=== PATIENT | female | born 1945 | race Two or more races ===

== ENCOUNTER 2021-05-01 11:09 | Emergency (ER) | payer BC ==
[~2021-05-01] VITALS: Ht 152.4 cm; Wt 78.0 kg
[~2021-05-01 11:09] MED LIST: ATOR40TA52; CLOP75TA28; FENO160T8; INSU100I4; INSUINJ37; LOSA100T30
[2021-05-01 12:29] VITALS: BP 153/63
[2021-05-01] MEDS ORDERED: ACETAMINOPHEN 325 MG TAB PO ONE ×2 (15:04→15:15)
== END 2021-05-01 15:09 | disposition home or self-care (01) ==
LOC: ER 11:09
DX: R51.9 Headache, unspecified (principal); D32.9 Benign neoplasm of meninges, unspecified; E11.9 Type 2 diabetes mellitus without complications; I10 Essential (primary) hypertension; Z86.73 Personal history of transient ischemic attack (TIA), and cerebral infarction without residual deficits
CPT/HCPCS: 70450; 81002

== ENCOUNTER 2022-10-14 23:24 | Inpatient (IN) | payer MEDICARE, BC ==
[~2022-10-14] VITALS: Ht 152.4 cm; Wt 69.8 kg
[2022-10-15] MEDS ORDERED: ONDANSETRON HCL 4 MG/2 ML VIAL IV ONE ×2 (01:45→04:45)
[2022-10-15] MEDS ORDERED: MORPHINE SULFATE 4 MG/ML SYR/VIAL IV PRN (01:45)
[2022-10-15 02:37] LABS: Hemoglobin 13.7 g/dL (12.2-16.2)
[2022-10-15 02:53] LABS: INR 1.14 (0.9-1.15); Partial Thromboplastin Time 32.1 sec (24.6-33.4)
[2022-10-15 02:54] LABS: Albumin 3.3 g/dL (3.4-5.0); Calcium 9.1 mg/dL (8.5-10.1); Potassium 4.1 mmol/L (3.5-5.1)
[2022-10-15 02:56] LABS: Acetaminophen < 2.0 ug/mL (10-30); Salicylate < 1.7 mg/dL (2.8-20.0)
[2022-10-15 02:57] LABS: BUN/Creatinine Ratio 28.9; Bilirubin, Total 0.9 mg/dL (0.2-1.0); Total Protein 7.2 g/dL (6.4-8.2)
[2022-10-15 03:10] VITALS: BP 131/64
[2022-10-15 03:13] LABS: Basophils # (auto) 0.1 10 ^3/uL (0-0.2); Basophils % (auto) 0.5 % (0.0-2.0); Eosinophils # (auto) 0.1 10 ^3/uL (0-0.8); Hematocrit 42.7 % (36.0-46.0); Lymphocytes % (auto) 23.6 % (10.0-50.0); Mean Corpuscular Hemoglobin 27.8 pg (28.0-32.0); Mean Corpuscular Hgb Conc. 32.2 g/dL (32.0-36.0); Mean Corpuscular Volume 86.3 fL (80.0-100.0); Monocytes # (auto) 1.2 10 ^3/uL (0-1.3); Monocytes % (auto) 9.2 % (0.0-12.0); Neutrophils # (auto) 8.3 10 ^3/uL (1.6-8.6); Neutrophils % (auto) 65.7 % (37.0-80.0); Nucleated Red Blood Cells % 0.3 %; Red Blood Cells 4.94 10^6/uL (4.0-5.20); Red Cell Distribution Width 13.7 % (11.8-14.3); White Blood Cell 12.6 10^3/uL (4.4-10.8)
[2022-10-15] MEDS ORDERED: MORPHINE SULFATE 4 MG/ML SYR/VIAL IV ONE (04:45)
[2022-10-15 04:57] LABS: Urine Bacteria NONE SEEN /hpf (None Seen); Urine Blood Negative /uL (Negative); Urine Hyaline Cast FEW /lpf (0 - 2); Urine Specific Gravity 1.033 (1.001-1.035); Urine WBC 2 /hpf (0 - 5)
[2022-10-15 05:03] LABS: Alcohol, Urine < 3.0 mg/dL (0-10); Amphetamine Screen, Urine NEGATIVE (NEGATIVE); Barbiturate Scree,Urine NEGATIVE (NEGATIVE); Benzodiazephine Screen, Urine NEGATIVE (NEGATIVE); Cannabinoid Screen, Urine NEGATIVE (NEGATIVE); Cocaine Screen, Urine NEGATIVE (NEGATIVE); Opiate Scree,Urine POSITIVE (NEGATIVE); Phencyclidine Screen, Urine NEGATIVE (NEGATIVE)
[2022-10-15] MEDS ORDERED: DOCUSATE SOD 100 MG CAP PO PRN (10:00)
[2022-10-15] MEDS ORDERED: DEXTROSE (50%) 50ML SYRG IV PRN (10:00)
[2022-10-15] MEDS ORDERED: ONDANSETRON HCL 4 MG/2 ML VIAL IV PRN (10:00)
[2022-10-15] MEDS: MORPHINE SULFATE 4 MG/ML SYR/VIAL IV PRN ×3 (10:50→19:07)
[2022-10-15] MEDS ORDERED: COLCHICINE 0.6 MG CAP PO ONE (12:00)
[2022-10-15] MEDS: InsuLIN REG 1unit/0.01ml Soln (100units/ml) SC SCH ×3 (12:06→23:16)
[2022-10-15] MEDS: ENOXAPARIN SOD 40 MG/0.4 ML SYRINGE SC SCH (12:07)
[2022-10-15] MEDS: ACCU-CHEK COMFORT CURVE STRIP VI SCH ×3 (12:07→23:14)
[2022-10-15 20:05] VITALS: BP 127/54
[2022-10-15 20:06] VITALS: BP 127/54
[2022-10-15] MEDS ORDERED: AMLO-489 PO (20:38)
[2022-10-15] MEDS ORDERED: FINE10TA PO (20:38)
[2022-10-15] MEDS ORDERED: CLOP75TA70 PO (20:38)
[2022-10-15] MEDS ORDERED: MONT-8 PO (20:38)
[2022-10-15] MEDS ORDERED: ASPI1TAB37 PO (20:38)
[2022-10-15] MEDS ORDERED: LEV75T PO (20:38)
[2022-10-15] MEDS ORDERED: LOSA-69 PO (20:38)
[2022-10-15] MEDS ORDERED: INSU100I4 SC (20:38)
[2022-10-15] MEDS ORDERED: PANT40T PO (20:38)
[2022-10-15] MEDS ORDERED: FENO145T27 PO (20:38)
[2022-10-15] MEDS ORDERED: INSU1INJ19 SC (20:38)
[2022-10-15] MEDS ORDERED: TRAV0.0013 EACHEYE (20:38)
[2022-10-15] MEDS ORDERED: DAPA1TAB4 PO (20:38)
[2022-10-15] MEDS ORDERED: OMEG1CAP15 PO (20:38)
[2022-10-15] MEDS ORDERED: TIMO0.5S32 EACHEYE (20:38)
[2022-10-15] MEDS ORDERED: ZINC50TA7 PO (20:40)
[2022-10-15] MEDS ORDERED: ASCO500T11 PO (20:40)
[2022-10-15] MEDS ORDERED: CHOL20007 PO (20:40)
[2022-10-15 22:00] VITALS: BP 127/54
[2022-10-15] MEDS: COLCHICINE 0.6 MG CAP PO SCH (23:12)
[2022-10-15] MEDS: ATORVASTATIN 20 MG TAB PO SCH (23:13)
[2022-10-16] MEDS: MORPHINE SULFATE 4 MG/ML SYR/VIAL IV PRN ×4 (03:04→16:29)
[2022-10-16 05:00] VITALS: BP 125/58
[2022-10-16 05:42] LABS: Basophils # (auto) 0.1 10 ^3/uL (0-0.2); Basophils % (auto) 0.8 % (0.0-2.0); Eosinophils # (auto) 0.1 10 ^3/uL (0-0.8); Eosinophils % (auto) 0.4 % (0.0-7.0); Hematocrit 38.3 % (36.0-46.0); Hemoglobin 12.5 g/dL (12.2-16.2); Lymphocytes # (auto) 2.3 10 ^3/uL (0.4-5.4); Lymphocytes % (auto) 19.7 % (10.0-50.0); Mean Corpuscular Hemoglobin 28.1 pg (28.0-32.0); Mean Corpuscular Hgb Conc. 32.6 g/dL (32.0-36.0); Mean Corpuscular Volume 86.1 fL (80.0-100.0); Monocytes # (auto) 1.8 10 ^3/uL (0-1.3); Monocytes % (auto) 15.4 % (0.0-12.0); Neutrophils # (auto) 7.4 10 ^3/uL (1.6-8.6); Neutrophils % (auto) 63.7 % (37.0-80.0); Nucleated Red Blood Cells % 0.1 %; Red Blood Cells 4.45 10^6/uL (4.0-5.20); Red Cell Distribution Width 13.3 % (11.8-14.3); White Blood Cell 11.6 10^3/uL (4.4-10.8)
[2022-10-16 05:58] LABS: Albumin 2.7 g/dL (3.4-5.0); Calcium 9.2 mg/dL (8.5-10.1); Potassium 4.2 mmol/L (3.5-5.1)
[2022-10-16 06:01] LABS: BUN/Creatinine Ratio 33.3
[2022-10-16 06:13] LABS: Bilirubin, Total 1.1 mg/dL (0.2-1.0); Total Protein 6.4 g/dL (6.4-8.2)
[2022-10-16] MEDS: ACCU-CHEK COMFORT CURVE STRIP VI SCH ×4 (06:14→21:43)
[2022-10-16] MEDS: InsuLIN REG 1unit/0.01ml Soln (100units/ml) SC SCH ×4 (06:19→21:41)
[2022-10-16 09:00] VITALS: BP 134/65
[2022-10-16] MEDS: PANTOPRAZOLE 40 MG TAB PO SCH (09:12)
[2022-10-16] MEDS: CLOPIDOGREL BISULFATE 75 MG TAB PO SCH (09:12)
[2022-10-16] MEDS: ENOXAPARIN SOD 40 MG/0.4 ML SYRINGE SC SCH (09:13)
[2022-10-16] MEDS: LOSARTAN POTASSIUM 25 MG TAB PO SCH (09:13)
[2022-10-16] MEDS: COLCHICINE 0.6 MG CAP PO SCH (09:13)
[2022-10-16 13:00] VITALS: BP 125/62
[2022-10-16] MEDS ORDERED: predniSONE 20 MG TAB PO ONE (13:00)
[2022-10-16] MEDS ORDERED: PANTOPRAZOLE 40 MG TAB PO ONE (13:00)
[2022-10-16] MEDS ORDERED: HYDROcodone-ACET 5/325MG TAB PO PRN (13:15)
[2022-10-16 17:00] VITALS: BP_SYST 131; BP_SYST 141; BP_DIAS 59; BP_DIAS 93
[2022-10-16] MEDS: ATORVASTATIN 20 MG TAB PO SCH (21:42)
[2022-10-16 22:00] VITALS: BP 117/55
[2022-10-17 05:00] VITALS: BP 113/52
[2022-10-17] MEDS: InsuLIN REG 1unit/0.01ml Soln (100units/ml) SC SCH ×4 (05:41→21:47)
[2022-10-17] MEDS: ACCU-CHEK COMFORT CURVE STRIP VI SCH ×4 (05:42→21:44)
[2022-10-17] MEDS: MORPHINE SULFATE 4 MG/ML SYR/VIAL IV PRN (08:27)
[2022-10-17 08:29] VITALS: BP 127/65
[2022-10-17] MEDS ORDERED: PANTOPRAZOLE 40 MG TAB PO SCH (10:00)
[2022-10-17] MEDS ORDERED: predniSONE 20 MG TAB PO SCH (10:00)
[2022-10-17] MEDS: PANTOPRAZOLE 40 MG TAB PO SCH (10:33)
[2022-10-17] MEDS: CLOPIDOGREL BISULFATE 75 MG TAB PO SCH (10:33)
[2022-10-17] MEDS: ENOXAPARIN SOD 40 MG/0.4 ML SYRINGE SC SCH (10:34)
[2022-10-17] MEDS: LOSARTAN POTASSIUM 25 MG TAB PO SCH (10:34)
[2022-10-17 13:00] VITALS: BP 122/52
[2022-10-17 17:00] VITALS: BP 116/56
[2022-10-17] MEDS: ATORVASTATIN 20 MG TAB PO SCH (21:47)
[2022-10-17 22:00] VITALS: BP 116/46
[2022-10-18 05:00] VITALS: BP 121/50
[2022-10-18] MEDS: ACCU-CHEK COMFORT CURVE STRIP VI SCH ×4 (06:28→22:13)
[2022-10-18] MEDS: InsuLIN REG 1unit/0.01ml Soln (100units/ml) SC SCH ×4 (06:37→22:21)
[2022-10-18 09:00] VITALS: BP 128/55
[2022-10-18] MEDS: INSULIN LANTUS (GLARGINE) 1 /0.01ml (100units/ml) SC SCH (09:24)
[2022-10-18 09:40] LABS: Basophils # (auto) 0 10 ^3/uL (0-0.2); Basophils % (auto) 0.2 % (0.0-2.0); Eosinophils # (auto) 0 10 ^3/uL (0-0.8); Hematocrit 40.3 % (36.0-46.0); Hemoglobin 13.3 g/dL (12.2-16.2); Lymphocytes # (auto) 1.9 10 ^3/uL (0.4-5.4); Lymphocytes % (auto) 19.6 % (10.0-50.0); Mean Corpuscular Hemoglobin 28.6 pg (28.0-32.0); Mean Corpuscular Volume 86.4 fL (80.0-100.0); Monocytes # (auto) 0.6 10 ^3/uL (0-1.3); Monocytes % (auto) 6.4 % (0.0-12.0); Neutrophils # (auto) 7.3 10 ^3/uL (1.6-8.6); Neutrophils % (auto) 73.8 % (37.0-80.0); Nucleated Red Blood Cells % 0.1 %; Red Blood Cells 4.66 10^6/uL (4.0-5.20); Red Cell Distribution Width 13.5 % (11.8-14.3); White Blood Cell 9.9 10^3/uL (4.4-10.8)
[2022-10-18] MEDS: predniSONE 20 MG TAB PO SCH (09:41)
[2022-10-18] MEDS: PANTOPRAZOLE 40 MG TAB PO SCH (09:42)
[2022-10-18] MEDS: CLOPIDOGREL BISULFATE 75 MG TAB PO SCH (09:42)
[2022-10-18] MEDS: LOSARTAN POTASSIUM 25 MG TAB PO SCH (09:45)
[2022-10-18] MEDS: ENOXAPARIN SOD 40 MG/0.4 ML SYRINGE SC SCH (09:46)
[2022-10-18 10:02] LABS: Albumin 2.3 g/dL (3.4-5.0); Calcium 10.1 mg/dL (8.5-10.1); Potassium 4.6 mmol/L (3.5-5.1)
[2022-10-18 10:06] LABS: BUN/Creatinine Ratio 49.1; Bilirubin, Total 0.4 mg/dL (0.2-1.0); Total Protein 7.5 g/dL (6.4-8.2)
[2022-10-18 13:00] VITALS: BP 125/54
[2022-10-18] MEDS ORDERED: HYDROcodone-ACET 5/325MG TAB PO PRN (14:30)
[2022-10-18 17:00] VITALS: BP 136/55
[2022-10-18 22:00] VITALS: BP 136/67
[2022-10-18] MEDS: ATORVASTATIN 20 MG TAB PO SCH (22:14)
[2022-10-19 05:00] VITALS: BP 149/55
[2022-10-19] MEDS: MORPHINE SULFATE 4 MG/ML SYR/VIAL IV PRN (05:24)
[2022-10-19] MEDS: ACCU-CHEK COMFORT CURVE STRIP VI SCH ×2 (05:56→11:30)
[2022-10-19] MEDS: InsuLIN REG 1unit/0.01ml Soln (100units/ml) SC SCH ×2 (06:00→12:16)
[2022-10-19 08:38] VITALS: BP 138/69
[2022-10-19] MEDS: INSULIN LANTUS (GLARGINE) 1 /0.01ml (100units/ml) SC SCH (09:08)
[2022-10-19] MEDS: ENOXAPARIN SOD 40 MG/0.4 ML SYRINGE SC SCH (10:40)
[2022-10-19] MEDS: PANTOPRAZOLE 40 MG TAB PO SCH (10:46)
[2022-10-19] MEDS: predniSONE 20 MG TAB PO SCH (10:47)
[2022-10-19] MEDS: CLOPIDOGREL BISULFATE 75 MG TAB PO SCH (10:47)
[2022-10-19] MEDS: LOSARTAN POTASSIUM 25 MG TAB PO SCH (10:50)
[2022-10-19 13:14] VITALS: BP 129/61
[2022-10-19] MEDS ORDERED: METH4PAK PO (14:01)
== END 2022-10-19 15:50 | disposition home or self-care (01) | DRG 554 ==
LOC: ER 23:24 → OVERFLOW 10-15 10:05 → EAST 10-15 19:36
PROVIDERS: ADMIT Nurse Practitioner Family; ATTEND Student in an Organized Health Care Education/Training Program
DX: M11.831 Other specified crystal arthropathies, right wrist (principal); M11.861 Other specified crystal arthropathies, right knee; M10.9 Gout, unspecified; I25.10 Atherosclerotic heart disease of native coronary artery without angina pectoris; G89.29 Other chronic pain; I10 Essential (primary) hypertension; E11.65 Type 2 diabetes mellitus with hyperglycemia; D72.829 Elevated white blood cell count, unspecified; E78.5 Hyperlipidemia, unspecified; E11.9 Type 2 diabetes mellitus without complications; M13.131 Monoarthritis, not elsewhere classified, right wrist; Z20.822 Contact with and (suspected) exposure to COVID-19; M54.9 Dorsalgia, unspecified; Z86.73 Personal history of transient ischemic attack (TIA), and cerebral infarction without residual deficits; Z79.02 Long term (current) use of antithrombotics/antiplatelets; Z95.5 Presence of coronary angioplasty implant and graft
CPT/HCPCS: 36415; 71045; 72040; 73030; 73110; 76881; 80053; 80307; 80320; 80329; 81001; 82962; 83880; 84443; 84484; 84550; 85025; 85610; 85652; 85730; 86141; 87426; 93005; 93971; 96374; 96375; 96376; G0378; J1815; J2405

== ENCOUNTER 2023-05-11 23:51 | Emergency (ER) | payer MEDICARE, BC ==
[~2023-05-11] VITALS: Ht 152.4 cm; Wt 72.8 kg
[~2023-05-11 23:51] MED LIST changes: +AMLO1TAB22 PO; +ASCO500T11 PO; +ASPI-628 PO; -ATOR40TA52; +CHOL20007 PO; -CLOP75TA28; +CLOP75TA70 PO; +DAPA1TAB4 PO; +FENO145T27 PO; -FENO160T8; +FINE10TA PO; -INSU100I4; +INSU100I4 SC; +INSU1INJ19 SC; -INSUINJ37; +LEV75T PO; -LOSA100T30; +LOSA50TA46 PO; +METH4PAK PO; +MONT-8 PO; +OMEG1CAP15 PO; +PANT40T PO; +TIMO0.5S32 EACHEYE; +TRAV0.0013 EACHEYE; +ZINC50TA7 PO
[2023-05-12] MEDS ORDERED: SODIUM CHLORIDE 0.9% 1,000 ML IV ONE (00:30)
[2023-05-12 00:55] LABS: Albumin 3.9 g/dL (3.4-5.0); BUN/Creatinine Ratio 31.6 (10.0-20.0); Calcium 9.3 mg/dL (8.5-10.1); Potassium 4.3 mmol/L (3.5-5.1)
[2023-05-12 00:58] LABS: Bilirubin, Total 0.4 mg/dL (0.2-1.0); Total Protein 8.2 g/dL (6.4-8.2)
[2023-05-12 01:03] LABS: Basophils # (auto) 0 10 ^3/uL (0-0.2); Basophils % (auto) 0.3 % (0.0-2.0); Eosinophils # (auto) 0 10 ^3/uL (0-0.8); Hematocrit 44.6 % (36.0-46.0); Hemoglobin 14.8 g/dL (12.2-16.2); Lymphocytes # (auto) 1.9 10 ^3/uL (0.4-5.4); Lymphocytes % (auto) 20.9 % (10.0-50.0); Mean Corpuscular Hemoglobin 28.3 pg (28.0-32.0); Mean Corpuscular Hgb Conc. 33.1 g/dL (32.0-36.0); Mean Corpuscular Volume 85.5 fL (80.0-100.0); Monocytes # (auto) 0.1 10 ^3/uL (0-1.3); Monocytes % (auto) 0.9 % (0.0-12.0); Neutrophils # (auto) 7.2 10 ^3/uL (1.6-8.6); Neutrophils % (auto) 77.9 % (37.0-80.0); Red Blood Cells 5.21 10^6/uL (4.0-5.20); Red Cell Distribution Width 14.5 % (11.8-14.3); White Blood Cell 9.2 10^3/uL (4.4-10.8)
[2023-05-12] MEDS ORDERED: InsuLIN REG 1unit/0.01ml Soln (100units/ml) IV ONE (01:15)
[2023-05-12 01:58] VITALS: BP 165/60; PULSE 83; RESP 16; TEMP 97.3; O2SAT 95
== END 2023-05-12 02:47 | disposition home or self-care (01) ==
LOC: ER 23:51
DX: E11.9 Type 2 diabetes mellitus without complications (principal); I10 Essential (primary) hypertension; I25.2 Old myocardial infarction; Z86.73 Personal history of transient ischemic attack (TIA), and cerebral infarction without residual deficits; Z98.890 Other specified postprocedural states; Z79.82 Long term (current) use of aspirin; Z79.4 Long term (current) use of insulin; Z79.899 Other long term (current) drug therapy
CPT/HCPCS: 36415; 71045; 80053; 82962; 84484; 85025; 96374; 99284; J1815; J7030

== ENCOUNTER 2023-06-13 15:44 | Emergency (ER) | payer BC ==
[~2023-06-13] VITALS: Ht 152.4 cm; Wt 72.6 kg
[2023-06-13 16:41] LABS: Basophils # (auto) 0.2 10 ^3/uL (0-0.2); Basophils % (auto) 2.7 % (0.0-2.0); Eosinophils # (auto) 0.2 10 ^3/uL (0-0.8); Eosinophils % (auto) 2.8 % (0.0-7.0); Hematocrit 41.5 % (36.0-46.0); Hemoglobin 13.6 g/dL (12.2-16.2); Lymphocytes # (auto) 3.4 10 ^3/uL (0.4-5.4); Lymphocytes % (auto) 40.8 % (10.0-50.0); Mean Corpuscular Hemoglobin 27.9 pg (28.0-32.0); Mean Corpuscular Hgb Conc. 32.7 g/dL (32.0-36.0); Mean Corpuscular Volume 85.2 fL (80.0-100.0); Monocytes # (auto) 0.6 10 ^3/uL (0-1.3); Monocytes % (auto) 6.9 % (0.0-12.0); Neutrophils # (auto) 3.9 10 ^3/uL (1.6-8.6); Neutrophils % (auto) 46.8 % (37.0-80.0); Nucleated Red Blood Cells % 0.1 %; Red Blood Cells 4.87 10^6/uL (4.0-5.20); White Blood Cell 8.3 10^3/uL (4.4-10.8)
[2023-06-13 16:54] LABS: INR 1.05 (0.9-1.15); Partial Thromboplastin Time 30.7 SEC (24.5-34.5)
[2023-06-13 17:04] LABS: Potassium 4.2 mmol/L (3.5-5.1)
[2023-06-13 17:09] LABS: Albumin 3.6 g/dL (3.4-5.0); Calcium 9.3 mg/dL (8.5-10.1)
[2023-06-13 17:12] LABS: Bilirubin, Total 0.2 mg/dL (0.2-1.0); Total Protein 7.3 g/dL (6.4-8.2)
[2023-06-13 18:35] VITALS: BP 140/70; PULSE 65; RESP 16; O2SAT 96
== END 2023-06-13 18:43 | disposition home or self-care (01) ==
LOC: ER 15:44
DX: M71.38 Other bursal cyst, other site (principal); I12.9 Hypertensive chronic kidney disease with stage 1 through stage 4 chronic kidney disease, or unspecified chronic kidney disease; E13.22 Other specified diabetes mellitus with diabetic chronic kidney disease; N18.30 Chronic kidney disease, stage 3 unspecified; Z98.890 Other specified postprocedural states; Z87.891 Personal history of nicotine dependence; Z79.899 Other long term (current) drug therapy; Z79.84 Long term (current) use of oral hypoglycemic drugs; Z86.73 Personal history of transient ischemic attack (TIA), and cerebral infarction without residual deficits
CPT/HCPCS: 36415; 80053; 85025; 85610; 85730; 93971

== ENCOUNTER 2024-06-20 15:53 | Inpatient (IN) | payer MEDICARE, BC ==
[~2024-06-20] VITALS: Ht 152.4 cm; Wt 72.0 kg
[~2024-06-20 15:53] MED LIST changes: +LOSA-534 PO; -LOSA50TA46 PO
[2024-06-20 17:30] LABS: Albumin 3.9 g/dL (3.2-4.8); Alkaline Phosphatase 92 U/L (46-116); Anion Gap 7 (5-15); Aspartate Aminotransferase 17 U/L (13-40); BUN/Creatinine Ratio 15.4 (10.0-20.0); Bilirubin, Total 0.3 mg/dL (0.2-1.0); Blood Urea Nitrogen 12 mg/dL (9-23); Calcium 9.3 mg/dL (8.7-10.4); Carbon Dioxide 23 mmol/L (20-30); Chloride 112 mmol/L (98-107); Glucose 80 mg/dL (74-106); Lipase 30 U/L (12-53); Potassium 4.1 mmol/L (3.5-5.1); Sodium 142 mmol/L (136-145); Total Protein 7.5 g/dL (5.7-8.2)
[2024-06-20 18:23] LABS: Alanine Aminotransferase 9 U/L (7-40)
[2024-06-20 18:37] LABS: Basophils # (auto) 0.1 10 ^3/uL (0-0.2); Basophils % (auto) 1.8 % (0.0-2.0); Eosinophils # (auto) 0.3 10 ^3/uL (0-0.8); Eosinophils % (auto) 4.6 % (0.0-7.0); Hematocrit 44.2 % (36.0-46.0); Hemoglobin 14.6 g/dL (12.2-16.2); Lymphocytes # (auto) 3.6 10 ^3/uL (0.4-5.4); Lymphocytes % (auto) 50.5 % (10.0-50.0); Mean Corpuscular Hemoglobin 29.5 pg (28.0-32.0); Mean Corpuscular Volume 89.5 fL (80.0-100.0); Monocytes # (auto) 0.6 10 ^3/uL (0-1.3); Monocytes % (auto) 8.7 % (0.0-12.0); Neutrophils # (auto) 2.5 10 ^3/uL (1.6-8.6); Neutrophils % (auto) 34.4 % (37.0-80.0); Platelet Count (auto) 325 10^3/uL (140-450); Red Blood Cells 4.94 10^6/uL (4.0-5.20); Red Cell Distribution Width 14.6 % (11.8-14.3); White Blood Cell 7.2 10^3/uL (4.4-10.8)
[2024-06-20] MEDS: PANTOPRAZOLE 40 MG/10 ML VIAL INJ IV ONE (21:10)
[2024-06-20 21:20] VITALS: PULSE 60; RESP 16; O2SAT 94
[2024-06-20] MEDS ORDERED: DOCUSATE SOD 100 MG CAP PO PRN (21:30)
[2024-06-20] MEDS ORDERED: DEXTROSE (50%) 50ML SYRG IV PRN (21:30)
[2024-06-20] MEDS ORDERED: ACETAMINOPHEN 325 MG TAB PO PRN (21:30)
[2024-06-20] MEDS: LACTATED RINGER'S 1,000 ML IV ONE (21:30)
[2024-06-20] MEDS ORDERED: ONDANSETRON HCL 4 MG/2 ML VIAL IV PRN (21:30)
[2024-06-20] MEDS: INSULIN LANTUS (GLARGINE) 1 /0.01ml (100units/ml) SC SCH (22:00)
[2024-06-20] MEDS: TRAVOPROST 0.004% EACHEYE SCH (22:00)
[2024-06-20 22:02] LABS: Urine Bacteria FEW /hpf (None Seen); Urine Blood Negative /uL (Negative); Urine Budding Yeast OCCASIONAL /hpf (None Seen); Urine Clarity Clear (Clear); Urine Color Light-Yellow (Yellow); Urine Protein, UAD TRACE (Negative); Urine Urobilinogen Normal (Negative); Urine WBC 38 /hpf (0 - 5)
[2024-06-20] MEDS: SODIUM CHLOR 0.9% PF (SALINE LOCK) 10ML VIAL/SYR IV SCH (22:04)
[2024-06-20] MEDS: TIMOLOL MAL 0.5% OPTH(EYE) SOL 5ML EACHEYE SCH (22:37)
[2024-06-20] MEDS: LOSARTAN POTASSIUM 50 MG TAB PO SCH (22:39)
[2024-06-21] MEDS: InsuLIN REG 1unit/0.01ml Soln (100units/ml) SC SCH
[2024-06-21] MEDS: ACCU-CHEK COMFORT CURVE STRIP VI SCH
[2024-06-21 01:40] VITALS: BP 145/74; PULSE 107; RESP 16; TEMP 98.4; O2SAT 97
[2024-06-21 05:00] VITALS: BP_SYST 131; BP_SYST 171; BP_DIAS 64; BP_DIAS 78; PULSE 114; PULSE 59; RESP 16; TEMP 98.5; O2SAT 94; O2SAT 97
[2024-06-21] MEDS: cloNIDine HCL 0.1 MG TAB PO ONE (06:13)
[2024-06-21] MEDS: LEVOTHYROXINE SODIUM 50 MCG TAB PO SCH (06:14)
[2024-06-21 07:12] LABS: Albumin 3.7 g/dL (3.2-4.8); Alkaline Phosphatase 87 U/L (46-116); Anion Gap 7 (5-15); Aspartate Aminotransferase 18 U/L (13-40); BUN/Creatinine Ratio 18.2 (10.0-20.0); Blood Urea Nitrogen 10 mg/dL (9-23); Calcium 9.4 mg/dL (8.7-10.4); Carbon Dioxide 25 mmol/L (20-30); Chloride 108 mmol/L (98-107); Glucose 80 mg/dL (74-106); Potassium 3.5 mmol/L (3.5-5.1); Sodium 140 mmol/L (136-145)
[2024-06-21 07:13] LABS: Bilirubin, Total 0.5 mg/dL (0.2-1.0)
[2024-06-21 07:16] LABS: Alanine Aminotransferase < 9 U/L (7-40)
[2024-06-21 07:19] LABS: Basophils # (auto) 0.1 10 ^3/uL (0-0.2); Basophils % (auto) 1.4 % (0.0-2.0); Eosinophils # (auto) 0.4 10 ^3/uL (0-0.8); Eosinophils % (auto) 4.9 % (0.0-7.0); Hematocrit 43.3 % (36.0-46.0); Hemoglobin 14.3 g/dL (12.2-16.2); Lymphocytes # (auto) 3.3 10 ^3/uL (0.4-5.4); Lymphocytes % (auto) 42.3 % (10.0-50.0); Mean Corpuscular Hemoglobin 29.6 pg (28.0-32.0); Mean Corpuscular Volume 89.8 fL (80.0-100.0); Monocytes # (auto) 0.7 10 ^3/uL (0-1.3); Monocytes % (auto) 8.5 % (0.0-12.0); Neutrophils # (auto) 3.3 10 ^3/uL (1.6-8.6); Neutrophils % (auto) 42.9 % (37.0-80.0); Nucleated Red Blood Cells % 0.2 %; Platelet Count (auto) 293 10^3/uL (140-450); Red Blood Cells 4.82 10^6/uL (4.0-5.20); Red Cell Distribution Width 14.3 % (11.8-14.3); White Blood Cell 7.7 10^3/uL (4.4-10.8)
[2024-06-21 08:54] VITALS: BP 126/63; PULSE 55; RESP 18; TEMP 97.6; O2SAT 92
[2024-06-21 09:33] LABS: INR 1.13 (0.9-1.15); Prothrombin Time 11.9 sec (9.3-11.8)
[2024-06-21 10:06] LABS: Hepatitis B Surface Antigen Negative (Negative)
[2024-06-21 10:27] LABS: Hepatitis C Antibody Negative (Negative)
[2024-06-21] MEDS ORDERED: BACL10TA PO (10:54)
[2024-06-21] MEDS ORDERED: CARV6.2551 PO (10:54)
[2024-06-21] MEDS: ASCORBIC ACID 500 MG TAB PO SCH (10:57)
[2024-06-21] MEDS: ZINC SULFATE 220mg CAP or TAB PO SCH (10:57)
[2024-06-21] MEDS: PANTOPRAZOLE 40 MG/10 ML VIAL INJ IV SCH (10:58)
[2024-06-21] MEDS: amLODIPine BESYLATE 5 MG TAB PO SCH (11:00)
[2024-06-21 11:42] VITALS: BP 105/65; PULSE 59; RESP 16; TEMP 98.2; O2SAT 92
[2024-06-21 16:39] VITALS: BP 132/72; PULSE 65; RESP 16; TEMP 98; O2SAT 90
[2024-06-21] MEDS: metroNIDAZOLE 500MG/100ML 100 ML IV SCH (16:52)
[2024-06-21] MEDS: CHOLECALCIFEROL (VITD3) 1,000UNIT=25mCg TAB PO SCH (16:56)
[2024-06-21] MEDS: OMEGA ACID ETHYL ESTERS PO SCH (16:57)
[2024-06-21] MEDS: FENOFIBRATE 145 MG PO SCH (16:58)
[2024-06-21] MEDS: MONTELUKAST SODIUM 10 MG TAB PO SCH (18:56)
[2024-06-21] MEDS: levoFLOXacin 500MG 100 ML IV ONE (18:58)
[2024-06-21 21:00] VITALS: BP 135/63; PULSE 66; RESP 20; TEMP 98; O2SAT 96
[2024-06-21] MEDS: ENOXAPARIN SOD 40 MG/0.4 ML SYRINGE SC ONE (21:29)
[2024-06-21] MEDS: ASPirin 81 mg TAB PO ONE (21:56)
[2024-06-22] VITALS (7 sets, daily range): BP systolic 131–164; BP diastolic 60–90; PULSE 57–61; RESP 16–20; TEMP 36.7; O2SAT 95–96
[2024-06-22 06:01] LABS: Basophils # (auto) 0.1 10 ^3/uL (0-0.2); Basophils % (auto) 1.2 % (0.0-2.0); Eosinophils # (auto) 0.3 10 ^3/uL (0-0.8); Eosinophils % (auto) 5.2 % (0.0-7.0); Hematocrit 40.5 % (36.0-46.0); Hemoglobin 13.9 g/dL (12.2-16.2); Lymphocytes # (auto) 2.9 10 ^3/uL (0.4-5.4); Lymphocytes % (auto) 48.4 % (10.0-50.0); Mean Corpuscular Hemoglobin 30.3 pg (28.0-32.0); Mean Corpuscular Hgb Conc. 34.3 g/dL (32.0-36.0); Mean Corpuscular Volume 88.4 fL (80.0-100.0); Monocytes # (auto) 0.6 10 ^3/uL (0-1.3); Monocytes % (auto) 9.3 % (0.0-12.0); Neutrophils # (auto) 2.2 10 ^3/uL (1.6-8.6); Neutrophils % (auto) 35.9 % (37.0-80.0); Nucleated Red Blood Cells % 0.2 %; Platelet Count (auto) 272 10^3/uL (140-450); Red Blood Cells 4.58 10^6/uL (4.0-5.20); Red Cell Distribution Width 14.2 % (11.8-14.3)
[2024-06-22 06:21] LABS: Albumin 3.4 g/dL (3.2-4.8); Alkaline Phosphatase 86 U/L (46-116); Anion Gap 6 (5-15); Aspartate Aminotransferase 16 U/L (13-40); BUN/Creatinine Ratio 18.6 (10.0-20.0); Blood Urea Nitrogen 11 mg/dL (9-23); Calcium 9.4 mg/dL (8.7-10.4); Carbon Dioxide 25 mmol/L (20-30); Chloride 108 mmol/L (98-107); Glucose 98 mg/dL (74-106); Potassium 3.6 mmol/L (3.5-5.1); Sodium 139 mmol/L (136-145)
[2024-06-22 06:22] LABS: Bilirubin, Total 0.5 mg/dL (0.2-1.0); Total Protein 6.5 g/dL (5.7-8.2)
[2024-06-22 06:24] LABS: Alanine Aminotransferase < 9 U/L (7-40)
[2024-06-22] MEDS: levoFLOXacin 250MG 50 ML IV SCH (11:25)
[2024-06-22] MEDS: ENOXAPARIN SOD 40 MG/0.4 ML SYRINGE SC SCH (11:26)
[2024-06-22] MEDS: ASPirin 81 mg TAB PO SCH (11:27)
[2024-06-22] MEDS: HYDROcodone-ACET 5/325MG TAB PO PRN (11:27)
[2024-06-22] MEDS ORDERED: ACETAMINOPHEN 325 MG TAB PO PRN (16:15)
== END 2024-06-22 17:33 | disposition home or self-care (01) | DRG 392 ==
LOC: ER 15:53 → WEST WING 21:19 → OVERFLOW 21:19 → WEST WING 06-21 01:44
PROVIDERS: ADMIT Internal Medicine Pulmonary Disease; ATTEND Internal Medicine Pulmonary Disease
DX: K52.9 Noninfective gastroenteritis and colitis, unspecified (principal); K92.2 Gastrointestinal hemorrhage, unspecified; I10 Essential (primary) hypertension; E03.9 Hypothyroidism, unspecified; H40.9 Unspecified glaucoma; E11.9 Type 2 diabetes mellitus without complications; Z86.73 Personal history of transient ischemic attack (TIA), and cerebral infarction without residual deficits; Z79.899 Other long term (current) drug therapy; Z79.4 Long term (current) use of insulin
CPT/HCPCS: 36415; 74176; 76705; 80053; 81001; 82270; 82962; 83605; 83690; 84484; 85025; 85048; 85610; 86803; 87045; 87177; 87340; 87427; 87493; 93005; 93971; 96374; G0378; J1815; J1956; J2470; J3490

== ENCOUNTER 2024-08-02 16:21 | Inpatient (IN) | payer MEDICARE, BC ==
[~2024-08-02] VITALS: Ht 149.9 cm; Wt 77.5 kg
[~2024-08-02 16:21] MED LIST changes: +BACL10TA PO; +CARV6.2551 PO; -METH4PAK PO
[2024-08-02 17:22] LABS: Basophils # (auto) 0.1 10 ^3/uL (0-0.2); Basophils % (auto) 1.1 % (0.0-2.0); Eosinophils # (auto) 0.3 10 ^3/uL (0-0.8); Eosinophils % (auto) 3.1 % (0.0-7.0); Hematocrit 40.9 % (36.0-46.0); Lymphocytes # (auto) 3.4 10 ^3/uL (0.4-5.4); Lymphocytes % (auto) 37.1 % (10.0-50.0); Mean Corpuscular Hemoglobin 30.5 pg (28.0-32.0); Mean Corpuscular Hgb Conc. 34.3 g/dL (32.0-36.0); Mean Corpuscular Volume 88.8 fL (80.0-100.0); Monocytes # (auto) 0.9 10 ^3/uL (0-1.3); Monocytes % (auto) 9.2 % (0.0-12.0); Neutrophils # (auto) 4.6 10 ^3/uL (1.6-8.6); Neutrophils % (auto) 49.5 % (37.0-80.0); Nucleated Red Blood Cells % 0.1 %; Platelet Count (auto) 247 10^3/uL (140-450); Red Cell Distribution Width 14.4 % (11.8-14.3); White Blood Cell 9.2 10^3/uL (4.4-10.8)
[2024-08-02 17:30] LABS: INR 1.12 (0.9-1.15); Prothrombin Time 11.8 sec (9.3-11.8)
[2024-08-02 17:37] LABS: Alanine Aminotransferase 10 U/L (7-40); Albumin 4.2 g/dL (3.2-4.8); Alkaline Phosphatase 97 U/L (46-116); Anion Gap 9 (5-15); Aspartate Aminotransferase 13 U/L (13-40); BUN/Creatinine Ratio 26.7 (10.0-20.0); Bilirubin, Total 0.5 mg/dL (0.2-1.0); Blood Urea Nitrogen 27 mg/dL (9-23); Calcium 10.3 mg/dL (8.7-10.4); Carbon Dioxide 25 mmol/L (20-31); Chloride 107 mmol/L (98-107); Glucose 218 mg/dL (74-106); Magnesium 1.8 mg/dL (1.6-2.6); Potassium 4.2 mmol/L (3.5-5.1); Sodium 141 mmol/L (136-145)
[2024-08-02 18:54] LABS: Erythrocyte Sedimentation Rate 54 mm/hr (0-20)
[2024-08-02 20:15] VITALS: PULSE 65; RESP 15; O2SAT 93
[2024-08-02] MEDS: HYDROcodone-ACET 5/325MG TAB PO ONE (20:23)
[2024-08-02] MEDS ORDERED: DOCUSATE SOD 100 MG CAP PO PRN (22:00)
[2024-08-02] MEDS: ACCU-CHEK COMFORT CURVE STRIP VI SCH (22:00)
[2024-08-02] MEDS: InsuLIN REG 1unit/0.01ml Soln (100units/ml) SC SCH (22:00)
[2024-08-02] MEDS ORDERED: DEXTROSE (50%) 50ML SYRG IV PRN (22:00)
[2024-08-02] MEDS: SODIUM CHLOR 0.9% PF (SALINE LOCK) 10ML VIAL/SYR IV SCH (22:13)
[2024-08-02] MEDS: CARVEDILOL 3.125 MG TAB PO SCH (22:32)
[2024-08-02] MEDS ORDERED: MORPHINE SULFATE INJ 2 MG/ml SYRG IV PRN (22:45)
[2024-08-02] MEDS ORDERED: NITROGLYCERIN 0.4 MG SL TAB SL PRN (22:45)
[2024-08-02] MEDS: MORPHINE SULFATE INJ 2 MG/ml SYRG IV PRN (23:44)
[2024-08-02] MEDS: ONDANSETRON HCL 4 MG/2 ML VIAL IV PRN (23:44)
[2024-08-03] VITALS (9 sets, daily range): BP systolic 103–156; BP diastolic 51–79; PULSE 56–66; RESP 16–19; TEMP 97.6–98.6; O2SAT 91–99
[2024-08-03 06:14] LABS: Basophils # (auto) 0.1 10 ^3/uL (0-0.2); Basophils % (auto) 1.2 % (0.0-2.0); Eosinophils # (auto) 0.2 10 ^3/uL (0-0.8); Hematocrit 38.2 % (36.0-46.0); Hemoglobin 13.2 g/dL (12.2-16.2); Mean Corpuscular Hemoglobin 30.6 pg (28.0-32.0); Mean Corpuscular Hgb Conc. 34.5 g/dL (32.0-36.0); Mean Corpuscular Volume 88.7 fL (80.0-100.0); Monocytes # (auto) 0.7 10 ^3/uL (0-1.3); Monocytes % (auto) 8.6 % (0.0-12.0); Neutrophils # (auto) 4.3 10 ^3/uL (1.6-8.6); Neutrophils % (auto) 51.2 % (37.0-80.0); Platelet Count (auto) 230 10^3/uL (140-450); Red Cell Distribution Width 14.1 % (11.8-14.3); White Blood Cell 8.3 10^3/uL (4.4-10.8)
[2024-08-03 06:23] LABS: Alkaline Phosphatase 80 U/L (46-116); Anion Gap 11 (5-15); Aspartate Aminotransferase 10 U/L (13-40); BUN/Creatinine Ratio 27.7 (10.0-20.0); Bilirubin, Total 0.7 mg/dL (0.2-1.0); Blood Urea Nitrogen 18 mg/dL (9-23); Calcium 9.7 mg/dL (8.7-10.4); Carbon Dioxide 23 mmol/L (20-31); Chloride 106 mmol/L (98-107); Glucose 143 mg/dL (74-106); Potassium 3.5 mmol/L (3.5-5.1); Sodium 140 mmol/L (136-145)
[2024-08-03 06:24] LABS: Total Protein 7.1 g/dL (5.7-8.2)
[2024-08-03 06:27] LABS: Alanine Aminotransferase < 9 U/L (7-40)
[2024-08-03] MEDS: LEVOTHYROXINE SODIUM 25 MCG TAB PO SCH (06:38)
[2024-08-03] MEDS: HYDROcodone-ACET 5/325MG TAB PO PRN ×2 (06:39→21:18)
[2024-08-03] MEDS: InsuLIN REG 1unit/0.01ml Soln (100units/ml) SC SCH (06:40)
[2024-08-03] MEDS: FAMOTIDINE (10MG/ML) 2ML VL IV SCH (09:52)
[2024-08-03] MEDS: amLODIPine BESYLATE 5 MG TAB PO SCH (09:52)
[2024-08-03] MEDS: ASPirin 81 mg TAB PO SCH (09:52)
[2024-08-03] MEDS: LOSARTAN POTASSIUM 50 MG TAB PO ONE (12:21)
[2024-08-03 16:23] LABS: T3 Total 0.95 ng/mL (0.60-1.81)
[2024-08-03 16:24] LABS: Free T4 (Free Thyroxine) 1.41 ng/dL (0.89-1.76)
[2024-08-03 23:43] LABS: Urine Bacteria FEW /hpf (None Seen); Urine Blood Negative /uL (Negative); Urine Budding Yeast OCCASIONAL /hpf (None Seen); Urine Clarity Clear (Clear); Urine Color Yellow (Yellow); Urine Mucus FEW (None Seen); Urine Protein, UAD Negative (Negative); Urine Specific Gravity 1.029 (1.001-1.035); Urine Urobilinogen 2 mg/dL (Negative); Urine WBC 120 /hpf (0 - 5); Urine pH 5.5 (5.0-9.0)
[2024-08-03 23:55] LABS: Amphetamine Screen, Urine Neg (NEGATIVE); Barbiturate Scree,Urine Neg (NEGATIVE); Benzodiazephine Screen, Urine Neg (NEGATIVE); Cannabinoid Screen, Urine Neg (NEGATIVE); Cocaine Screen, Urine Neg (NEGATIVE); Opiate Scree,Urine Pos (NEGATIVE); Phencyclidine Screen, Urine Neg (NEGATIVE)
[2024-08-04] VITALS (8 sets, daily range): BP systolic 122–139; BP diastolic 42–81; PULSE 55–65; RESP 16–18; TEMP 97.8–98.4; O2SAT 89–98
[2024-08-04] MEDS: ACETAMINOPHEN 325 MG TAB PO PRN (02:25)
[2024-08-04] MEDS: cefTRIAXone 1GM/50ML D5W 50 ML IV ONE (04:52)
[2024-08-04 06:20] LABS: Basophils # (auto) 0.1 10 ^3/uL (0-0.2); Basophils % (auto) 0.9 % (0.0-2.0); Eosinophils # (auto) 0.3 10 ^3/uL (0-0.8); Eosinophils % (auto) 4.5 % (0.0-7.0); Hematocrit 39.3 % (36.0-46.0); Hemoglobin 13.2 g/dL (12.2-16.2); Lymphocytes # (auto) 3.4 10 ^3/uL (0.4-5.4); Mean Corpuscular Hemoglobin 29.7 pg (28.0-32.0); Mean Corpuscular Hgb Conc. 33.6 g/dL (32.0-36.0); Mean Corpuscular Volume 88.5 fL (80.0-100.0); Monocytes # (auto) 0.6 10 ^3/uL (0-1.3); Monocytes % (auto) 8.9 % (0.0-12.0); Neutrophils # (auto) 2.7 10 ^3/uL (1.6-8.6); Neutrophils % (auto) 37.7 % (37.0-80.0); Nucleated Red Blood Cells % 0.2 %; Platelet Count (auto) 245 10^3/uL (140-450); Red Blood Cells 4.44 10^6/uL (4.0-5.20); Red Cell Distribution Width 13.8 % (11.8-14.3)
[2024-08-04 06:27] LABS: Anion Gap 8 (5-15); Carbon Dioxide 26 mmol/L (20-31); Chloride 105 mmol/L (98-107); Potassium 3.8 mmol/L (3.5-5.1); Sodium 139 mmol/L (136-145)
[2024-08-04 06:28] LABS: Calcium 9.9 mg/dL (8.7-10.4)
[2024-08-04 06:33] LABS: BUN/Creatinine Ratio 34.3 (10.0-20.0); Blood Urea Nitrogen 24 mg/dL (9-23); Glucose 151 mg/dL (74-106)
[2024-08-04] MEDS: LOSARTAN POTASSIUM 50 MG TAB PO SCH (09:42)
[2024-08-04] MEDS ORDERED: IOHEXOL 300 MG/ML 100ML BOTTLE IJ ONE (13:09)
[2024-08-04 15:02] LABS: Urine Bacteria FEW /hpf (None Seen); Urine Blood Negative /uL (Negative); Urine Clarity Clear (Clear); Urine Color Yellow (Yellow); Urine Protein, UAD TRACE (Negative); Urine Specific Gravity 1.036 (1.001-1.035); Urine Urobilinogen Normal (Negative); Urine WBC 54 /hpf (0 - 5); Urine pH 5.5 (5.0-9.0)
[2024-08-04] MEDS: ATORVASTATIN 20 MG TAB PO SCH (22:36)
[2024-08-05] VITALS (9 sets, daily range): BP systolic 135–165; BP diastolic 53–70; PULSE 55–66; RESP 16–20; TEMP 97.6–98.4; O2SAT 91–95
[2024-08-05] MEDS: cefTRIAXone 1GM/50ML D5W 50 ML IV SCH (05:03)
[2024-08-05 06:32] LABS: Alanine Aminotransferase < 9 U/L (7-40); Alkaline Phosphatase 93 U/L (46-116); Anion Gap 8 (5-15); BUN/Creatinine Ratio 32.4 (10.0-20.0); Blood Urea Nitrogen 24 mg/dL (9-23); Calcium 10.1 mg/dL (8.7-10.4); Carbon Dioxide 24 mmol/L (20-31); Chloride 104 mmol/L (98-107); Glucose 193 mg/dL (74-106); Magnesium 1.6 mg/dL (1.6-2.6); Potassium 4.1 mmol/L (3.5-5.1); Sodium 136 mmol/L (136-145)
[2024-08-05 06:33] LABS: Albumin 4.3 g/dL (3.2-4.8); Aspartate Aminotransferase 11 U/L (13-40)
[2024-08-05 06:34] LABS: Basophils # (auto) 0.1 10 ^3/uL (0-0.2); Basophils % (auto) 1.4 % (0.0-2.0); Bilirubin, Total 0.4 mg/dL (0.2-1.0); Eosinophils # (auto) 0.4 10 ^3/uL (0-0.8); Eosinophils % (auto) 4.8 % (0.0-7.0); Hematocrit 42.2 % (36.0-46.0); Hemoglobin 14.4 g/dL (12.2-16.2); Lymphocytes # (auto) 3.1 10 ^3/uL (0.4-5.4); Lymphocytes % (auto) 42.2 % (10.0-50.0); Mean Corpuscular Hemoglobin 30.2 pg (28.0-32.0); Mean Corpuscular Volume 88.8 fL (80.0-100.0); Monocytes # (auto) 0.6 10 ^3/uL (0-1.3); Monocytes % (auto) 7.8 % (0.0-12.0); Neutrophils # (auto) 3.2 10 ^3/uL (1.6-8.6); Neutrophils % (auto) 43.8 % (37.0-80.0); Nucleated Red Blood Cells % 0.1 %; Platelet Count (auto) 288 10^3/uL (140-450); Red Blood Cells 4.75 10^6/uL (4.0-5.20); Red Cell Distribution Width 13.9 % (11.8-14.3); Total Protein 7.6 g/dL (5.7-8.2); White Blood Cell 7.3 10^3/uL (4.4-10.8)
[2024-08-06 01:00] VITALS: BP 138/55; PULSE 56; RESP 17; TEMP 97.8; O2SAT 93
[2024-08-06 05:00] VITALS: BP 150/63; PULSE 58; RESP 19; TEMP 97.7; O2SAT 94
[2024-08-06 07:06] LABS: Basophils # (auto) 0.1 10 ^3/uL (0-0.2); Basophils % (auto) 1.2 % (0.0-2.0); Eosinophils # (auto) 0.4 10 ^3/uL (0-0.8); Hematocrit 43.2 % (36.0-46.0); Hemoglobin 14.4 g/dL (12.2-16.2); Lymphocytes # (auto) 3.7 10 ^3/uL (0.4-5.4); Lymphocytes % (auto) 53.2 % (10.0-50.0); Mean Corpuscular Hemoglobin 29.9 pg (28.0-32.0); Mean Corpuscular Hgb Conc. 33.4 g/dL (32.0-36.0); Mean Corpuscular Volume 89.6 fL (80.0-100.0); Monocytes # (auto) 0.6 10 ^3/uL (0-1.3); Monocytes % (auto) 8.1 % (0.0-12.0); Neutrophils # (auto) 2.2 10 ^3/uL (1.6-8.6); Neutrophils % (auto) 31.5 % (37.0-80.0); Nucleated Red Blood Cells % 0.1 %; Platelet Count (auto) 292 10^3/uL (140-450); Red Blood Cells 4.82 10^6/uL (4.0-5.20); White Blood Cell 6.9 10^3/uL (4.4-10.8)
[2024-08-06 07:21] LABS: Chloride 105 mmol/L (98-107); Potassium 3.9 mmol/L (3.5-5.1); Sodium 138 mmol/L (136-145)
[2024-08-06 07:22] LABS: Anion Gap 9 (5-15); Calcium 9.9 mg/dL (8.7-10.4); Carbon Dioxide 24 mmol/L (20-31)
[2024-08-06 07:27] LABS: BUN/Creatinine Ratio 32.3 (10.0-20.0); Blood Urea Nitrogen 21 mg/dL (9-23); Glucose 200 mg/dL (74-106)
[2024-08-06 08:00] VITALS: BP 162/68; PULSE 61; RESP 18; TEMP 97.4; O2SAT 92
[2024-08-06] MEDS ORDERED: CEPH250C PO (09:59)
[2024-08-06] MEDS: hydrALAZINE HCL 20 MG/ML VL IV PRN (11:11)
[2024-08-06 11:30] VITALS: BP 167/81; PULSE 70
[2024-08-06 12:00] VITALS: BP 148/59; PULSE 64; RESP 20; TEMP 97.4; O2SAT 96
[2024-08-06 12:13] VITALS: BP_SYST 146; BP_SYST 148; BP_DIAS 57; BP_DIAS 68
== END 2024-08-06 13:12 | disposition home or self-care (01) | DRG 552 ==
LOC: ER 16:21 → TELE 22:33 → TELE-WESTW 22:33 → WEST WING 08-05 19:21
PROVIDERS: ADMIT Internal Medicine; ATTEND Emergency Medicine
DX: M47.812 Spondylosis without myelopathy or radiculopathy, cervical region (principal); I50.32 Chronic diastolic (congestive) heart failure; I13.0 Hypertensive heart and chronic kidney disease with heart failure and stage 1 through stage 4 chronic kidney disease, or unspecified chronic kidney disease; J96.11 Chronic respiratory failure with hypoxia; R07.89 Other chest pain; E86.0 Dehydration; E11.22 Type 2 diabetes mellitus with diabetic chronic kidney disease; E11.65 Type 2 diabetes mellitus with hyperglycemia; E66.9 Obesity, unspecified; N18.9 Chronic kidney disease, unspecified; E11.319 Type 2 diabetes mellitus with unspecified diabetic retinopathy without macular edema; I25.10 Atherosclerotic heart disease of native coronary artery without angina pectoris; M48.02 Spinal stenosis, cervical region; Z86.73 Personal history of transient ischemic attack (TIA), and cerebral infarction without residual deficits; Z88.6 Allergy status to analgesic agent; Z79.899 Other long term (current) drug therapy; Z79.82 Long term (current) use of aspirin; Z95.5 Presence of coronary angioplasty implant and graft; Z82.49 Family history of ischemic heart disease and other diseases of the circulatory system; Z83.3 Family history of diabetes mellitus; Z99.81 Dependence on supplemental oxygen; M75.02 Adhesive capsulitis of left shoulder; Z79.4 Long term (current) use of insulin; Z68.27 Body mass index [BMI] 27.0-27.9, adult
CPT/HCPCS: 36415; 70460; 70491; 71045; 72141; 73030; 80048; 80053; 80307; 81001; 82306; 82607; 82962; 83036; 83735; 83880; 84439; 84443; 84480; 84484; 84550; 85025; 85610; 85652; 85730; 86141; 87086; 93005; 93306; 93971; G0378; J1815; J2405; J3490

== ENCOUNTER 2024-10-22 23:44 | Emergency (ER) | payer MEDICARE, BC ==
[~2024-10-22] VITALS: Ht 152.4 cm; Wt 71.9 kg
[~2024-10-22 23:44] MED LIST changes: +CEPH250C PO
--- NOTE | 2024-10-23 00:16 | ED.PDOC ---
Epistaxis- HPI HPI Comments 79-year-old female presents with a chief complaint of bloody nose. Patient reports that the blood occurred spontaneously and started in the left naris, but then started coming from the right as well. Patient is on Aspirin and Plavix. Patient is on the medication due to having an upcoming surgery for stents in her carotids. No pain at this time is reported by the patient. No other symptoms or modifying factors present at this time. Chief Complaint: Nose Bleed Time Seen by MD: 00:05 Primary Care Provider: Juan Reviewed Notes: Medications, Allergies Allergies: Coded Allergies: Ibuprofen (Verified Allergy, Unknown, 06/20/24) Home Meds Active Scripts Cephalexin (KEFLEX CAPSULE) 250 Mg Cp, 2 CAP PO BID for 5 Days, #28 CAP Prov:BOGDAN FARNSWORTH RESIDENT 08/06/24 Reported Medications Carvedilol (Carvedilol) 6.25 Mg Tab, 6.25 MG PO BID, MG 06/21/24 Baclofen (Baclofen) 10 Mg Tab, 10 MG PO BID, MG 06/21/24 Cholecalciferol (VITAMIN D3) 2,000 Unit Tab, 1 TAB PO DAILY, #30 TAB 5 Refills 10/15/22 Ascorbic Acid (VITAMIN C TABLET) 500 Mg Tb, 1000 MG PO DAILY, #30 TAB 3 Refills 10/15/22 Zinc Gluconate (Zinc) 50 Mg Tab, 50 MG PO DAILY, TAB 10/15/22 [id number] Ethyl Esters ( (VASCAZEN) 1 Gm Cap, 1 CAP PO DAILY 10/15/22 Pantoprazole Sodium Sesquihydr (Pantoprazole Sodium) 40 Mg Tab, 1 TAB PO DAILY 10/15/22 Dapagliflozin Propanediol (Farxiga) 10 Mg Tab, 1 TAB PO DAILY 10/15/22 Aspirin (Aspirin Adult Low Dose) 81 Mg Tab, 1 TAB PO DAILY 10/15/22 Clopidogrel Bisulfate (CLOPIDOGREL) 75 Mg Tab, 1 TAB PO DAILY 10/15/22 Amlodipine Besylate (Amlodipine Besylate) 5 Mg Tab, 1 TAB PO DAILY 10/15/22 Finerenone (Kerendia) 10 Mg Tab, 1 TAB PO DAILY 10/15/22 Losartan Potassium (Losartan Potassium) 50 Mg Tab, 1 TAB PO BID 10/15/22 Montelukast Sodium (MONTELUKAST SODIUM) 10 Mg Tab, 1 TAB PO DAILY 10/15/22 Fenofibrate (FENOFIBRATE) 145 Mg Tab, 1 TAB PO DAILY 10/15/22 Levothyroxine Sodium (Synthroid) 75 Mcg Tab, 1 TAB PO QAM 10/15/22 Insulin Glargine (Basaglar Kwikpen) 100 Unit/Ml Inj, 30 UNITS SC HS 10/15/22 Insulin Lispro (Humalog Kwikpen) 100 Unit/Ml Inj, 15 UNITS SC TIDWMEALS 10/15/22 Travoprost (Travoprost) 0.004 % Philip, 1 DROP EACHEYE HS 10/15/22 Timolol Maleate (Ophth) (Timolol Maleate) 0.5 % Maggie, 1 DROP EACHEYE BID 10/15/22 Information Source: Patient Mode of Arrival: Ambulatory Severity: Bleeding Uncontrolled Timing: Minutes, Came on: Suddenly Duration: Since onset Prehospital treatment: None Location: Both narises Mechanism: Spontaneous onset Use of: Aspirin History of: Nasal bleeding Last Tetanus: Unknown Nose: Normal Nose: Intranasal/Septum: Blood Bleeding Status: Active bleeding Bleeding Amount: Mild Source: Both Associated signs and symptoms: None Past Medical History PAST MEDICAL HISTORY: CKF, CVA, DM, HTN, [place], Thyroid Surgical History: PTCA HVAC SPECIALIST History: No Pertinent HVAC SPECIALIST History Family History Family History: Unknown Social History Smoker: Non-Smoker, Quit Greater Than 1 Year Alcohol: Denies ETOH Use Drugs: Denies Drug Use Lives In: Home Constitutional: denies: chills, diaphoresis, fatigue, fever, malaise, sweats, weakness, others EENTM: reports: nose bleeding; denies: blurred vision, double vision, ear bleeding, ear discharge, ear drainage, ear pain, ear ringing, eye pain, eye redness, hearing loss, mouth pain, mouth swelling, nasal discharge, nose congestion, nose pain, photophobia, tearing, throat pain, throat swelling, voice changes, others Respiratory: denies: cough, hemoptysis, orthopnea, SOB at rest, shortness of breath, SOB with excertion, stridor, wheezing, others Cardiovascular: denies: chest pain, dizzy spells, diaphoresis, Dyspnea on exertion, edema, irregular heart beat, left arm pain, lightheadedness, palpitations, PND, syncope, others Gastrointestinal: denies: abdomen distended, abdominal pain, blood streaked bowels, constipated, diarrhea, dysphagia, difficulty swallowing, hematemesis, melena, nausea, poor appetite, poor fluid intake, rectal bleeding, rectal pain, vomiting, others Genitourinary: denies: abnormal vagina bleeding, burning, dyspareunia, dysuria, flank pain, frequency, hematuria, incontinence, pain, , vagina discharge, urgency, others Neurological: denies: dizziness, fainting, headache, left sided numbness, left sided weakness, numbness, paresthesia, pre-existing deficit, right sided numbness, right sided weakness, seizure, speech problems, tingling, tremors, w eakness, others Musculoskeletal: denies: back pain, gout, joint pain, joint swelling, muscle pain, muscle stiffness, neck pain, others Integumetry: denies: bruises, change in color, change in hair/nails, dryness, laceration, lesions, lumps, rash, wounds, others Allergic/Immunocompromised: denies: Difficulty Healing, Frequent Infections, Hives, Itching, others Hematologic/Lymphatic: denies: anemia, blood clots, easy bleeding, easy bruising, swollen glands, others Endocrine: denies: excessive hunger, excessive sweating, excessive thirst, excessive urination, flushing, intolerance to cold, intolerance to heat, unexplained weight gain, unexplained weight loss, others Psychiatric: denies: anxiety, bipolar disorder, depression, hopeless, panic disorder, schizophrenia, sleepless, suicidal, others All Other Systems: Reviewed and Negative Physical Exam General Appearance: No Apparent Distress, Normal HEENT: Pharynx Normal, TMs Normal, Other (BLEEDING FROM BOTH NARES) Neck: Full Range of Motion, Non-Tender, Normal, Normal Inspection Respiratory: Chest Non-Tender, Lungs Clear, No Accessory Muscle Use, No Respiratory Distress, Normal Breath Sounds Cardiovascular: No Edema, No JVD, No Murmur, No Gallop, Normal Peripheral Pulses, Regular Rate/Rhythm Breast Exam: Deferred Gastrointestinal: No Organomegaly, Non Tender, No Pulsatile Mass, Normal Bowel Sounds, Soft Genitalia: Deferred Pelvic: Deferred Rectal: Deferred Extremities: No calf tenderness, Normal capillary refill, Normal inspection, Normal range of motion, Non-tender, No pedal edema Musculoskeletal : Apperance: Normal Neurologic: Alert, multisensor intelligence officer II-XII nml as Tested, No Motor Deficits, Normal Affect, Normal Mood, No Sensory Deficits Cerebellar Function: Normal Reflexes: Normal Skin: Dry, Normal Color, Warm Lymphatic: No Adenopathy Was a procedure done? Was a procedure done?: No Differential Diagnosis (NSB) Differential Diagnosis: Anterior Nasal Bleed X-Ray, Labs, Meds, VS Vital Signs Date Time Temp Pulse Resp B/P (MAP) Pulse Ox O2 Delivery O2 Flow Rate FiO2 10/23/24 00:01 97.3 66 22 158/78 (104) 94 Time of 1ST Reevaluation: 00:35 Reevaluation 1ST: Unchanged Patient Education/Counseling: Diagnosis, Treatment, Prognosis Family Education/Counseling: Diagnosis, Treatment, Prognosis Departure 1 Departure Time of Disposition: 01:23 (Applied compression and patient's nosebleed stopped. We will discharge patient home with outpatient follow up) Impression: Primary Impression: Epistaxis Disposition: HOME / SELF CARE / HOMELESS Condition: Stable Additional Instructions: Your nosebleed stopped. It is important not to blow your nose for 24 hours. Please follow up with the regular doctor within 1 week. Discharged With: Self Critical Care Note Critical Care Time?: No Stability Stability form required: No I personally scribed for YADIEL WALLACE MD ([email or web address]) on 10/23/24 at 00:16. Electronically submitted by Federico Wheeler ([email or web address]). YADIEL WALLACE MD Oct 23, 2024 00:16
[2024-10-23 02:40] VITALS: BP 135/50; PULSE 60; RESP 18; TEMP 97.5; O2SAT 96
== END 2024-10-23 02:49 | disposition home or self-care (01) ==
LOC: ER 23:44
DX: R04.0 Epistaxis (principal); I10 Essential (primary) hypertension; E11.9 Type 2 diabetes mellitus without complications; I21.9 Acute myocardial infarction, unspecified; Z86.73 Personal history of transient ischemic attack (TIA), and cerebral infarction without residual deficits; Z79.02 Long term (current) use of antithrombotics/antiplatelets; Z79.4 Long term (current) use of insulin; Z79.82 Long term (current) use of aspirin; Z79.84 Long term (current) use of oral hypoglycemic drugs; Z88.6 Allergy status to analgesic agent

== ENCOUNTER 2024-10-23 06:43 | Emergency (ER) | payer MEDICARE, BC ==
[~2024-10-23] VITALS: Ht 152.4 cm; Wt 71.9 kg
[2024-10-23 08:06] VITALS: BP 149/68; PULSE 61; RESP 18; TEMP 97.8; O2SAT 95
--- NOTE | 2024-10-23 08:16 | ED.PDOC ---
Epistaxis- HPI HPI Comments 79 year old presents for left epistaxis. Denies trauma or injury Onset started 6 hours ago Currently on blood thinners for upcoming coronary stent Tried no treatments at home Denies chest pain shortness of breath Chief Complaint: Nose Bleed Time Seen by MD: 07:47 Primary Care Provider: MARK Penny Notes: Nurses Notes, Medications, Allergies Allergies: Coded Allergies: Ibuprofen (Verified Allergy, Unknown, 06/20/24) Home Meds Active Scripts Cephalexin (KEFLEX CAPSULE) 250 Mg Cp, 2 CAP PO BID for 5 Days, #28 CAP Prov:BOGDAN FARNSWORTH RESIDENT 08/06/24 Reported Medications Carvedilol (Carvedilol) 6.25 Mg Tab, 6.25 MG PO BID, MG 06/21/24 Baclofen (Baclofen) 10 Mg Tab, 10 MG PO BID, MG 06/21/24 Cholecalciferol (VITAMIN D3) 2,000 Unit Tab, 1 TAB PO DAILY, #30 TAB 5 Refills 10/15/22 Ascorbic Acid (VITAMIN C TABLET) 500 Mg Tb, 1000 MG PO DAILY, #30 TAB 3 Refills 10/15/22 Zinc Gluconate (Zinc) 50 Mg Tab, 50 MG PO DAILY, TAB 10/15/22 [id number] Ethyl Esters ( (VASCAZEN) 1 Gm Cap, 1 CAP PO DAILY 10/15/22 Pantoprazole Sodium Sesquihydr (Pantoprazole Sodium) 40 Mg Tab, 1 TAB PO DAILY 10/15/22 Dapagliflozin Propanediol (Farxiga) 10 Mg Tab, 1 TAB PO DAILY 10/15/22 Aspirin (Aspirin Adult Low Dose) 81 Mg Tab, 1 TAB PO DAILY 10/15/22 Clopidogrel Bisulfate (CLOPIDOGREL) 75 Mg Tab, 1 TAB PO DAILY 10/15/22 Amlodipine Besylate (Amlodipine Besylate) 5 Mg Tab, 1 TAB PO DAILY 10/15/22 Finerenone (Kerendia) 10 Mg Tab, 1 TAB PO DAILY 10/15/22 Losartan Potassium (Losartan Potassium) 50 Mg Tab, 1 TAB PO BID 10/15/22 Montelukast Sodium (MONTELUKAST SODIUM) 10 Mg Tab, 1 TAB PO DAILY 10/15/22 Fenofibrate (FENOFIBRATE) 145 Mg Tab, 1 TAB PO DAILY 10/15/22 Levothyroxine Sodium (Synthroid) 75 Mcg Tab, 1 TAB PO QAM 10/15/22 Insulin Glargine (Basaglar Kwikpen) 100 Unit/Ml Inj, 30 UNITS SC HS 10/15/22 Insulin Lispro (Humalog Kwikpen) 100 Unit/Ml Inj, 15 UNITS SC TIDWMEALS 10/15/22 Travoprost (Travoprost) 0.004 % Philip, 1 DROP EACHEYE HS 10/15/22 Timolol Maleate (Ophth) (Timolol Maleate) 0.5 % Maggie, 1 DROP EACHEYE BID 10/15/22 Mode of Arrival: Ambulatory Past Medical History PAST MEDICAL HISTORY: CKF, CVA, DM, HTN, [place], Thyroid Surgical History: PTCA SEO TEAM LEAD History: No Pertinent SEO TEAM LEAD History Family History Family History: Unknown Social History Smoker: Non-Smoker, Quit Greater Than 1 Year Alcohol: Denies ETOH Use Drugs: Denies Drug Use Lives In: Home All Other Systems: Reviewed and Negative (Per HPI) Physical Exam General Appearance: No Apparent Distress, Normal HEENT: Normal ENT Inspection, Pharynx Normal, TMs Normal, Other (Left nostril. Unable to visualize source of bleeding. Moderate bleeding. No airway obstruction.) Neck: Full Range of Motion, Non-Tender, Normal, Normal Inspection Respiratory: Chest Non-Tender, Lungs Clear, No Accessory Muscle Use, No Respiratory Distress, Normal Breath Sounds Cardiovascular: No Edema, No JVD, No Murmur, No Gallop, Normal Peripheral Pulses, Regular Rate/Rhythm Breast Exam: Deferred Gastrointestinal: No Organomegaly, Non Tender, No Pulsatile Mass, Normal Bowel Sounds, Soft Genitalia: Deferred Pelvic: Deferred Rectal: Deferred Extremities: No calf tenderness, Normal capillary refill, Normal inspection, Normal range of motion, Non-tender, No pedal edema Musculoskeletal : Apperance: Normal Neurologic: Alert, gas meter checker II-XII nml as Tested, No Motor Deficits, Normal Affect, Normal Mood, No Sensory Deficits Cerebellar Function: Normal Reflexes: Normal Skin: Dry, Normal Color, Warm Lymphatic: No Adenopathy Was a procedure done? Was a procedure done?: Yes Sedation Sedation?: No Nasal Cautery and Pack Indicaton: Anterior epitaxis Hemostasis: Was obtained Location of packing: Left Packing: Expanding sponge Informed consent obtained: Yes Risks/benefits/alt described: Yes Differential Diagnosis (NSB) Differential Diagnosis: Anterior Nasal Bleed, Posterior Nasal Bleed X-Ray, Labs, Meds, VS Vital Signs Date Time Temp Pulse Resp B/P (MAP) Pulse Ox O2 Delivery O2 Flow Rate FiO2 10/23/24 08:06 61 18 95 Room Air 10/23/24 08:06 97.8 61 18 149/68 (95) 95 97.8 10/23/24 07:11 97.8 61 18 149/68 (95) 95 Lab Test 10/23/24 08:39 Range/Units White Blood Count 9.5 4.4-10.8 10^3/uL Red Blood Count 5.09 4.0-5.20 10^6/uL Hemoglobin 14.7 12.2-16.2 g/dL Hematocrit 44.8 36.0-46.0 % Mean Corpuscular Volume 88.0 80.0-100.0 fL Mean Corpuscular Hemoglobin 28.8 28.0-32.0 pg Mean Corpuscular Hemoglobin Concent 32.8 32.0-36.0 g/dL Red Cell Distribution Width 14.8 H 11.8-14.3 % Platelet Count 280 140-450 10^3/uL Mean Platelet Volume 8.6 6.9-10.8 fL Neutrophils (%) (Auto) 50.4 37.0-80.0 % Lymphocytes (%) (Auto) 38.1 10.0-50.0 % Monocytes (%) (Auto) 6.8 0.0-12.0 % Eosinophils (%) (Auto) 2.9 0.0-7.0 % Basophils (%) (Auto) 1.8 0.0-2.0 % Neutrophils # (Auto) 4.8 1.6-8.6 10 ^3/uL Lymphocytes # (Auto) 3.6 0.4-5.4 10 ^3/uL Monocytes # (Auto) 0.6 0-1.3 10 ^3/uL Eosinophils # (Auto) 0.3 0-0.8 10 ^3/uL Basophils # (Auto) 0.2 0-0.2 10 ^3/uL Nucleated Red Blood Cells 0.0 % Prothrombin Time 11.5 9.3-11.8 sec Prothrombin Time INR 1.09 0.9-1.15 Current Medications Medications (Trade) Dose Ordered Sig/Lance Route Start Time Stop Time Status Last Admin Tranexamic Acid 1000 mg/Sodium Chloride 110 ml @ 0 mls/hr ONCE ONCE IV 10/23/24 08:15 10/23/24 08:29 DC 10/23/24 08:35 Acetaminophen (Tylenol Tablet) 650 mg ONCE ONCE PO 10/23/24 09:30 10/23/24 09:28 DC 10/23/24 09:22 X-Ray, Labs, Meds, VS Comment History of nosebleed in the setting of picking her nose and hotter weather No signs of anterior nose bleed Hemoglobin hematocrit within normal limits. INR wnl Discussed avoiding picking nose and supportive care No other signs of bruising/bleeding and no family history of bleeding disorder Supportive care discussed Return precautions discussed Patient instructions What to do during nosebleeds Have your child sit up with his or her head tilting slightly forward. Do not have your child lean back because this can cause gagging coughing or vomiting Pinch the soft part of the nose at the bottom of the nostril for at least 10 minutes Hemostasis obtained prior to discharge. Advised to return in 48 hours sooner if symptoms worsens Time of 1ST Reevaluation: 09:00 Reevaluation 1ST: Improved Patient Education/Counseling: Diagnosis, Treatment Family Education/Counseling: Diagnosis, Treatment Departure 1 Departure Time of Disposition: 09:18 Impression: Primary Impression: Epistaxis Disposition: 01 HOME / SELF CARE / HOMELESS Condition: Stable Discharged With: Self Critical Care Note Critical Care Time?: No Stability Stability form required: No Heart Score Heart Score: Heart Score Response (Comments) Value History N/A 0 EKG N/A 0 Age N/A 0 Risk Factors N/A 0 Troponin N/A 0 Total 0 DERRICK AVITIA NP Oct 23, 2024 08:16
[2024-10-23] MEDS: TRANEXAMIC ACID 1,000 MG in SODIUM CHL 0.9% 100 ML IV ONE (08:35)
[2024-10-23 08:57] LABS: Basophils # (auto) 0.2 10 ^3/uL (0-0.2); Basophils % (auto) 1.8 % (0.0-2.0); Eosinophils # (auto) 0.3 10 ^3/uL (0-0.8); Eosinophils % (auto) 2.9 % (0.0-7.0); Hematocrit 44.8 % (36.0-46.0); Hemoglobin 14.7 g/dL (12.2-16.2); Lymphocytes # (auto) 3.6 10 ^3/uL (0.4-5.4); Lymphocytes % (auto) 38.1 % (10.0-50.0); Mean Corpuscular Hemoglobin 28.8 pg (28.0-32.0); Mean Corpuscular Hgb Conc. 32.8 g/dL (32.0-36.0); Monocytes # (auto) 0.6 10 ^3/uL (0-1.3); Monocytes % (auto) 6.8 % (0.0-12.0); Neutrophils # (auto) 4.8 10 ^3/uL (1.6-8.6); Neutrophils % (auto) 50.4 % (37.0-80.0); Platelet Count (auto) 280 10^3/uL (140-450); Red Blood Cells 5.09 10^6/uL (4.0-5.20); Red Cell Distribution Width 14.8 % (11.8-14.3); White Blood Cell 9.5 10^3/uL (4.4-10.8)
[2024-10-23 09:12] LABS: INR 1.09 (0.9-1.15); Prothrombin Time 11.5 sec (9.3-11.8)
[2024-10-23] MEDS: ACETAMINOPHEN 325 MG TAB PO ONE (09:22)
== END 2024-10-23 09:28 | disposition home or self-care (01) ==
LOC: ER 06:43
DX: R04.0 Epistaxis (principal); I21.9 Acute myocardial infarction, unspecified; I12.9 Hypertensive chronic kidney disease with stage 1 through stage 4 chronic kidney disease, or unspecified chronic kidney disease; E11.22 Type 2 diabetes mellitus with diabetic chronic kidney disease; N18.9 Chronic kidney disease, unspecified; Z86.73 Personal history of transient ischemic attack (TIA), and cerebral infarction without residual deficits; Z98.890 Other specified postprocedural states; Z79.899 Other long term (current) drug therapy; Z79.01 Long term (current) use of anticoagulants; Z88.6 Allergy status to analgesic agent
CPT/HCPCS: 30901; 36415; 85025; 85610; 96365

== ENCOUNTER 2024-10-25 09:40 | Inpatient (IN) | payer MEDICARE, BC ==
[~2024-10-25] VITALS: Ht 152.4 cm; Wt 157.1 kg
--- NOTE | 2024-10-25 11:32 | ED.PDOC ---
History of Present Illness HPI Comments 79 y/o F, Hx of CKF, CVA, DM, HLD, HTN, OH, PTCA, and thyroid disease, presents with spouse for left nare rhino rocket removal inquiry, today. Per spouse, patient was seen at [facility] ED for epistaxis in her left-nare on 10/23/24 and discharged with rhino rocket in place, with instructions to return to the ED, to day, for removal. She states on nare still bleeding amidst temporary cessation of her Plavix and 325ASA blood thinner medications since onset of bleeding. Patient also endorses on noticing "black stools" following her recent bowel movement, this morning. She denies having any additional relevant or pertinent Hx, aside from recent blood thinner medication change from 81ASA to current aforementioned medications. She denies having any weakness, dizziness, lightheadedness, or other associated symptoms or modifiers at this time. Chief Complaint: GI Bleed Time Seen by MD: 11:15 Primary Care Provider: MARK Reviewed Notes: Nurses Notes, Medications, Allergies Allergies: Coded Allergies: Ibuprofen (Verified Allergy, Unknown, 06/20/24) Home Meds Active Scripts Cephalexin (KEFLEX CAPSULE) 250 Mg Cp, 2 CAP PO BID for 5 Days, #28 CAP Prov:BOGDAN FARNSWORTH RESIDENT 08/06/24 Reported Medications Carvedilol (Carvedilol) 6.25 Mg Tab, 6.25 MG PO BID, MG 06/21/24 Baclofen (Baclofen) 10 Mg Tab, 10 MG PO BID, MG 06/21/24 Cholecalciferol (VITAMIN D3) 2,000 Unit Tab, 1 TAB PO DAILY, #30 TAB 5 Refills 10/15/22 Ascorbic Acid (VITAMIN C TABLET) 500 Mg Tb, 1000 MG PO DAILY, #30 TAB 3 Refills 10/15/22 Zinc Gluconate (Zinc) 50 Mg Tab, 50 MG PO DAILY, TAB 10/15/22 [id number] Ethyl Esters ( (VASCAZEN) 1 Gm Cap, 1 CAP PO DAILY 10/15/22 Pantoprazole Sodium Sesquihydr (Pantoprazole Sodium) 40 Mg Tab, 1 TAB PO DAILY 10/15/22 Dapagliflozin Propanediol (Farxiga) 10 Mg Tab, 1 TAB PO DAILY 10/15/22 Aspirin (Aspirin Adult Low Dose) 81 Mg Tab, 1 TAB PO DAILY 10/15/22 Clopidogrel Bisulfate (CLOPIDOGREL) 75 Mg Tab, 1 TAB PO DAILY 10/15/22 Amlodipine Besylate (Amlodipine Besylate) 5 Mg Tab, 1 TAB PO DAILY 10/15/22 Finerenone (Kerendia) 10 Mg Tab, 1 TAB PO DAILY 10/15/22 Losartan Potassium (Losartan Potassium) 50 Mg Tab, 1 TAB PO BID 10/15/22 Montelukast Sodium (MONTELUKAST SODIUM) 10 Mg Tab, 1 TAB PO DAILY 10/15/22 Fenofibrate (FENOFIBRATE) 145 Mg Tab, 1 TAB PO DAILY 10/15/22 Levothyroxine Sodium (Synthroid) 75 Mcg Tab, 1 TAB PO QAM 10/15/22 Insulin Glargine (Basaglar Kwikpen) 100 Unit/Ml Inj, 30 UNITS SC HS 10/15/22 Insulin Lispro (Humalog Kwikpen) 100 Unit/Ml Inj, 15 UNITS SC TIDWMEALS 10/15/22 Travoprost (Travoprost) 0.004 % Philip, 1 DROP EACHEYE HS 10/15/22 Timolol Maleate (Ophth) (Timolol Maleate) 0.5 % Maggie, 1 DROP EACHEYE BID 10/15/22 Information Source: Patient, Spouse Mode of Arrival: Ambulatory Severity: Moderate Timing: Days Duration: Since onset Prehospital treatment: None Past Medical History PAST MEDICAL HISTORY: CKF, CVA, DM, High Lipids, HTN, OH, Thyroid Surgical History: PTCA 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 History Family History Family History: No family hx of Cancer, No family hx of DM, No family hx of HTN, No family hx ofKidney haris, No family hx of Liver harsi, No family hx of Lung haris, No family hx of Stroke, Family hx of heart haris Social History Smoker: Non-Smoker, Quit Greater Than 1 Year Alcohol: Denies ETOH Use Drugs: Denies Drug Use Lives In: Home Constitutional: denies: chills, diaphoresis, fatigue, fever, malaise, sweats, weakness, others EENTM: reports: nose bleeding, others (rhino rocket removal inquiry); denies: blurred vision, double vision, ear bleeding, ear discharge, ear drainage, ear pain, ear ringing, eye pain, eye redness, hearing loss, mouth pain, mouth swelling, nasal discharge, nose congestion, nose pain, photophobia, tearing, throat pain, throat swelling, voice changes Respiratory: denies: cough, hemoptysis, orthopnea, SOB at rest, shortness of breath, SOB with excertion, stridor, wheezing, others Cardiovascular: denies: chest pain, dizzy spells, diaphoresis, Dyspnea on exertion, edema, irregular heart beat, left arm pain, lightheadedness, palpitations, PND, syncope, others Gastrointestinal: reports: others (melena ); denies: abdomen distended, abdominal pain, blood streaked bowels, constipated, diarrhea, dysphagia, difficulty swallowing, hematemesis, melena, nausea, poor appetite, poor fluid intake, rectal bleeding, rectal pain, vomiting Genitourinary: denies: abnormal vagina bleeding, burning, dyspareunia, dysuria, flank pain, frequency, hematuria, incontinence, pain, , vagina discharge, urgency, others Neurological: denies: dizziness, fainting, headache, left sided numbness, left sided weakness, numbness, paresthesia, pre-existing deficit, right sided numbness, right sided weakness, seizure, speech problems, tingling, tremors, weakness, others Musculoskeletal: denies: back pain, gout, joint pain, joint swelling, muscle pain, muscle stiffness, neck pain, others Integumetry: denies: bruises, change in color, change in hair/nails, dryness, laceration, lesions, lumps, rash, wounds, others Allergic/Immunocompromised: denies: Difficulty Healing, Frequent Infections, Hives, Itching, others Hematologic/Lymphatic: denies: anemia, blood clots, easy bleeding, easy bruising, swollen glands, others Endocrine: denies: excessive hunger, excessive sweating, excessive thirst, excessive urination, flushing, intolerance to cold, intolerance to heat, unexplained weight gain, unexplained weight loss, others Psychiatric: denies: anxiety, bipolar disorder, depression, hopeless, panic disorder, schizophrenia, sleepless, suicidal, others All Other Systems: Reviewed and Negative Physical Exam General Appearance: Mild Distress HEENT: Pharynx Normal, TMs Normal, Other (The patient was still having some bleeding from the left naris) Neck: Full Range of Motion, Non-Tender, Normal, Normal Inspection Respiratory: Chest Non-Tender, Lungs Clear, No Accessory Muscle Use, No Respiratory Distress, Normal Breath Sounds Cardiovascular: No Edema, No JVD, No Murmur, No Gallop, Normal Peripheral Pulses, Regular Rate/Rhythm Breast Exam: Deferred Gastrointestinal: No Organomegaly, Non Tender, No Pulsatile Mass, Normal Bowel Sounds, Soft Genitalia: Deferred Pelvic: Deferred Rectal: Deferred Extremities: No calf tenderness, Normal capillary refill, Normal inspection, Normal range of motion, Non-tender, No pedal edema Musculoskeletal : Apperance: Normal 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 Was a procedure done?: No Differential Dx Considerations may include: epistaxis, melena, upper GI bleed, rhino rocket removal, inappropriate blood thinner medication dosage X-Ray, Labs, Meds, VS Vital Signs Date Time Temp Pulse Resp B/P (MAP) Pulse Ox O2 Delivery O2 Flow Rate FiO2 10/25/24 10:02 97.4 71 20 136/40 (72) 96 Lab Test 10/25/24 11:43 Range/Units White Blood Count 9.9 4.4-10.8 10^3/uL Red Blood Count 4.44 4.0-5.20 10^6/uL Hemoglobin 13.3 12.2-16.2 g/dL Hematocrit 39.4 # 36.0-46.0 % Mean Corpuscular Volume 88.8 80.0-100.0 fL Mean Corpuscular Hemoglobin 29.9 28.0-32.0 pg Mean Corpuscular Hemoglobin Concent 33.7 32.0-36.0 g/dL Red Cell Distribution Width 14.5 H 11.8-14.3 % Platelet Count 270 140-450 10^3/uL Mean Platelet Volume 8.5 6.9-10.8 fL Neutrophils (%) (Auto) 53.1 37.0-80.0 % Lymphocytes (%) (Auto) 36.2 10.0-50.0 % Monocytes (%) (Auto) 7.2 0.0-12.0 % Eosinophils (%) (Auto) 2.2 0.0-7.0 % Basophils (%) (Auto) 1.3 0.0-2.0 % Neutrophils # (Auto) 5.2 1.6-8.6 10 ^3/uL Lymphocytes # (Auto) 3.6 0.4-5.4 10 ^3/uL Monocytes # (Auto) 0.7 0-1.3 10 ^3/uL Eosinophils # (Auto) 0.2 0-0.8 10 ^3/uL Basophils # (Auto) 0.1 0-0.2 10 ^3/uL Nucleated Red Blood Cells 0.2 % Prothrombin Time 11.2 9.3-11.8 sec Prothrombin Time INR 1.06 0.9-1.15 Activated Partial Thromboplast Time 31.3 24.5-34.5 SEC Sodium Level 139 136-145 mmol/L Potassium Level 3.8 3.5-5.1 mmol/L Chloride Level 105 98-107 mmol/L Carbon Dioxide Level 26 20-31 mmol/L Anion Gap 8 5-15 Blood Urea Nitrogen 27 H 9-23 mg/dL Creatinine 0.95 0.550-1.02 mg/dL Glomerular Filtration Rate Calc 60 >90 mL/min BUN/Creatinine Ratio 28.4 H 10.0-20.0 Serum Glucose 137 H 74-106 mg/dL Calcium Level 10.2 8.7-10.4 mg/dL Total Bilirubin 0.4 0.2-1.0 mg/dL Aspartate Amino Transferase (AST) 16 13-40 U/L Alanine Aminotransferase (ALT) 11 7-40 U/L Alkaline Phosphatase 92 46-116 U/L Total Protein 7.5 5.7-8.2 g/dL Albumin 4.3 3.2-4.8 g/dL PROCEDURE(s): ABPL - CT AB PEL WO CON-NO ORAL OR IV IMPRESSION: 1. No CT evidence for acute intra-abdominal or intrapelvic process. 2. Scattered colonic diverticula without diverticulitis. 3. Mild hepatomegaly and nodularity liver contour suggestive of cirrhosis. Correlate clinically. 4. Subcentimeter nonobstructing right renal stone. 5. Diffuse atherosclerotic calcification of the aortoiliac arteries. IV Hep-Lock was established The patient was being admitted to the hospitalist There is a concern that the patient was still having a lower GI bleed The patient has a CBC within normal limits The chemistry panel shows hyperglycemia At this time, the patient is being admitted Time of 1ST Reevaluation: 11:35 Reevaluation 1ST: Unchanged Patient Education/Counseling: Diagnosis, Treatment, Prognosis Family Education/Counseling: Diagnosis, Treatment, Prognosis Departure 1 Departure Time of Disposition: 13:08 Impression: Primary Impression: Lower GI bleed Additional Impressions: Epistaxis Acute abdominal pain Disposition: ADMITTED INPATIENT Admit to: Med Surg Condition: Fair Critical Care Note Critical Care Time?: No Stability Stability form required: Yes Unstable for transfer: ED Physician Assesment (Clinical assesment) Heart Score Heart Score: Heart Score Response (Comments) Value History N/A 0 EKG N/A 0 Age N/A 0 Risk Factors N/A 0 Troponin N/A 0 Total 0 I personally scribed for MIN JAVED MD ([email or web address]) on 10/25/24 at 11:32. Electronically submitted by Brijesh Troy ([email or web address]). I personally scribed for MIN JAVED MD ([email or web address]) on 10/25/24 at 12:08. Electronically submitted by Brijesh Troy ([email or web address]). MIN JAVED MD Oct 25, 2024 11:32
--- NOTE | 2024-10-25 11:58 | DVH ---
Procedure: CT CT AB PEL WO CON-NO ORAL OR IV 10/25/2024 11:22 AM Indication: Lower GI bleed Comparison Study: None available at time of dictation. Technique: Axial images were obtained and reformatted in coronal and sagittal planes. All CT scans at this medical facility are performed using dose modulation techniques as appropriate t o a performed exam including the following: Automated exposure control was utilized; adjustment of th e MA and/or KV according to patient size; and use of iterative reconstruction technique. CT Dose: CTDI volume is 15.54 mGy. Dose-length product is 764.56 mGy*cm FINDINGS: Lower Chest: The heart is normal in size. Coronary artery calcification noted. Hepatobiliary: Hepatomegaly. Nodularity liver contour suggestive of cirrhosis. No hepatic steatosis. No intrahepatic or extrahepatic ductal dilatation.. Spleen: Unremarkable. Pancreas: Unremarkable. Adrenal Glands: Unremarkable. tract: The kidneys are normal in size bilaterally without hydronephrosis . A 5 mm nonobstructing stone is seen in the upper pole of the right kidney. The urinary bladder is unremarkable. GI tract: The stomach is grossly normal in appearance. No evidence of small bowel obstruction. Scatte red colonic diverticula are noted without evidence of diverticulitis. Lymphatics: No mesenteric, retroperitoneal or periportal lymphadenopathy. Vasculature: The abdominal aorta is normal in in caliber with diffuse atherosclerotic calcifications noted. Pelvic Organs: Anteverted uterus. A small amount of air is seen in the vaginal cuff. No adnexal les ion is identified. Bones/soft tissues: No acute abnormality. Multilevel degenerative changes of the lumbar spine noted. Other: None. IMPRESSION: 1. No CT evidence for acute intra-abdominal or intrapelvic process. 2. Scattered colonic diverticula without diverticulitis. 3. Mild hepatomegaly and nodularity liver contour suggestive of cirrhosis. Correlate clinically. 4. Subcentimeter nonobstructing right renal stone. 5. Diffuse atherosclerotic calcification of the aortoiliac arteries.
[2024-10-25 12:17] LABS: Basophils # (auto) 0.1 10 ^3/uL (0-0.2); Basophils % (auto) 1.3 % (0.0-2.0); Eosinophils # (auto) 0.2 10 ^3/uL (0-0.8); Eosinophils % (auto) 2.2 % (0.0-7.0); Hematocrit 39.4 % (36.0-46.0); Hemoglobin 13.3 g/dL (12.2-16.2); Lymphocytes # (auto) 3.6 10 ^3/uL (0.4-5.4); Lymphocytes % (auto) 36.2 % (10.0-50.0); Mean Corpuscular Hemoglobin 29.9 pg (28.0-32.0); Mean Corpuscular Hgb Conc. 33.7 g/dL (32.0-36.0); Mean Corpuscular Volume 88.8 fL (80.0-100.0); Monocytes # (auto) 0.7 10 ^3/uL (0-1.3); Monocytes % (auto) 7.2 % (0.0-12.0); Neutrophils # (auto) 5.2 10 ^3/uL (1.6-8.6); Neutrophils % (auto) 53.1 % (37.0-80.0); Nucleated Red Blood Cells % 0.2 %; Platelet Count (auto) 270 10^3/uL (140-450); Red Blood Cells 4.44 10^6/uL (4.0-5.20); Red Cell Distribution Width 14.5 % (11.8-14.3); White Blood Cell 9.9 10^3/uL (4.4-10.8)
[2024-10-25 12:35] LABS: Alanine Aminotransferase 11 U/L (7-40); Albumin 4.3 g/dL (3.2-4.8); Alkaline Phosphatase 92 U/L (46-116); Anion Gap 8 (5-15); BUN/Creatinine Ratio 28.4 (10.0-20.0); Bilirubin, Total 0.4 mg/dL (0.2-1.0); Calcium 10.2 mg/dL (8.7-10.4); Carbon Dioxide 26 mmol/L (20-31); Chloride 105 mmol/L (98-107); Potassium 3.8 mmol/L (3.5-5.1); Sodium 139 mmol/L (136-145); Total Protein 7.5 g/dL (5.7-8.2)
[2024-10-25 12:38] LABS: INR 1.06 (0.9-1.15); Partial Thromboplastin Time 31.3 SEC (24.5-34.5); Prothrombin Time 11.2 sec (9.3-11.8)
[2024-10-25 12:42] LABS: Blood Urea Nitrogen 27 mg/dL (9-23); Glucose 137 mg/dL (74-106)
[2024-10-25 12:44] LABS: Aspartate Aminotransferase 16 U/L (13-40)
[2024-10-25] MEDS ORDERED: ONDANSETRON HCL 4 MG/2 ML VIAL IV PRN (17:00)
[2024-10-25] MEDS ORDERED: DOCUSATE SOD 100 MG CAP PO PRN (17:00)
[2024-10-25] MEDS ORDERED: NITROGLYCERIN 0.4 MG SL TAB SL PRN (17:00)
[2024-10-25] MEDS ORDERED: MORPHINE SULFATE INJ 2 MG/ml SYRG IV PRN (17:00)
--- NOTE | 2024-10-25 17:14 | DVHHP2 ---
History of Present Illness Reason for Visit: gi bleed left nose bleeding History of Present Illness 79 yr old male pmh DM, RI, HTN, CVA, CKD, thyroid cc initially came in for having her nasal trumpet removed from her left nares. Patient was here on October 23, 2024 in [place] with a nasal trumpet and instructed come back but she still has a small amount of bleeding in her there they currently held her Plavix on last admission. But she states she noticed some black stools or blood in his stools so she was told by her family to come in for evaluation. Patient denies any dizziness no chest pain no shortness with the breath. denies any history of cirrhosis, denies any liver issues , She denies any abdominal pain no nausea or vomiting. Patient states she has a colonoscopy two months ago when she do not know the results. When evaluating patient's labs and imaging from the ED CBC was unremarkable glucose was 137 CT scan abdomen pelvis shows diverticulitis cirrhosis which patient denies any history in his right kidney stone nonobstructive. With these findings we will admit and ask for GI evaluate Past Medical History DM, RI, HTN, CVA, CKD, thyroid Past Surgical History Denies surgical history Family History Reviewed, non-contributory to the management of this case. Past Social History The patient lives at home, denies smoking, alcohol or illicit drugs abuse. Review of Systems Constitutional: No: Fever, Chills, Sweats, Weakness, Malaise, Other Eyes: No: Pain, Vision change, Conjunctivae inflammation, Eyelid inflammation, Other, Redness ENT: No: Ear pain, Ear discharge, Nose pain, Nose discharge, Nose congestion, Mouth pain, Mouth swelling, Throat pain, Throat swelling, Other Respiratory: No: Cough, Dry, Shortness of breath, SOB with excertion, Wheezing, Hemoptysis, Pleuritic Pain, Sputum, Wheezing, Other Cardiovascular: No: Chest Pain, Palpitations, Orthopnea, Paroxysmal Noc. Dyspnea, Edema, Lt Headedness, Other Gastrointestinal: Nausea, Vomiting, Melena; No: Abdominal Pain, Diarrhea, Constipation, Hematochezia, Other Genitourinary: No Dysuria, No Frequency, No Incontinence, No Hematuria, No Retention, No Other Musculoskeletal: No: other, neck pain, shoulder pain, arm pain, back pain, hand pain, leg pain, foot pain Skin: No: Rash, Lesions, Jaundice, Bruising, Other Neurological: No: Weakness, Numbness, Incoordination, Change in speech, Confusion, Seizures, Other Allergies: Coded Allergies: Ibuprofen (Verified Allergy, Unknown, 06/20/24) Exam Vital Signs Vital Signs Date Time Temp Pulse Resp B/P (MAP) Pulse Ox O2 Delivery O2 Flow Rate FiO2 10/25/24 10:02 97.4 71 20 136/40 (72) 96 General Appearance: Alert, Oriented X3, Cooperative, No acute distress HEENT: Atraumatic, PERRLA, EOMI, Mucous membr. moist/pink, Other (Left nares with nasal trumpet in place) Respiratory: Clear to auscultation, Normal air movement Cardiovascular: Regular rate, Normal S1, Normal S2, No murmurs Abdominal: Normal bowel sounds, Soft, No tenderness, No hepatospenomegaly, No masses, Other (Rectal exam deferred) Extremities: No clubbing, No cyanosis, No edema, Normal pulses, No tenderness/swelling Skin: No rashes, No breakdown, No significant lesion Neuro: Normal gait, Normal speech, Strength at 5/5 X4 ext, Normal tone, Sensation intact, Cranial nerves 3-12 NL Psych/Mental Status: Mental status NL, Mood NL Labs/Xrays CT scan abdomen pelvis shows diverticulitis cirrhosis and right kidney stone nonobstructing I reviewed labs, imaging CT scan abdomen pelvis, EKG and all diagnostic studies on this patient from ED records and the medical chart Labs Test 10/25/24 11:43 Range/Units White Blood Count 9.9 4.4-10.8 10^3/uL Red Blood Count 4.44 4.0-5.20 10^6/uL Hemoglobin 13.3 12.2-16.2 g/dL Hematocrit 39.4 # 36.0-46.0 % Mean Corpuscular Volume 88.8 80.0-100.0 fL Mean Corpuscular Hemoglobin 29.9 28.0-32.0 pg Mean Corpuscular Hemoglobin Concent 33.7 32.0-36.0 g/dL Red Cell Distribution Width 14.5 H 11.8-14.3 % Platelet Count 270 140-450 10^3/uL Mean Platelet Volume 8.5 6.9-10.8 fL Neutrophils (%) (Auto) 53.1 37.0-80.0 % Lymphocytes (%) (Auto) 36.2 10.0-50.0 % Monocytes (%) (Auto) 7.2 0.0-12.0 % Eosinophils (%) (Auto) 2.2 0.0-7.0 % Basophils (%) (Auto) 1.3 0.0-2.0 % Neutrophils # (Auto) 5.2 1.6-8.6 10 ^3/uL Lymphocytes # (Auto) 3.6 0.4-5.4 10 ^3/uL Monocytes # (Auto) 0.7 0-1.3 10 ^3/uL Eosinophils # (Auto) 0.2 0-0.8 10 ^3/uL Basophils # (Auto) 0.1 0-0.2 10 ^3/uL Nucleated Red Blood Cells 0.2 % Prothrombin Time 11.2 9.3-11.8 sec Prothrombin Time INR 1.06 0.9-1.15 Activated Partial Thromboplast Time 31.3 24.5-34.5 SEC Sodium Level 139 136-145 mmol/L Potassium Level 3.8 3.5-5.1 mmol/L Chloride Level 105 98-107 mmol/L Carbon Dioxide Level 26 20-31 mmol/L Anion Gap 8 5-15 Blood Urea Nitrogen 27 H 9-23 mg/dL Creatinine 0.95 0.550-1.02 mg/dL Glomerular Filtration Rate Calc 60 >90 mL/min BUN/Creatinine Ratio 28.4 H 10.0-20.0 Serum Glucose 137 H 74-106 mg/dL Calcium Level 10.2 8.7-10.4 mg/dL Total Bilirubin 0.4 0.2-1.0 mg/dL Aspartate Amino Transferase (AST) 16 13-40 U/L Alanine Aminotransferase (ALT) 11 7-40 U/L Alkaline Phosphatase 92 46-116 U/L Total Protein 7.5 5.7-8.2 g/dL Albumin 4.3 3.2-4.8 g/dL Assessment/Plan Assessment/Plan acute upper gi bleed with hx of ulcer with stable hemoglobin ct scan found diverticular vs ? cirrhosis ordered abd us fu results ordered hepatitis panel ordered gi consult fu recs hold asa and plavix for now ordered inr no dvt ppx in setting of bleeding ordered protonix bid acute left epistaxis cont nasal trumpet for now with bleeding ordered inr fu results acute cirrhosis of liver found on ct scan pt denies any hx ordered hepatitis panel ordered us fu results ordered gi consult fu recs chronic problems with continuation of medication dm ISS with sliding scale hld htn thyroid disease ordered TSH fen/ppx clr liquid ivf for now protonix scd plan admit to medicine GI consult fu results Plan discussed with: Patient My Orders Orders - KARINA SKY DNP Procedure Category Date Status Time Amlodipine Tablet PHA 10/26/24 Logged (Norvasc Tablet) 10:00 Ascorbic Acid Tablet PHA 10/26/24 Logged (Vitamin C Tablet) 10:00 Baclofen Tablet PHA 10/25/24 Logged (Liorisal Tablet) 22:00 Losartan Tablet PHA 10/25/24 Logged (Cozaar Tablet) 22:00 Montelukast Tablet PHA 10/26/24 Logged (Singulair Tablet) 10:00 Timolol 0.5% Opth PHA 10/25/24 Logged Soln (Timoptic 0.5%) 22:00 (Nf) Carvedilol PHA 10/25/24 Logged 22:00 (Nf) Cholecalciferol PHA 10/26/24 Logged (Vitamin D3) 10:00 (Nf) Dapagliflozin PHA 10/26/24 Logged Propanediol (Farxiga) 10:00 (Nf) Fenofibrate PHA 10/26/24 Logged 10:00 (Nf) Finerenone PHA 10/26/24 Logged (Kerendia) 10:00 (Nf) Levothyroxine PHA 10/26/24 Logged Sodium (Synthroid) 07:00 (Nf) Letpo-4-Ytfv PHA 10/26/24 Logged Ethyl Esters ( (Vas 10:00 (Nf) Travoprost PHA 10/25/24 Logged 22:00 (Nf) Zinc Gluconate PHA 10/26/24 Logged (Zinc) 10:00 Pantoprazole PHA 10/25/24 Logged (Protonix) 17:00 Pantoprazole PHA 10/25/24 Logged (Protonix) 22:00 * Gi [facility] Product Manager [employer] CONS 10/25/24 Transmitted 16:51 Admit ADMIT 10/25/24 Transmitted 16:51 Allergies PONCE 10/25/24 In Process 16:51 Code Status CODE 10/25/24 Transmitted 16:51 Sodium Chloride 0.9% PHA 10/25/24 Logged 17:00 Ondansetron Hcl [facility] 10/25/24 Logged (Zofran) 17:00 Docusate Sodium [facility] 10/25/24 Logged Capsule (Colace 17:00 Fall Risk Precautions [facility] 10/25/[address] 16:51 Complete Blood Count LAB 10/26/24 Verified 04:00 Comprehensive LAB 10/26/24 Verified Metabolic Panel 04:00 Condition: Stable [facility] 10/25/24 In Process 16:51 Clear Liq Diet DIET 10/25/24 Transmitted Dinner BRP [facility] 10/25/24 In Process 16:51 Morphine Sulfate [facility] 10/25/24 Logged Injection 17:00 Sequential [facility] 10/25/24 In Process Compression Device Nitroglycerin [facility] 10/25/24 Logged Sublingual (Ntrostat 17:00 Stat Ekg For Chest [facility] 10/25/24 In Process Pain 16:51 Notify Md Of Changes [facility] 10/25/24 In Process From Base 16:51 Director Center For [facility] 10/25/24 In Process 24 Hours 16:51 Emergency Dysrhythmia [facility] 10/25/24 In Process Protocol 16:51 Rhythm Strips Once [facility] 10/25/24 In Process Every Shift 16:51 Oxygen By Nasal RT 10/25/24 Transmitted Cannula 16:51 Date of Service: Oct 25, 2024 Billing Provider: KARINA SKY DNP Common Visit Codes: 74703-[id number] INP/OBS CARE (HIGH) KARINA SKY DNP Oct 25, 2024 17:14
--- NOTE | 2024-10-25 18:05 | DVH ---
Procedure: US ABDOMEN LIMITED Study Date and Requested Time: 10/25/2024 05:19 PM History: eval cirrhosis of liver found on ct scan Comparison: US LIVER on DOS: 06/21/24 Technique: Multiple high resolution rivera-scale images obtained of the right upper quadrant of the abd omen with color Doppler for evaluation of blood flow and vascularity as indicated. Findings: Liver normal in size, measuring 17 cm in length, with increased echogenicity and coarse echotexture. No evidence of focal hepatic lesions, intrahepatic or extrahepatic ductal dilatation. Common bile william t measures 0.3 cm in diameter. Gallbladder unremarkable with no evidence of abnormal wall thickening, gallstones, biliary sludge, or pericholecystic fluid. Negative sonographic Spear's sign. Pancreatic tail is obscured by bowel gas with the visualized pancreas unremarkable. Right kidney measures 9.6 cm in length, with normal contours, echotexture, and cortical thickness. No evidence of hydronephrosis, calculi, cystic or solid renal lesions. Partially visualized inferior vena cava unremarkable. Impression: Mild hepatomegaly with increased hepatic echogenicity which may be from hepatic disease/ hepatic stea tosis. Pancreatic tail is obscured by bowel gas with the visualized pancreas unremarkable.
[2024-10-25] MEDS: PANTOPRAZOLE 40 MG/10 ML VIAL INJ IV ONE (18:30)
[2024-10-25] MEDS: SODIUM CHLORIDE 0.9% 1,000 ML IV SCH (18:35)
[2024-10-25] MEDS: BACLOFEN 10 MG TAB PO SCH (21:59)
[2024-10-25] MEDS: TRAVOPROST EACHEYE SCH (22:00)
[2024-10-25] MEDS: CARVEDILOL 3.125 MG TAB PO SCH (22:00)
[2024-10-25] MEDS: TIMOLOL MAL 0.5% OPTH(EYE) SOL 5ML EACHEYE SCH (22:00)
[2024-10-25] MEDS: LOSARTAN POTASSIUM 50 MG TAB PO SCH (22:02)
[2024-10-25 22:15] VITALS: BP 141/51; PULSE 66; RESP 18; TEMP 98.2; O2SAT 93
[2024-10-26] VITALS (8 sets, daily range): BP systolic 105–152; BP diastolic 44–75; PULSE 58–68; RESP 17–19; TEMP 97.6–98.3; O2SAT 92–100
[2024-10-26] MEDS: HYDROcodone-ACET 5/325MG TAB PO PRN (02:26)
[2024-10-26] MEDS: LEVOTHYROXINE SODIUM 50 MCG TAB PO SCH (06:21)
[2024-10-26 07:44] LABS: Basophils # (auto) 0.1 10 ^3/uL (0-0.2); Basophils % (auto) 1.9 % (0.0-2.0); Eosinophils # (auto) 0.3 10 ^3/uL (0-0.8); Eosinophils % (auto) 3.3 % (0.0-7.0); Hematocrit 35.8 % (36.0-46.0); Lymphocytes # (auto) 3.3 10 ^3/uL (0.4-5.4); Lymphocytes % (auto) 42.5 % (10.0-50.0); Mean Corpuscular Hemoglobin 29.5 pg (28.0-32.0); Mean Corpuscular Hgb Conc. 33.5 g/dL (32.0-36.0); Mean Corpuscular Volume 88.1 fL (80.0-100.0); Monocytes # (auto) 0.6 10 ^3/uL (0-1.3); Neutrophils # (auto) 3.5 10 ^3/uL (1.6-8.6); Neutrophils % (auto) 44.3 % (37.0-80.0); Platelet Count (auto) 241 10^3/uL (140-450); Red Blood Cells 4.06 10^6/uL (4.0-5.20); White Blood Cell 7.9 10^3/uL (4.4-10.8)
[2024-10-26 08:18] LABS: Albumin 3.9 g/dL (3.2-4.8); Alkaline Phosphatase 82 U/L (46-116); Anion Gap 7 (5-15); BUN/Creatinine Ratio 26.9 (10.0-20.0); Bilirubin, Total 0.6 mg/dL (0.2-1.0); Calcium 9.8 mg/dL (8.7-10.4); Carbon Dioxide 24 mmol/L (20-31); Chloride 108 mmol/L (98-107); Potassium 3.9 mmol/L (3.5-5.1); Sodium 139 mmol/L (136-145); Total Protein 6.7 g/dL (5.7-8.2)
[2024-10-26 08:19] LABS: Alanine Aminotransferase 9 U/L (7-40); Aspartate Aminotransferase 13 U/L (13-40); Blood Urea Nitrogen 25 mg/dL (9-23); Glucose 145 mg/dL (74-106)
[2024-10-26] MEDS: PANTOPRAZOLE 40 MG/10 ML VIAL INJ IV SCH (09:13)
[2024-10-26] MEDS: CHOLECALCIFEROL (VITD3) 1,000UNIT=25mCg TAB PO SCH (09:14)
[2024-10-26] MEDS: ZINC SULFATE 220mg CAP or TAB PO SCH (09:15)
[2024-10-26] MEDS: MONTELUKAST SODIUM 10 MG TAB PO SCH (09:15)
[2024-10-26] MEDS: ASCORBIC ACID 500 MG TAB PO SCH (09:16)
[2024-10-26] MEDS: amLODIPine BESYLATE 5 MG TAB PO SCH (09:18)
[2024-10-26 09:29] LABS: Bilirubin,Neonatal Direct 0.2 mg/dL (0.0-0.3)
[2024-10-26] MEDS: OMEGA ACID ETHYL ESTERS PO SCH (10:00)
[2024-10-26] MEDS: KERENDIA 10 MG PO SCH (10:00)
[2024-10-26] MEDS: Fenofibrate 145MG PO SCH (10:00)
[2024-10-26 10:11] LABS: Opiate Scree,Urine Neg (NEGATIVE)
[2024-10-26 10:20] LABS: Amphetamine Screen, Urine Neg (NEGATIVE); Barbiturate Scree,Urine Neg (NEGATIVE); Benzodiazephine Screen, Urine Neg (NEGATIVE); Cannabinoid Screen, Urine Neg (NEGATIVE); Cocaine Screen, Urine Neg (NEGATIVE); Phencyclidine Screen, Urine Neg (NEGATIVE)
--- NOTE | 2024-10-26 12:12 | DVHINCON2 ---
GI Consult Consult Note GI consult note Date of Consultation:10/26/2024 Chief Complaint:GIB Referring Physician:Rojelio ALVARADO H&P: 79yo female Hx of CKF, CVA, DM, HLD, HTN, AL, PTCA, and thyroid disease, presented to ER for epistaxis, sp L nare rhino rocket Pt has N/V, no hematemesis. Pt has melena. No red bld in stool. pt stopped plavix and asa 10/23/2024. Pt started on these meds by film spooler 2 mos, due to 80%blockage in carotids SP EGd 2 yrs ago SP colonoscopy 6mos agp, 1 polyp removed Pt denies etoh use. No hx hepatitis Past Medical History: CKF, CVA, DM, High Lipids, HTN, AL, Thyroid Past Surgical History: PTCA Social History: Smoker: Non-Smoker, Quit Greater Than 1 Year Alcohol: Denies ETOH Use Drugs: Denies Drug Use Lives In: Home Family History: noncontributory Review of Systems: Constitutional: no fever, chill, weight loss HEENT: L nostril mild red bld Heart: no chest pain, no chest pressure Lung: no cough, no dyspnea with exertion Abdomen: see HPI Physical exam: General: NAD, AAOX3 Chest: lung arenas clear to auscultation Heart: RRR, no murmur Abdomen: non-distended, no tenderness to palpation, +BS, no hepatosplenomegaly Labs: Labs Test 10/26/24 09:30 10/26/24 07:12 10/25/24 11:43 Range/Units Urine Opiates Screen Neg NEGATIVE Urine Fentanyl Screen Neg NEGATIVE Urine Barbiturates Screen Neg NEGATIVE Urine Phencyclidine Screen Neg NEGATIVE Urine Amphetamines Screen Neg NEGATIVE Urine Benzodiazepines Screen Neg NEGATIVE Urine Cocaine Screen Neg NEGATIVE Urine Cannabinoids Screen Neg NEGATIVE White Blood Count 7.9 4.4-10.8 10^3/uL Red Blood Count 4.06 4.0-5.20 10^6/uL Hemoglobin 12.0 L 12.2-16.2 g/dL Hematocrit 35.8 L 36.0-46.0 % Mean Corpuscular Volume 88.1 80.0-100.0 fL Mean Corpuscular Hemoglobin 29.5 28.0-32.0 pg Mean Corpuscular Hemoglobin Concent 33.5 32.0-36.0 g/dL Red Cell Distribution Width 14.0 11.8-14.3 % Platelet Count 241 140-450 10^3/uL Mean Platelet Volume 8.4 6.9-10.8 fL Neutrophils (%) (Auto) 44.3 37.0-80.0 % Lymphocytes (%) (Auto) 42.5 10.0-50.0 % Monocytes (%) (Auto) 8.0 0.0-12.0 % Eosinophils (%) (Auto) 3.3 0.0-7.0 % Basophils (%) (Auto) 1.9 0.0-2.0 % Neutrophils # (Auto) 3.5 1.6-8.6 10 ^3/uL Lymphocytes # (Auto) 3.3 0.4-5.4 10 ^3/uL Monocytes # (Auto) 0.6 0-1.3 10 ^3/uL Eosinophils # (Auto) 0.3 0-0.8 10 ^3/uL Basophils # (Auto) 0.1 0-0.2 10 ^3/uL Nucleated Red Blood Cells 0.0 % Sodium Level 139 136-145 mmol/L Potassium Level 3.9 3.5-5.1 mmol/L Chloride Level 108 H 98-107 mmol/L Carbon Dioxide Level 24 20-31 mmol/L Anion Gap 7 5-15 Blood Urea Nitrogen 25 H 9-23 mg/dL Creatinine 0.93 0.550-1.02 mg/dL Glomerular Filtration Rate Calc 62 >90 mL/min BUN/Creatinine Ratio 26.9 H 10.0-20.0 Serum Glucose 145 H 74-106 mg/dL Hemoglobin A1c 7.1 H <5.7 % A1C Calcium Level 9.8 8.7-10.4 mg/dL Magnesium Level 2.0 1.6-2.6 mg/dL Total Bilirubin 0.6 0.2-1.0 mg/dL Direct Bilirubin 0.2 0.0-0.3 mg/dL Aspartate Amino Transferase (AST) 13 13-40 U/L Alanine Aminotransferase (ALT) 9 7-40 U/L Alkaline Phosphatase 82 46-116 U/L Total Protein 6.7 5.7-8.2 g/dL Albumin 3.9 3.2-4.8 g/dL Vitamin B12 Level 496 211-911 pg/mL Vitamin D 25-Hydroxy 32.2 30.0-100 ng/mL Thyroid Stimulating Hormone (TSH) 6.14 H 0.55-4.78 uIU/mL Prothrombin Time 11.2 9.3-11.8 sec Prothrombin Time INR 1.06 0.9-1.15 Activated Partial Thromboplast Time 31.3 24.5-34.5 SEC Imaging: CT abd pelvis IMPRESSION: 1. No CT evidence for acute intra-abdominal or intrapelvic process. 2. Scattered colonic diverticula without diverticulitis. 3. Mild hepatomegaly and nodularity liver contour suggestive of cirrhosis. Correlate clinically. 4. Subcentimeter nonobstructing right renal stone. 5. Diffuse atherosclerotic calcification of the aortoiliac arteries. ABD US Impression: Mild hepatomegaly with increased hepatic echogenicity which may be from hepatic disease/ hepatic steatosis. Pancreatic tail is obscured by bowel gas with the visualized pancreas unremarkable. Assessment: GIB acute epistaxis possible liver cirrhosis anemia Plan: discussed c Dr Maira Ramirez - Pt will be scheduled for an EGD today 10/26/2024. Pt was informed of the risks (bleeding, infection, perforation, reaction to sedation medications and cardiopulmonary arrest) and benefit and is agreeable to undergo the procedures. hep panel pending Discussed plan c pt, at bedside and RN Date of Service: Oct 26, 2024 Billing Provider: AMADEO BELLAMY Common Visit Codes: CONSULT ONLY Consultation Codes: [id number] CONSULT <60MIN AMADEO BELLAMY Oct 26, 2024 12:12
[2024-10-26] MEDS ORDERED: MIDAZOLAM HCL 2MG/2ML 2ml VIAL (1mg/ml) ONE (13:03)
[2024-10-26] MEDS ORDERED: PROPOFOL 10 MG/ML 20 ML IV ONE (13:22)
[2024-10-26] MEDS ORDERED: ONDANSETRON HCL 4 MG/2 ML VIAL ONE (13:22)
--- NOTE | 2024-10-26 13:25 | DVHOP2 ---
Operative Report DATE OF OPERATION: 10/26/24 PROCEDURE: Upper Endoscopy with biopsy. PREOPERATIVE INDICATION: The patient is a 79 -year-old female undergoing endoscopy for history of anemia and GI bleed POSTOPERATIVE DIAGNOSES: 1. Small 1-2 cm sliding-type hiatal hernia with slightly irregular squamocolumnar junction 2. Mild gastritis otherwise normal examination up to the 2nd and 3rd part of the duodenum with no fresh or old blood in the upper GI tract 3. No active bleeding was seen in the posterior pharynx from the nosebleed PROCEDURE PERFORMED BY: Moreno Ramirez GI NURSE: Nichol SCOPE: Olympus videoendoscope. ASA CLASS: 3. PREOPERATIVE MEDICATIONS: Mac Dr. Neva bonner PROCEDURE IN DETAIL: After obtaining an informed consent, the patient was placed on left lateral decubitus position. The patient was then sedated with the above medications. A bite block was placed between her teeth. The endoscope was then passed through the oropharynx, into the esophagus, and through the stomach and pylorus up to the second and third part of the duodenum. The endoscope was then withdrawn. The 2nd and 3rd part of the duodenum and the duodenal bulb were normal. There was good bile drainage. Duodenal biopsies were obtained. The pre-pyloric area antrum and body showed minimal gastritis. On retroflexion the fundus cardia and angularis were normal. Gastric biopsies were obtained. There was no fresh or old blood in the upper GI tract or in the posterior pharynx. Patient had a 1-2 cm sliding-type hiatal hernia with slightly irregular squamocolumnar junction. The remaining distal and proximal esophagus and oropharynx were unremarkable The patient tolerated the procedure well without difficulty. COMPLICATIONS : None SPECIMENS: Duodenal biopsies Gastric biopsies DISPOSITION: Transfer back to the floor Stable PLAN: 1. Await for biopsy result 2. Will place pt on Protonix 40 mg p.o. daily 3. Resume clear liquid diet advance as tolerated 4. Continue supportive care for her nosebleed 5. DC aspirin NSAIDs and hold blood thinners at this time 6. If she continues to have a low-speed the can try to give her a unit of FFP 7. Patient needs to follow up with ENT specialist as an outpatient MORENO RAMIREZ MD Oct 26, 2024 13:25
[2024-10-26] MEDS: ONDANSETRON HCL 4 MG/2 ML VIAL IV ONE (13:45)
[2024-10-26 16:36] LABS: Hematocrit 37.1 % (36.0-46.0); Hemoglobin 12.3 g/dL (12.2-16.2)
--- NOTE | 2024-10-26 20:29 | DVHPNRES ---
Progress Note Date Seen: Oct 26, 2024 Resident Creating Document: PRIMO SPRAGUE RESIDENT Medical Necessity Reason Pt with a Central, PICC or Fol: No Subjective Review of Systems 79-year-old male with past medical history of type 2 diabetes, myocardial infarction, hypertension, cerebrovascular accident, chronic kidney disease, thyroid disease who came to the emergency department with a chief complaint of nasal bleeding that happened on October 23. The patient was evaluated in the emergency department and discharged after control dizziness or bleeding with a nasal trumpet. The patient came back 2 days after on October 25 for the same reason. After nasal tremor removal the bleeding continue for which the patient was admitted. Per , he reports the patient was on aspirin 325 mg and Plavix 75 mg that was recommended by her online retailer started on these meds by online retailer 2 months due to 80%blockage in carotids. That was stopped recently after the 1st event. Patient was examined at bedside, she reports no acute symptoms but some nausea. During today's hospitalization the patient starts bleeding from the right naris after which she had an vomiting episode. Gastroenterology performed an endoscopy today, that showed small 1-2 cm sliding- type hiatal hernia with slightly irregular squamocolumnar junction , mild gastritis otherwise normal examination up to the 2nd and 3rd part of the duodenum with no fresh or old blood in the upper GI tract ,no active bleeding was seen in the posterior pharynx from the nosebleed, After the consultation they recommend await for biopsy results, continue on Protonix 40 mg p.o. daily and resume clear liquid diet and advanced as tolerated, if bleeding continue then we can try to give her a unit of FFP. Patient will need to follow-up with the ENT specialist as an outpatient Mild hepatomegaly with increased hepatic echogenicity which may be from hepatic disease/ hepatic steatosis was noted on liver ultrasound, per patient she was told by family member that she had hepatitis-C in the past. Constitutional: No: Fever, Chills, Sweats, Weakness, Malaise, Other Eyes: No: Pain, Vision change, Conjunctivae inflammation, Eyelid inflammation, Other, Redness ENT: Yes: Left nose bleeding,currently resolved No: Ear pain, Ear discharge, Nose pain, Nose discharge, Nose congestion, Mouth pain, Mouth swelling, Throat pain, Throat swelling, Other Respiratory: No Wheezing, Hemoptysis, Pleuritic Pain, Sputum, Wheezing, Other Cardiovascular: No: Chest Pain, Palpitations, Orthopnea, Paroxysmal Noc. Dyspnea, Edema, Lt Headedness, Other Gastrointestinal: No: Nausea, Vomiting, Abdominal Pain, Diarrhea, Constipation, Melena, Hematochezia, Other Musculoskeletal: No: other, neck pain, shoulder pain, arm pain, back pain, hand pain, leg pain, foot pain Neurological:; No: Weakness, Numbness, Incoordination, Change in speech, Confusion, Seizures Patient reports: Feels better Changes from previous H/P or p: Changes Objective vital signs Vital Sign Date Time Temp Pulse Resp B/P (MAP) Pulse Ox O2 Delivery O2 Flow Rate FiO2 10/26/24 16:49 98.3 62 17 120/75 (90) 93 98.3 10/26/24 13:24 Mask 6.0 10/26/24 13:24 100 Total Intake and Output 10/25/24 10/25/24 10/26/24 14:59 22:59 06:59 Intake Total 300 ml Balance 300 ml medications Current Medications Medications Dose Ordered Sig/Lance Route Start Time Stop Time Status Last Admin Dose Admin Amlodipine Besylate 5 mg DAILY PO 10/26/24 10:00 10/26/24 09:18 5 MG Ascorbic Acid 1,000 mg DAILY PO 10/26/24 10:00 10/26/24 09:16 1,000 MG Baclofen 10 mg BID PO 10/25/24 22:00 10/26/24 09:15 10 MG Losartan Potassium 50 mg BID PO 10/25/24 22:00 10/26/24 09:18 50 MG Montelukast Sodium 10 mg DAILY PO 10/26/24 10:00 10/26/24 09:15 10 MG Timolol Maleate 1 drop BID EACHEYE 10/25/24 22:00 Carvedilol 6.25 mg BID PO 10/25/24 22:00 10/26/24 09:19 6.25 MG Cholecalciferol 2,000 unit DAILY PO 10/26/24 10:00 10/26/24 09:14 2,000 UNIT Patient Own Medication 1 tab DAILY PO 10/26/24 10:00 Patient Own Medication 1 tab DAILY PO 10/26/24 10:00 Patient Own Medication 1 tab DAILY PO 10/26/24 10:00 Levothyroxine Sodium 75 mcg QAM PO 10/26/24 07:00 10/26/24 06:21 75 MCG Patient Own Medication 1 cap DAILY PO 10/26/24 10:00 Patient Own Medication 1 drop HS EACHEYE 10/25/24 22:00 Zinc Sulfate 220 mg DAILY PO 10/26/24 10:00 10/26/24 09:15 220 MG Pantoprazole Sodium 40 mg BID IV 10/26/24 10:00 10/26/24 09:13 40 MG Sodium Chloride 1,000 ml @ 100 mls/hr Q10H IV 10/25/24 17:00 10/25/24 18:35 100 MLS/HR Ondansetron HCl 4 mg Q4HP PRN IV 10/25/24 17:00 Docusate Sodium 100 mg BIDPRN PRN PO 10/25/24 17:00 Morphine Sulfate 2 mg Q4HPRN PRN IV 10/25/24 17:00 Nitroglycerin 0.4 mg Q5MINP PRN SL 10/25/24 17:00 Acetaminophen/ Hydrocodone Bitart 1 tab Q6HPRN PRN PO 10/26/24 02:15 10/26/24 02:26 1 TAB Examination Examination General Appearance: Alert, Oriented X3, Cooperative, No acute distress Respiratory: Clear to auscultation, Normal air movement Cardiovascular: Regular rate, Normal S1, Normal S2 Abdominal: Normal bowel sounds Extremities: No cyanosis, No edema, Normal pulses, No tenderness/swelling Skin: No rashes, No breakdown Neuro: Normal gait, Normal speech, Strength at 5/5 X4 ext, Normal tone, Sensation intact Psych/Mental Status: Mental status NL, Mood NL laboratory and microbiology Laboratory Tests 10/26/24 16:19 10/26/24 07:12 Test 10/26/24 07:12 Range/Units Serum Glucose 145 H 74-106 mg/dL Problem List/Assessment/Plan Problem List/Assessment/Plan #Acute upper GI bleeding likely due to gastropathy #Acute epistaxis likely due to medication induced -Await for biopsy result - Protonix 40 mg p.o. daily - advance diet as tolerated - follow up with ENT specialist as an outpatient #History of liver cirrhosis secondary to previous hepatitis C infection #Hepatic steatosis -hepatitis-C antibody -hepatitis-B antigen #Normocytic normochromic anemia, hemoglobin 12.3 -monitor #Possible primary hypothyroidism -TSH levels elevated -free T3-T4 , pending #Type 2 diabetes, hemoglobin A1c 7.1 -lifestyle modification and dietary habits counseling #Type 1 obesity -lifestyle modification and dietary habits counseling Case discussed with Dr. Sullivan Code status: Full code Goals of care discussed with the patient for 38 minutes. Plan discussed with: Patient, Spouse My Orders My Orders Orders - PRIMO SPRAGUE RESIDENT Procedure Category Date Status Time Covid19 Antigen Yue LAB 10/26/24 Logged Urinalysis LAB 10/26/24 Logged 14:18 Rapid Influenza A&B LAB 10/26/24 Logged 08:17 Date of Service: Oct 26, 2024 Billing Provider: SEBASTIEN SULLIVAN MD Common Visit Codes: [id number] INP/OBS CARE(MOD) PRIMO SPRAGUE RESIDENT Oct 26, 2024 20:29 SEBASTIEN SULLIVAN MD Oct 27, 2024 10:39
[2024-10-26 22:15] LABS: Free T3 2.73 pg/mL (2.3-4.2); Free T4 (Free Thyroxine) 1.33 ng/dL (0.89-1.76)
[2024-10-27 01:00] VITALS: BP_SYST 119; BP_SYST 135; BP_DIAS 50; BP_DIAS 70; PULSE 77; PULSE 88; RESP 18; TEMP 97.8; O2SAT 93
[2024-10-27 03:02] LABS: Rapid Influenza A Negative (Negative); Rapid Influenza B Negative (Negative)
[2024-10-27 03:03] LABS: COVID19 ANTIGEN SOFIA FIA NEGATIVE (NEGATIVE)
[2024-10-27 05:00] VITALS: BP 133/87; PULSE 68; RESP 18; TEMP 98; O2SAT 92
[2024-10-27 06:38] LABS: Anion Gap 7 (5-15); Calcium 9.2 mg/dL (8.7-10.4); Carbon Dioxide 25 mmol/L (20-31); Sodium 140 mmol/L (136-145)
[2024-10-27] MEDS: ACCU-CHEK COMFORT CURVE STRIP VI SCH (06:38)
[2024-10-27 06:40] LABS: Basophils # (auto) 0.1 10 ^3/uL (0-0.2); Basophils % (auto) 1.4 % (0.0-2.0); Eosinophils # (auto) 0.3 10 ^3/uL (0-0.8); Hematocrit 35.8 % (36.0-46.0); Mean Corpuscular Hgb Conc. 33.7 g/dL (32.0-36.0); Mean Corpuscular Volume 89.1 fL (80.0-100.0); Monocytes # (auto) 0.6 10 ^3/uL (0-1.3); Monocytes % (auto) 8.5 % (0.0-12.0); Neutrophils # (auto) 3.1 10 ^3/uL (1.6-8.6); Neutrophils % (auto) 44.1 % (37.0-80.0); Nucleated Red Blood Cells % 0.1 %; Platelet Count (auto) 244 10^3/uL (140-450); Red Blood Cells 4.01 10^6/uL (4.0-5.20); Red Cell Distribution Width 14.2 % (11.8-14.3)
[2024-10-27 06:44] LABS: BUN/Creatinine Ratio 16.7 (10.0-20.0); Blood Urea Nitrogen 16 mg/dL (9-23)
[2024-10-27 07:30] LABS: Urine Bacteria None Seen /hpf (None Seen)
[2024-10-27 08:14] LABS: Urine Blood Negative /uL (Negative); Urine Clarity Clear (Clear); Urine Color Yellow (Yellow); Urine Hyaline Cast MOD /lpf (0 - 2); Urine Mucus FEW (None Seen); Urine Protein, UAD TRACE (Negative); Urine Specific Gravity 1.028 (1.001-1.035); Urine Urobilinogen 3 mg/dL (Negative); Urine WBC 22 /hpf (0 - 5); Urine pH 5.5 (5.0-9.0)
[2024-10-27 08:22] LABS: Chloride 108 mmol/L (98-107); Glucose 192 mg/dL (74-106)
[2024-10-27 09:00] VITALS: BP 133/51; PULSE 61; RESP 17; TEMP 98.3; O2SAT 100
[2024-10-27 10:29] VITALS: BP 133/51; PULSE 61; TEMP 36.8
--- NOTE | 2024-10-27 17:55 | DVHDSRES ---
Discharge Summary Date of Admission Resident Creating Document: PRIMO SPRAGUE RESIDENT Oct 25, 2024 at 16:51 Date of Discharge: Oct 27, 2024 Admitting Diagnosis Upper GI bleed Labs/Diagnostic Data: Laboratory Results Test 10/27/24 06:45 10/27/24 06:27 10/27/24 05:38 10/27/24 01:15 Urine Color Yellow (Yellow) Urine Clarity Clear (Clear) Urine pH 5.5 (5.0-9.0) Urine Specific Scheller 1.028 (1.001-1.035) Urine Protein Trace (Negative) Urine Ketones Negative (Negative) Urine Blood Negative /uL (Negative) Urine Nitrite Negative (Negative) Urine Bilirubin Negative (Negative) Urine Urobilinogen 3 mg/dL (Negative) Urine Leukocyte Esterase 1+ /uL (Negative) Urine RBC 4 /hpf (0 - 4) Urine WBC 22 /hpf (0 - 5) Urine Squamous Epithelial Cells Few /hpf (<5) Urine Bacteria None seen /hpf (None Seen) Urine Hyaline Casts Mod /lpf (0 - 2) Urine Mucus Few (None Seen) Urine Glucose 4+ mg/dL (Normal) POC Glucose 159 mg/dl (70-106) White Blood Count 7.0 10^3/uL (4.4-10.8) Red Blood Count 4.01 10^6/uL (4.0-5.20) Hemoglobin 12.0 g/dL (12.2-16.2) Hematocrit 35.8 % (36.0-46.0) Mean Corpuscular Volume 89.1 fL (80.0-100.0) Mean Corpuscular Hemoglobin 30.0 pg (28.0-32.0) Mean Corpuscular Hemoglobin Concent 33.7 g/dL (32.0-36.0) Red Cell Distribution Width 14.2 % (11.8-14.3) Platelet Count 244 10^3/uL (140-450) Mean Platelet Volume 8.6 fL (6.9-10.8) Neutrophils (%) (Auto) 44.1 % (37.0-80.0) Lymphocytes (%) (Auto) 42.0 % (10.0-50.0) Monocytes (%) (Auto) 8.5 % (0.0-12.0) Eosinophils (%) (Auto) 4.0 % (0.0-7.0) Basophils (%) (Auto) 1.4 % (0.0-2.0) Neutrophils # (Auto) 3.1 10 ^3/uL (1.6-8.6) Lymphocytes # (Auto) 3.0 10 ^3/uL (0.4-5.4) Monocytes # (Auto) 0.6 10 ^3/uL (0-1.3) Eosinophils # (Auto) 0.3 10 ^3/uL (0-0.8) Basophils # (Auto) 0.1 10 ^3/uL (0-0.2) Nucleated Red Blood Cells 0.1 % Sodium Level 140 mmol/L (136-145) Potassium Level 4.0 mmol/L (3.5-5.1) Chloride Level 108 mmol/L (98-107) Carbon Dioxide Level 25 mmol/L (20-31) Anion Gap 7 (5-15) Blood Urea Nitrogen 16 mg/dL (9-23) Creatinine 0.96 mg/dL (0.550-1.02) Glomerular Filtration Rate Calc 59 mL/min (>90) BUN/Creatinine Ratio 16.7 (10.0-20.0) Serum Glucose 192 mg/dL (74-106) Calcium Level 9.2 mg/dL (8.7-10.4) Influenza Type A Antigen Negative (Negative) Influenza Type B Antigen Negative (Negative) SARS-CoV-2 Antigen (Rapid) Negative (NEGATIVE) Test 10/26/24 21:19 10/26/24 09:30 10/26/24 07:12 10/25/24 11:43 Urine Opiates Screen Neg (NEGATIVE) Urine Fentanyl Screen Neg (NEGATIVE) Urine Barbiturates Screen Neg (NEGATIVE) Urine Phencyclidine Screen Neg (NEGATIVE) Urine Amphetamines Screen Neg (NEGATIVE) Urine Benzodiazepines Screen Neg (NEGATIVE) Urine Cocaine Screen Neg (NEGATIVE) Urine Cannabinoids Screen Neg (NEGATIVE) Hemoglobin A1c 7.1 % A1C (<5.7) Magnesium Level 2.0 mg/dL (1.6-2.6) Total Bilirubin 0.6 mg/dL (0.2-1.0) Direct Bilirubin 0.2 mg/dL (0.0-0.3) Aspartate Amino Transferase (AST) 13 U/L (13-40) Alanine Aminotransferase (ALT) 9 U/L (7-40) Alkaline Phosphatase 82 U/L (46-116) Total Protein 6.7 g/dL (5.7-8.2) Albumin 3.9 g/dL (3.2-4.8) Vitamin B12 Level 496 pg/mL (211-911) Vitamin D 25-Hydroxy 32.2 ng/mL (30.0-100) Thyroid Stimulating Hormone (TSH) 6.14 uIU/mL (0.55-4.78) Free Thyroxine (T4) Calculated 1.33 ng/dL (0.89-1.76) Free Triiodothyronine (T3) pg/mL 2.73 pg/mL (2.3-4.2) Prothrombin Time 11.2 sec (9.3-11.8) Prothrombin Time INR 1.06 (0.9-1.15) Activated Partial Thromboplast Time 31.3 SEC (24.5-34.5) Other Laboratory Tests 10/27/24 05:38 Brief Hx & Hospital Course: This is an 78-year-old female with significant past medical history of type 2 diabetes, myocardial infarction, hypertension, chronic kidney disease, cerebrovascular accident and hepatic steatosis who presented to the emergency department with the chief complaint of nasal bleeding and dizziness starting on October 23. She was initially evaluated and discharged after stabilization but returned 2 days later with recurrent nasal bleeding and similar episodes of dizziness. The patient was taking aspirin 325 mg and Plavix 75 mg for cardiovascular disease which has been stopped after the 1st episode of bleeding. Hospital course: On admission physical examination revealed no active bleeding but med nausea. Endoscopy confirmed a 1-2 cm sliding hiatal hernia with slight irregularities in the squamocolumnar junction but no active bleeding in the 2nd or 3rd part of the duodenum. Imaging and further investigation rule out acute gastrointestinal hemorrhage or hemodynamic instability. The patient was managed conservatively and a posterior pack was placed in the nose to control any residual bleeding from the nasal side. N no transfusion of fresh frozen plasma was required during hospitalization. The hepatic function test showed no significant liver disease etc. for hepatic steatosis, the patient was noted to have history of hepatitis-C that was confirmed by her daughter for which we ordered a hepatitis panel. During hospitalization the patient remained hemodynamically stable, tolerated clear liquids well and showed gradual resolution of symptoms. There was no further recurrence of nasal bleeding or GI bleeding. On discharge we will continue with Protonix 40 mg daily to manage gastritis and prevent further irritation of the upper GI tract and resume diet transitioning to a full diet as tolerated. Patient was advised to follow-up with ENT to reassess nasal packing and ensure no recurrence of nasal bleeding. Disposition: The patient was discharged in stable condition with no active nasal or GI bleeding and improved symptoms she remained asymptomatic at the time of discharge with no significant complaints. Case discussed with Dr. Nichols Goals of care discussed with the patient for 38 minutes. Operations or Procedures [place] [address] Ph: [phone] DIAGNOSTIC IMAGING Diagnostic Imaging Report : [id number] Signed PATIENT: ORLANDO ESCOBAR ACCT: [id number] UNIT: [id number] : 1945 LOC: ER ROOM / BED: / AGE / SEX: 79 / F ADM STATUS: REG ER SERVICE 1116 ORDERING PHYSICIAN: MIN JAVED MD PROCEDURE(s): ABPL - CT AB PEL WO CON-NO ORAL OR IV REASON: Lower GI bleed ORDER NUMBER(s): [id number], ACCESSION NUMBER(s): [id number] Procedure: CT CT AB PEL WO CON-NO ORAL OR IV 10/25/2024 11:22 AM Indication: Lower GI bleed Comparison Study: None available at time of dictation. Technique: Axial images were obtained and reformatted in coronal and sagittal planes. All CT scans at this medical facility are performed using dose modulation techniques as appropriate to a performed exam including the following: Automated exposure control was utilized; adjustment of the MA and/or KV according to patient size; and use of iterative reconstruction technique. CT Dose: CTDI volume is 15.54 mGy. Dose-length product is 764.56 mGy*cm FINDINGS: Lower Chest: The heart is normal in size. Coronary artery calcification noted. Hepatobiliary: Hepatomegaly. Nodularity liver contour suggestive of cirrhosis. No hepatic steatosis. No intrahepatic or extrahepatic ductal dilatation.. Spleen: Unremarkable. Pancreas: Unremarkable. Adrenal Glands: Unremarkable. tract: The kidneys are normal in size bilaterally without hydronephrosis . A 5 mm nonobstructing stone is seen in the upper pole of the right kidney. The urinary bladder is unremarkable. GI tract: The stomach is grossly normal in appearance. No evidence of small bowel obstruction. Scattered colonic diverticula are noted without evidence of diverticulitis. Lymphatics: No mesenteric, retroperitoneal or periportal lymphadenopathy. Vasculature: The abdominal aorta is normal in in caliber with diffuse atherosclerotic calcifications noted. Pelvic Organs: Anteverted uterus. A small amount of air is seen in the vaginal cuff. No adnexal lesion is identified. Bones/soft tissues: No acute abnormality. Multilevel degenerative changes of the lumbar spine noted. Other: None. IMPRESSION: 1. No CT evidence for acute intra-abdominal or intrapelvic process. 2. Scattered colonic diverticula without diverticulitis. 3. Mild hepatomegaly and nodularity liver contour suggestive of cirrhosis. Correlate clinically. 4. Subcentimeter nonobstructing right renal stone. 5. Diffuse atherosclerotic calcification of the aortoiliac arteries. ATED BY: KEIRY MORENO MD DICTATED DATE/TIME: 10/25/24 115 SIGNED BY: KEIRY MORENO MD SIGNED DATE/TIME: 10/25/24 115 CC: [place] [address] Ph: [phone] DIAGNOSTIC IMAGING Diagnostic Imaging Report : [id number] Signed PATIENT: ORLANDO ESCOBAR ACCT: [id number] UNIT: [id number] : 1945 LOC: OVERFLOW ROOM / BED: [address] [place] [address] AGE / SEX: 79 / F ADM STATUS: ADM IN SERVICE 1710 ORDERING PHYSICIAN: KARINA SKY DNP PROCEDURE(s): ABDL - ABDOMEN LIMITED REASON: eval cirrhosis of liver found on ct scan ORDER NUMBER(s): [id number], ACCESSION NUMBER(s): [id number] Procedure: US ABDOMEN LIMITED Study Date and Requested Time: 10/25/2024 05:19 PM History: eval cirrhosis of liver found on ct scan Comparison: US LIVER on DOS: 06/21/24 Technique: Multiple high resolution rivera-scale images obtained of the right upper quadrant of the abdomen with color Doppler for evaluation of blood flow and vascularity as indicated. Findings: Liver normal in size, measuring 17 cm in length, with increased echogenicity and coarse echotexture. No evidence of focal hepatic lesions, intrahepatic or extrahepatic ductal dilatation. Common bile duct measures 0.3 cm in diameter. Gallbladder unremarkable with no evidence of abnormal wall thickening, gallstones, biliary sludge, or pericholecystic fluid. Negative sonographic Spear's sign. Pancreatic tail is obscured by bowel gas with the visualized pancreas unremarkable. Right kidney measures 9.6 cm in length, with normal contours, echotexture, and cortical thickness. No evidence of hydronephrosis, calculi, cystic or solid renal lesions. Partially visualized inferior vena cava unremarkable. Impression: Mild hepatomegaly with increased hepatic echogenicity which may be from hepatic disease/ hepatic steatosis. Pancreatic tail is obscured by bowel gas with the visualized pancreas unremarkable. 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 hepatitis C infection #Hepatic steatosis #Normocytic normochromic anemia, hemoglobin 12.3 #Possible primary hypothyroidism #Type 2 diabetes, hemoglobin A1c 7.1 #Type 1 obesity Discharge Disposition: Home SNF Discharge Will this Physician continue t: No Discharge Instruct/Medications Diet: Cardiac 2g Na,low cholest Activity: No Restrictions, As Tolerated Follow Up/Referral: follow up with pcp in 2 weeks follow up with ENT Medications: Script to pharmacy Discharge Statement: "Patient was advised to return to the ER or call 911 if any headaches, dizziness, shortness of breath, chest pain, abdominal pain, bleeding, fevers, or worsening of medical condition. Patient was counseled about treatment plan, medications, possible side effects, patientverbalized understanding. All questions were answered to the best of my ability. This discharge took greater then 30 minutes in planning, reviewing documentation, counseling the patient, and discussing with other team members." ASSESSMENT ASSESSMENT Assessment acute apper GI bleedin epistaxis Date of Service: Oct 27, 2024 Billing Provider: SEBASTIEN NICHOLS MD Common Visit Codes: 47938-JLE/OBS DISCH DAY >30min PRIMO SPRAGUE RESIDENT Oct 27, 2024 17:55 SEBASTIEN NICHOLS MD Oct 28, 2024 10:41
--- NOTE | 2024-10-27 20:11 | DVHPN2 ---
Progress Note - Dictate Date Seen: Oct 27, 2024 (Late entryPatient seen at 8:00 a.m.) Medical Necessity Reason Pt with a Central, PICC or Fol: No Subjective Patient seen at bedside She has no further episodes of bleeding Hemoglobin stable at 12.0 Her left Rhinocort also appears to be dry with no further oozing Her left Rhinocort was removed via the charge nurse as per my request vital signs Vital Sign Date Time Temp Pulse Resp B/P (MAP) Pulse Ox O2 Delivery O2 Flow Rate FiO2 10/27/24 10:29 36.8 61 10/27/24 09:10 133/51 10/27/24 09:00 17 100 10/27/24 08:00 Room Air* 0 21 Total Intake and Output 10/26/24 10/26/24 10/27/24 15:00 23:00 07:00 Intake Total 20 ml 1716 ml 1225 ml Balance 20 ml 1716 ml 1225 ml objective General: NAD, AAOX3 Chest: lung arenas clear to auscultation Heart: RRR, no murmur Abdomen: non-distended, no tenderness to palpation, +BS, no hepatosplenomegaly laboratory and microbiology Laboratory Tests 10/27/24 05:38 Test 10/27/24 05:38 Range/Units Serum Glucose 192 H 74-106 mg/dL Problems(with codes): (1) Epistaxis (2) Generalized weakness (3) Melena (4) Gastritis (5) Hiatal hernia Prognosis Plan No active bleeding at this time and patient is tolerating a diet Discharge planning is in place Patient was advised to follow up with her ENT specialist in 1-2 weeks She will discontinue aspirin or Plavix 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 daily Outpatient follow up with me next available appointment for management of hep C and to discuss elective colonoscopy. I believe the patient had had a recent colonoscopy which she reports negative Plan discussed with: Patient, Other (Dr Diaz) MORENO MENDEZ MD Oct 27, 2024 20:11
[2024-10-29 12:05] LABS: Hepatitis B Surface Antigen Negative (Negative)
[2024-10-29 13:17] LABS: Hepatitis C Antibody Negative (Negative)
== END 2024-10-27 11:29 | disposition home or self-care (01) | DRG 392 ==
LOC: ER 09:40 → OVERFLOW 16:51 → WEST WING 22:15
PROVIDERS: ADMIT Internal Medicine; ATTEND Internal Medicine
PROC: 0DB68ZX Excision of Stomach, Via Natural or Artificial Opening Endoscopic, Diagnostic (ICD-10-PCS; 2024-10-26)
PROC: 0DB98ZX Excision of Duodenum, Via Natural or Artificial Opening Endoscopic, Diagnostic (ICD-10-PCS; principal; 2024-10-26 13:06)
DX: K31.9 Disease of stomach and duodenum, unspecified (principal); Z68.44 Body mass index [BMI] 60.0-69.9, adult; K44.9 Diaphragmatic hernia without obstruction or gangrene; K29.70 Gastritis, unspecified, without bleeding; D64.9 Anemia, unspecified; E11.22 Type 2 diabetes mellitus with diabetic chronic kidney disease; E11.65 Type 2 diabetes mellitus with hyperglycemia; E78.5 Hyperlipidemia, unspecified; N20.0 Calculus of kidney; N18.9 Chronic kidney disease, unspecified; I12.9 Hypertensive chronic kidney disease with stage 1 through stage 4 chronic kidney disease, or unspecified chronic kidney disease; R04.0 Epistaxis; K74.69 Other cirrhosis of liver; K76.0 Fatty (change of) liver, not elsewhere classified; B19.20 Unspecified viral hepatitis C without hepatic coma; B18.2 Chronic viral hepatitis C; E03.9 Hypothyroidism, unspecified; E66.9 Obesity, unspecified; T50.995A Adverse effect of other drugs, medicaments and biological substances, initial encounter; Z86.73 Personal history of transient ischemic attack (TIA), and cerebral infarction without residual deficits; Z88.6 Allergy status to analgesic agent; Y92.89 Other specified places as the place of occurrence of the external cause
CPT/HCPCS: 36415; 74176; 76705; 80048; 80053; 80307; 81001; 82248; 82306; 82607; 82962; 83036; 83735; 84439; 84443; 84481; 85014; 85018; 85025; 85610; 85730; 86803; 87340; 87426; 87804; 96374; G0378; J2250; J2405; J2470; J2704

== ENCOUNTER 2024-10-28 21:18 | Emergency (ER) | payer MEDICARE, BC ==
[~2024-10-28] VITALS: Ht 152.4 cm; Wt 72.5 kg
[~2024-10-28 21:18] MED LIST changes: -CEPH250C PO
--- NOTE | 2024-10-28 22:25 | ED.PDOC ---
Musculoskeletal HPI Comments 79Y F with PMHx DM, HTN, HLD, CKD, thyroid, WI, and CVA presents to ED for chief complaint RLE pain x1day. Pt states she is having a hard time walking. Pt was discharged from [facility] yesterday, 10/27/2024, with dx acute upper GI bleed after having upper endoscopy performed. Pt was also seen at [facility] ER on 10/22/2024 and 10/23/2024 for dx epistaxis. Pt spoke with specialist today who recommended her to go to ER to r/o DVT as pt has been laying down flat for long periods of time. Chief Complaint: Lower Extremity Time Seen by MD: 22:05 Primary Care Provider: MARK Reviewed Notes: Nurses Notes, Medications, Allergies Allergies: Coded Allergies: Ibuprofen (Verified Allergy, Unknown, 06/20/24) Home Meds Reported Medications Carvedilol (Carvedilol) 6.25 Mg Tab, 6.25 MG PO BID, MG 06/21/24 Baclofen (Baclofen) 10 Mg Tab, 10 MG PO BID, MG 06/21/24 Cholecalciferol (VITAMIN D3) 2,000 Unit Tab, 1 TAB PO DAILY, #30 TAB 5 Refills 10/15/22 Ascorbic Acid (VITAMIN C TABLET) 500 Mg Tb, 1000 MG PO DAILY, #30 TAB 3 Refills 10/15/22 Zinc Gluconate (Zinc) 50 Mg Tab, 50 MG PO DAILY, TAB 10/15/22 Uurtq-1-Tefu Ethyl Esters ( (VASCAZEN) 1 Gm Cap, 1 CAP PO DAILY 10/15/22 Pantoprazole Sodium Sesquihydr (Pantoprazole Sodium) 40 Mg Tab, 1 TAB PO DAILY 10/15/22 Dapagliflozin Propanediol (Farxiga) 10 Mg Tab, 1 TAB PO DAILY 10/15/22 Aspirin (Aspirin Adult Low Dose) 81 Mg Tab, 1 TAB PO DAILY 10/15/22 Clopidogrel Bisulfate (CLOPIDOGREL) 75 Mg Tab, 1 TAB PO DAILY 10/15/22 Amlodipine Besylate (Amlodipine Besylate) 5 Mg Tab, 1 TAB PO DAILY 10/15/22 Finerenone (Kerendia) 10 Mg Tab, 1 TAB PO DAILY 10/15/22 Losartan Potassium (Losartan Potassium) 50 Mg Tab, 1 TAB PO BID 10/15/22 Montelukast Sodium (MONTELUKAST SODIUM) 10 Mg Tab, 1 TAB PO DAILY 10/15/22 Fenofibrate (FENOFIBRATE) 145 Mg Tab, 1 TAB PO DAILY 10/15/22 Levothyroxine Sodium (Synthroid) 75 Mcg Tab, 1 TAB PO QAM 10/15/22 Insulin Glargine (Basaglar Kwikpen) 100 Unit/Ml Inj, 30 UNITS SC HS 10/15/22 Insulin Lispro (Humalog Kwikpen) 100 Unit/Ml Inj, 15 UNITS SC TIDWMEALS 10/15/22 Travoprost (Travoprost) 0.004 % Philip, 1 DROP EACHEYE HS 10/15/22 Timolol Maleate (Ophth) (Timolol Maleate) 0.5 % Maggie, 1 DROP EACHEYE BID 10/15/22 Information Source: Patient Mode of Arrival: Wheelchair Location: Right Extremity Location: Leg Timing: Days Severity: Mild Able to Move Extremity: Yes Bear Weight: Fully Pain: Mild Onset of Symptoms: Spontaneous Symptoms: Swelling, Pain DVT Risk Factors: Recent surgery Associated signs and symptoms: Leg pain (right) Past Medical History PAST MEDICAL HISTORY: CKF, CVA, DM, High Lipids, HTN, WI, Thyroid Surgical History: [employer] 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: No 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 Family History Family History: No family hx of Cancer, No family hx of DM, No family hx of HTN, No family hx ofKidney haris, No family hx of Liver haris, No family hx of Lung haris, No family hx of Stroke, Family hx of heart haris Social History Smoker: Non-Smoker, Quit Greater Than 1 Year Alcohol: Denies ETOH Use Drugs: Denies Drug Use Lives In: Home Constitutional: denies: chills, diaphoresis, fatigue, fever, malaise, sweats, weakness, others EENTM: denies: blurred vision, double vision, ear bleeding, ear discharge, ear drainage, ear pain, ear ringing, eye pain, eye redness, hearing loss, mouth pain, mouth swelling, nasal discharge, nose bleeding, nose congestion, nose pain, photophobia, tearing, throat pain, throat swelling, voice changes, others Respiratory: denies: cough, hemoptysis, orthopnea, SOB at rest, shortness of breath, SOB with excertion, stridor, wheezing, others Cardiovascular: denies: chest pain, dizzy spells, diaphoresis, Dyspnea on exertion, edema, irregular heart beat, left arm pain, lightheadedness, palpitations, PND, syncope, others Gastrointestinal: denies: abdomen distended, abdominal pain, blood streaked bowels, constipated, diarrhea, dysphagia, difficulty swallowing, hematemesis, melena, nausea, poor appetite, poor fluid intake, rectal bleeding, rectal pain, vomiting, others Genitourinary: denies: abnormal vagina bleeding, burning, dyspareunia, dysuria, flank pain, frequency, hematuria, incontinence, pain, , vagina discharge, urgency, others Neurological: denies: dizziness, fainting, headache, left sided numbness, left sided weakness, numbness, paresthesia, pre-existing deficit, right sided numbness, right sided weakness, seizure, speech problems, tingling, tremors, weakness, others Musculoskeletal: denies: back pain, gout, joint pain, joint swelling, muscle pain, muscle stiffness, neck pain, others Integumetry: denies: bruises, change in color, change in hair/nails, dryness, laceration, lesions, lumps, rash, wounds, others Allergic/Immunocompromised: denies: Difficulty Healing, Frequent Infections, Hives, Itching, others Hematologic/Lymphatic: denies: anemia, blood clots, easy bleeding, easy bruising, swollen glands, others Endocrine: denies: excessive hunger, excessive sweating, excessive thirst, excessive urination, flushing, intolerance to cold, intolerance to heat, unexplained weight gain, unexplained weight loss, others Psychiatric: denies: anxiety, bipolar disorder, depression, hopeless, panic disorder, schizophrenia, sleepless, suicidal, others All Other Systems: Reviewed and Negative Physical Exam General Appearance: No Apparent Distress, Normal HEENT: Normal ENT Inspection, Pharynx Normal, TMs Normal Neck: Full Range of Motion, Non-Tender, Normal, Normal Inspection Respiratory: Chest Non-Tender, Lungs Clear, No Accessory Muscle Use, No Respiratory Distress, Normal Breath Sounds Cardiovascular: No Edema, No JVD, No Murmur, No Gallop, Normal Peripheral Pulses, Regular Rate/Rhythm Breast Exam: Deferred Gastrointestinal: No Organomegaly, Non Tender, No Pulsatile Mass, Normal Bowel Sounds, Soft Genitalia: Deferred Pelvic: Deferred Rectal: Deferred Extremities: No calf tenderness, Normal capillary refill, Normal inspection, Normal range of motion, Non-tender, No pedal edema Musculoskeletal : Location: Right Extremity Location: Leg Apperance: Swelling (mild, no redness) Neurologic: Alert, 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 Was a procedure done?: No Differential Diagnosis EXT Differential Diagnosis: Deep Vein Thrombosis X-Ray, Labs, Meds, VS Vital Signs Date Time Temp Pulse Resp B/P (MAP) Pulse Ox O2 Delivery O2 Flow Rate FiO2 10/28/24 21:47 98.3 78 16 162/61 (94) 95 X-Ray, Labs, Meds, VS Comment Imaging: X-rays and CT scans were reviewed and interpreted by this provider, imaging shows no fractures and no pathological disease. Pending radiology review. Laboratory: Labs reviewed and interpreted by this provider. No significant abnormalities noted. Patient has prior medical visits reviewed. Med reconciliation performed Vital signs reviewed Time of 1ST Reevaluation: 22:35 Reevaluation 1ST: Unchanged Patient Education/Counseling: Diagnosis, Treatment, Need For Follow Up (Follow up with PCP next available appointment) Family Education/Counseling: No Family Present Departure 1 Departure Time of Disposition: 23:10 Impression: Primary Impression: Dehydration Additional Impression: Synovial cyst of popliteal space [Cole], right knee Disposition: 01 HOME / SELF CARE / HOMELESS Condition: Fair Discharged With: Self Critical Care Note Critical Care Time?: No Stability Stability form required: No Heart Score Heart Score: Heart Score Response (Comments) Value History N/A 0 EKG N/A 0 Age N/A 0 Risk Factors N/A 0 Troponin N/A 0 Total 0 I personally scribed for YADIEL WALLACE MD ([email or web address]) on 10/28/24 at 22:25. Electronically submitted by Sherry Rome ([facility]). YADIEL WALLACE MD Oct 28, 2024 22:25 GLENNA MAJOR Oct 28, 2024 23:11
--- NOTE | 2024-10-28 22:41 | DVH ---
CLINICAL HISTORY: Rt leg pain TECHNIQUE: Color and duplex doppler imaging of the right lower extremity veins was performed. Vessel compression if possible was also performed. WID: COMPARISON: US RT LOWER DVT on DOS: 06/13/23 FINDINGS: Right common femoral vein: Normal compressibility and flow. Right femoral vein: Normal compressibility and flow. Right popliteal vein: Normal compressibility and flow. Proximal calf veins are normally compressible. Cole's cyst in the popliteal fossa measures 4.5 x 2.2 x 3.6 cm. IMPRESSION: 1. NO SONOGRAPHIC EVIDENCE FOR DEEP VENOUS THROMBOSIS IN THE RIGHT LOWER EXTREMITY VEINS. 2. Cole's cyst in the right popliteal fossa .
[2024-10-29] MEDS: HYDROcodone-ACET 5/325MG TAB PO ONE (00:20)
[2024-10-29 00:23] VITALS: BP 153/52; PULSE 73; RESP 19; TEMP 98.5; O2SAT 94
== END 2024-10-29 00:26 | disposition home or self-care (01) ==
LOC: ER 21:18
DX: M71.21 Synovial cyst of popliteal space [Baker], right knee (principal); E86.0 Dehydration; I12.9 Hypertensive chronic kidney disease with stage 1 through stage 4 chronic kidney disease, or unspecified chronic kidney disease; N18.9 Chronic kidney disease, unspecified; E78.5 Hyperlipidemia, unspecified; E11.22 Type 2 diabetes mellitus with diabetic chronic kidney disease; Z86.73 Personal history of transient ischemic attack (TIA), and cerebral infarction without residual deficits; Z79.84 Long term (current) use of oral hypoglycemic drugs; Z79.4 Long term (current) use of insulin; Z79.02 Long term (current) use of antithrombotics/antiplatelets; Z79.899 Other long term (current) drug therapy; Z88.6 Allergy status to analgesic agent
CPT/HCPCS: 93971

== ENCOUNTER 2025-03-05 12:41 | Inpatient (IN) | payer MEDICARE, BC ==
[~2025-03-05] VITALS: Ht 152.4 cm; Wt 67.6 kg
--- NOTE | 2025-03-05 15:03 | DVH ---
CHEST RADIOGRAPH Indication: r/o pna Technique: Single frontal view of the chest was obtained Comparison: XY CHEST PORTABLE on DOS: 08/02/24, XY CHEST PORTABLE on DOS: 05/12/23, CXR1 on DOS: , CHEST XRAY 1 VIEW on DOS: 10/15/22 FINDINGS: Lines and Tubes: None Lungs: No focal consolidation. Pleura: No effusion. No pneumothorax. Cardiomediastinal contours: Unremarkable Bones: No acute osseous abnormality. IMPRESSION: No acute cardiopulmonary disease.
[2025-03-05 15:08] LABS: Basophils # (auto) 0.1 10 ^3/uL (0-0.2); Basophils % (auto) 1.4 % (0.0-2.0); Eosinophils # (auto) 0.1 10 ^3/uL (0-0.8); Eosinophils % (auto) 0.8 % (0.0-7.0); Hematocrit 40.2 % (36.0-46.0); Hemoglobin 13.4 g/dL (12.2-16.2); Lymphocytes # (auto) 3.1 10 ^3/uL (0.4-5.4); Lymphocytes % (auto) 27.9 % (10.0-50.0); Mean Corpuscular Hemoglobin 27.1 pg (28.0-32.0); Mean Corpuscular Hgb Conc. 33.3 g/dL (32.0-36.0); Mean Corpuscular Volume 81.2 fL (80.0-100.0); Monocytes # (auto) 0.9 10 ^3/uL (0-1.3); Neutrophils # (auto) 6.8 10 ^3/uL (1.6-8.6); Neutrophils % (auto) 61.9 % (37.0-80.0); Nucleated Red Blood Cells % 0.1 %; Platelet Count (auto) 333 10^3/uL (140-450); Red Blood Cells 4.95 10^6/uL (4.0-5.20); Red Cell Distribution Width 14.3 % (11.8-14.3)
[2025-03-05 15:22] LABS: COVID19 ANTIGEN SOFIA FIA NEGATIVE (NEGATIVE)
[2025-03-05 15:23] LABS: Rapid Influenza A Negative (Negative); Rapid Influenza B Negative (Negative)
[2025-03-05 15:26] LABS: Albumin 4.5 g/dL (3.2-4.8); Alkaline Phosphatase 76 U/L (46-116); Anion Gap 9 (5-15); Aspartate Aminotransferase 14 U/L (13-40); BUN/Creatinine Ratio 23.8 (10.0-20.0); Blood Urea Nitrogen 19 mg/dL (9-23); Calcium 9.6 mg/dL (8.7-10.4); Carbon Dioxide 25 mmol/L (20-31); Chloride 104 mmol/L (98-107); Glucose 89 mg/dL (74-106); Potassium 3.8 mmol/L (3.5-5.1); Sodium 138 mmol/L (136-145)
[2025-03-05 15:27] LABS: Bilirubin, Total 0.7 mg/dL (0.2-1.0)
[2025-03-05 15:28] LABS: Alanine Aminotransferase < 9 U/L (7-40)
[2025-03-05 15:50] LABS: Erythrocyte Sedimentation Rate 81 mm/hr (0-20)
[2025-03-05 15:56] LABS: CRP High Sensitivity 15.38 mg/dL (<1.0)
--- NOTE | 2025-03-05 16:06 | ED.PDOC ---
Musculoskeletal HPI Comments This is a pleasant 79-year-old female who presents with a with a chief complaint of generalized weakness, unable to ambulate, and generalized myalgia predominantly located to the upper and lower back, bilateral shoulders, bilateral thighs, bilateral thighs and bilateral lower extremities. Symptoms occurred three days ago. Possible sick contact Was seen at Dr. Garrido's office today and was advised she needed and goes the ER Denies persistent chest pain, shortness of breath, leg swelling Denies history of asthma nor any breathing conditions Denies history of pneumonia Denies recent international travel Chief Complaint: Lower Extremity Time Seen by MD: 14:11 Primary Care Provider: MARK Reviewed Notes: Nurses Notes, Medications, Allergies Allergies: Coded Allergies: Ibuprofen (Verified Allergy, Unknown, 06/20/24) Home Meds Active Scripts Naproxen (NAPROSYN TABLET) 500 Mg Tb, 250 MG PO BID for 10 Days, #10 TAB Prov:KINDRA LAWRENCE RESIDENT 03/08/25 Reported Medications Mesalamine (Canasa) 1,000 Mg Sup, 800 MG RE BIDBRS, SUPP 03/06/25 Carvedilol (Carvedilol) 6.25 Mg Tab, 6.25 MG PO BID, MG 06/21/24 Cholecalciferol (VITAMIN D3) 2,000 Unit Tab, 1 TAB PO DAILY, #30 TAB 5 Refills 10/15/22 Ascorbic Acid (VITAMIN C TABLET) 500 Mg Tb, 1000 MG PO DAILY, #30 TAB 3 Refills 10/15/22 [id number] Ethyl Esters ( (VASCAZEN) 1 Gm Cap, 1 CAP PO DAILY 10/15/22 Pantoprazole Sodium Sesquihydr (Pantoprazole Sodium) 40 Mg Tab, 1 TAB PO DAILY 10/15/22 Dapagliflozin Propanediol (Farxiga) 10 Mg Tab, 1 TAB PO DAILY 10/15/22 Aspirin (Aspirin Adult Low Dose) 81 Mg Tab, 1 TAB PO DAILY 10/15/22 Clopidogrel Bisulfate (CLOPIDOGREL) 75 Mg Tab, 1 TAB PO DAILY 10/15/22 Amlodipine Besylate (Amlodipine Besylate) 5 Mg Tab, 1 TAB PO DAILY 10/15/22 Finerenone (Kerendia) 10 Mg Tab, 1 TAB PO DAILY 10/15/22 Losartan Potassium (Losartan Potassium) 50 Mg Tab, 1 TAB PO BID 10/15/22 Fenofibrate (FENOFIBRATE) 145 Mg Tab, 1 TAB PO DAILY 10/15/22 Levothyroxine Sodium (Synthroid) 75 Mcg Tab, 1 TAB PO QAM 10/15/22 Insulin Glargine (Basaglar Kwikpen) 100 Unit/Ml Inj, 30 UNITS SC HS 10/15/22 Insulin Lispro (Humalog Kwikpen) 100 Unit/Ml Inj, 15 UNITS SC TIDWMEALS 10/15/22 Travoprost (Travoprost) 0.004 % Philip, 1 DROP EACHEYE HS 10/15/22 Timolol Maleate (Ophth) (Timolol Maleate) 0.5 % Maggie, 1 DROP EACHEYE BID 10/15/22 Discontinued Reported Medications Levothyroxine Sodium (Synthroid) 75 Mcg Tab, 1 TAB PO DAILY, #30 TAB 5 Refills 03/06/25 Zinc Gluconate (Zinc) 50 Mg Tab, 50 MG PO DAILY, TAB 10/15/22 Montelukast Sodium (MONTELUKAST SODIUM) 10 Mg Tab, 1 TAB PO DAILY 10/15/22 Baclofen (Baclofen) 10 Mg Tab, 10 MG PO BID, MG 06/21/24 Information Source: Patient Mode of Arrival: Wheelchair Past Medical History PAST MEDICAL HISTORY: CKF, CVA, DM, High Lipids, HTN, MS, Thyroid Surgical History: PTCA FIRE WATCHER History: No Pertinent FIRE WATCHER History Family History Family History: No family hx of Cancer, No family hx of DM, No family hx of HTN, No family hx ofKidney haris, No family hx of Liver haris, No family hx of Lung haris, No family hx of Stroke, Family hx of heart haris Social History Smoker: Non-Smoker, Quit Greater Than 1 Year Alcohol: Denies ETOH Use Drugs: Denies Drug Use Lives In: Home All Other Systems: Reviewed and Negative (PER HPI) Physical Exam General Appearance: No Apparent Distress, Normal HEENT: Normal ENT Inspection, Pharynx Normal, TMs Normal Neck: Full Range of Motion, Non-Tender, Normal, Normal Inspection Respiratory: Chest Non-Tender, Lungs Clear, No Accessory Muscle Use, No Respiratory Distress, Normal Breath Sounds Cardiovascular: No Edema, No JVD, No Murmur, No Gallop, Normal Peripheral Pulses, Regular Rate/Rhythm Breast Exam: Deferred Gastrointestinal: No Organomegaly, Non Tender, No Pulsatile Mass, Normal Bowel Sounds, Soft Genitalia: Deferred Pelvic: Deferred Rectal: Deferred Extremities: No calf tenderness, Normal capillary refill, Normal inspection, Normal range of motion, Non-tender, No pedal edema Musculoskeletal : Apperance: Normal Neurologic: Alert, No Motor Deficits, Normal Affect, Normal Mood, No Sensory Deficits Cerebellar Function: Normal Reflexes: Normal Skin: Dry, Normal Color, Warm Lymphatic: No Adenopathy Was a procedure done? Was a procedure done?: No Differential Diagnosis EXT Differential Diagnosis: Septic, Other (Pneumonia, influenza, electrolyte imbalance) X-Ray, Labs, Meds, VS Vital Signs Date Time Temp Pulse Resp B/P (MAP) Pulse Ox O2 Delivery O2 Flow Rate FiO2 03/05/25 14:52 74 18 97 Room Air 03/05/25 14:52 98.7 77 17 157/66 (96) 97 98.7 03/05/25 13:26 98.6 73 18 164/63 (96) 92 98.6 Lab Test 03/05/25 14:45 03/05/25 14:37 03/05/25 14:32 Range/Units White Blood Count 11.0 H 4.4-10.8 10^3/uL Red Blood Count 4.95 4.0-5.20 10^6/uL Hemoglobin 13.4 12.2-16.2 g/dL Hematocrit 40.2 36.0-46.0 % Mean Corpuscular Volume 81.2 80.0-100.0 fL Mean Corpuscular Hemoglobin 27.1 L 28.0-32.0 pg Mean Corpuscular Hemoglobin Concent 33.3 32.0-36.0 g/dL Red Cell Distribution Width 14.3 11.8-14.3 % Platelet Count 333 140-450 10^3/uL Mean Platelet Volume 8.7 6.9-10.8 fL Neutrophils (%) (Auto) 61.9 37.0-80.0 % Lymphocytes (%) (Auto) 27.9 10.0-50.0 % Monocytes (%) (Auto) 8.0 0.0-12.0 % Eosinophils (%) (Auto) 0.8 0.0-7.0 % Basophils (%) (Auto) 1.4 0.0-2.0 % Neutrophils # (Auto) 6.8 1.6-8.6 10 ^3/uL Lymphocytes # (Auto) 3.1 0.4-5.4 10 ^3/uL Monocytes # (Auto) 0.9 0-1.3 10 ^3/uL Eosinophils # (Auto) 0.1 0-0.8 10 ^3/uL Basophils # (Auto) 0.1 0-0.2 10 ^3/uL Nucleated Red Blood Cells 0.1 % Erythrocyte Sedimentation Rate 81 H 0-20 mm/hr Sodium Level 138 136-145 mmol/L Potassium Level 3.8 3.5-5.1 mmol/L Chloride Level 104 98-107 mmol/L Carbon Dioxide Level 25 20-31 mmol/L Anion Gap 9 5-15 Blood Urea Nitrogen 19 9-23 mg/dL Creatinine 0.80 0.550-1.02 mg/dL Glomerular Filtration Rate Calc 74 >90 mL/min BUN/Creatinine Ratio 23.8 H 10.0-20.0 Serum Glucose 89 74-106 mg/dL Lactic Acid Level 1.1 0.4-2.0 mmol/L Calcium Level 9.6 8.7-10.4 mg/dL Total Bilirubin 0.7 0.2-1.0 mg/dL Aspartate Amino Transferase (AST) 14 13-40 U/L Alanine Aminotransferase (ALT) < 9 7-40 U/L Alkaline Phosphatase 76 46-116 U/L Creatine Kinase 25 L 34-145 U/L C-Reactive Protein High Sensitivity 15.38 H <1.0 mg/dL Total Protein 8.0 5.7-8.2 g/dL Albumin 4.5 3.2-4.8 g/dL Thyroid Stimulating Hormone (TSH) 1.24 0.55-4.78 uIU/mL Rheumatoid Factor 13.3 <14.0 IU/mL Influenza Type A Antigen Negative Negative Influenza Type B Antigen Negative Negative SARS-CoV-2 Antigen (Rapid) Negative NEGATIVE Urine Color Yellow Yellow Urine Clarity Turbid H Clear Urine pH 5.5 5.0-9.0 Urine Specific [place] 1.027 1.001-1.035 Urine Protein 1+ H Negative Urine Ketones Trace Negative Urine Blood 1+ H Negative /uL Urine Nitrite Negative Negative Urine Bilirubin Negative Negative Urine Urobilinogen 4 H Negative mg/dL Urine Leukocyte Esterase 2+ Negative /uL Urine RBC 12 0 - 4 /hpf Urine Microscopic WBC 14 H 0-5 /HPF Urine Squamous Epithelial Cells Mod <5 /hpf Urine Bacteria None seen None Seen /hpf Urine Mucus Few None Seen Urine Yeast (Budding) Occasional None Seen /hpf Urine Glucose 4+ H Normal mg/dL X-Ray, Labs, Meds, VS Comment This patient presents with vague weakness. Differential considered but not limited to infectious etiology, metabolic abnormality, endocrinopathy, anemia, medication-related. The patient had NO fever, NO chest pain, NO shortness of breath, NO abdominal pain. An IV was established and laboratory studies obtained. The cause of this patient's generalized weakness is unknown at this time. The patient's symptoms did not improve, Amitting team consulted. Time of 1ST Reevaluation: 16:03 Reevaluation 1ST: Improved Patient Education/Counseling: Diagnosis, Treatment Family Education/Counseling: Diagnosis, Treatment Departure 1 Departure Time of Disposition: 16:05 Impression: Primary Impression: Generalized weakness Disposition: ADMITTED INPATIENT Condition: Serious e-Prescriptions Naproxen (NAPROSYN TABLET) 500 Mg Tb 250 MG PO BID for 10 Days, #10 TAB Prov: KINDRA LAWRENCE RESIDENT 03/08/25 Critical Care Note Critical Care Time?: No Stability Stability form required: No Heart Score Heart Score: Heart Score Response (Comments) Value History N/A 0 EKG N/A 0 Age N/A 0 Risk Factors N/A 0 Troponin N/A 0 Total 0 DERRICK AVITIA NP March 05, 2025 16:06
[2025-03-05 16:39] LABS: Urine Bacteria None Seen /hpf (None Seen)
--- NOTE | 2025-03-05 16:39 | DVHHP2 ---
History of Present Illness Reason for Visit: generalized weakness History of Present Illness 79-year-old female with a complex medical history including chronic kidney disease (CKD), cerebrovascular accident (CVA), type 2 diabetes mellitus, hypertension, hyperlipidemia, hypothyroidism, glaucoma, and coronary artery disease with prior PTCA and stent placement, presenting with inability to ambulate due to worsening right leg pain over the past 4�5 days. The pain is localized to the right knee, calf, and the bottom of the foot, and described as severe and limiting weight-bearing. She denies recent trauma or falls, no chest pain, shortness of breath, or urinary complaints. She does report generalized weakness and some lower back pain. Her , present at bedside, reports significant functional decline, prompting a referral to the ED by her primary care physician. The patient denies known history of rheumatoid arthritis. In the ED, CBC was notable for a WBC of 11.0. Inflammatory markers were elevated with ESR 81 and CRP 15.38. Lactate was 1.1, and chest X-ray was unremarkable. COVID and influenza screens were negative. will admit to medical unit Past Medical History see hpi above Past Surgical History see hpi above Family History Reviewed, non-contributory to the management of this case. Past Social History The patient lives at home, denies smoking, alcohol or illicit drugs abuse. Review of Systems Constitutional: No: Fever, Chills, Sweats, Weakness, Malaise, Other Eyes: No: Pain, Vision change, Conjunctivae inflammation, Eyelid inflammation, Other, Redness ENT: No: Ear pain, Ear discharge, Nose pain, Nose discharge, Nose congestion, Mouth pain, Mouth swelling, Throat pain, Throat swelling, Other Respiratory: No: Cough, Dry, Shortness of breath, SOB with excertion, Wheezing, Hemoptysis, Pleuritic Pain, Sputum, Wheezing, Other Cardiovascular: No: Chest Pain, Palpitations, Orthopnea, Paroxysmal Noc. Dyspnea, Edema, Lt Headedness, Other Gastrointestinal: No: Nausea, Vomiting, Abdominal Pain, Diarrhea, Constipation, Melena, Hematochezia, Other Genitourinary: No Dysuria, No Frequency, No Incontinence, No Hematuria, No Retention, No Other Musculoskeletal: other (right ext with mild swelling and right knee swelling no heat compartment full rom to leg); No: neck pain, shoulder pain, arm pain, back pain, hand pain, leg pain, foot pain Skin: No: Rash, Lesions, Jaundice, Bruising, Other Neurological: No: Weakness, Numbness, Incoordination, Change in speech, Confusion, Seizures, Other Allergies: Coded Allergies: Ibuprofen (Verified Allergy, Unknown, 06/20/24) Exam Vital Signs Vital Signs Date Time Temp Pulse Resp B/P (MAP) Pulse Ox O2 Delivery O2 Flow Rate FiO2 03/05/25 14:52 74 18 97 Room Air 03/05/25 14:52 98.7 157/66 (96) 98.7 General Appearance: Alert, Oriented X3, Cooperative, No acute distress HEENT: Atraumatic, PERRLA, EOMI, Mucous membr. moist/pink Respiratory: Clear to auscultation, Normal air movement Cardiovascular: Regular rate, Normal S1, Normal S2, No murmurs Abdominal: Normal bowel sounds, Soft, No tenderness, No hepatospenomegaly, No masses Extremities: No clubbing, No cyanosis, Normal pulses, Other (right knee compartment no effusion no erythema, decrease rom, some calf pain ) Skin: No rashes, No breakdown, No significant lesion Psych/Mental Status: Mental status NL, Mood NL Labs/Xrays Chest x-ray unremarkable I reviewed labs, imaging CT scan abdomen pelvis, EKG and all diagnostic studies on this patient from ED records and the medical chart Labs Test 03/05/25 14:45 03/05/25 14:37 Range/Units White Blood Count 11.0 H 4.4-10.8 10^3/uL Red Blood Count 4.95 4.0-5.20 10^6/uL Hemoglobin 13.4 12.2-16.2 g/dL Hematocrit 40.2 36.0-46.0 % Mean Corpuscular Volume 81.2 80.0-100.0 fL Mean Corpuscular Hemoglobin 27.1 L 28.0-32.0 pg Mean Corpuscular Hemoglobin Concent 33.3 32.0-36.0 g/dL Red Cell Distribution Width 14.3 11.8-14.3 % Platelet Count 333 140-450 10^3/uL Mean Platelet Volume 8.7 6.9-10.8 fL Neutrophils (%) (Auto) 61.9 37.0-80.0 % Lymphocytes (%) (Auto) 27.9 10.0-50.0 % Monocytes (%) (Auto) 8.0 0.0-12.0 % Eosinophils (%) (Auto) 0.8 0.0-7.0 % Basophils (%) (Auto) 1.4 0.0-2.0 % Neutrophils # (Auto) 6.8 1.6-8.6 10 ^3/uL Lymphocytes # (Auto) 3.1 0.4-5.4 10 ^3/uL Monocytes # (Auto) 0.9 0-1.3 10 ^3/uL Eosinophils # (Auto) 0.1 0-0.8 10 ^3/uL Basophils # (Auto) 0.1 0-0.2 10 ^3/uL Nucleated Red Blood Cells 0.1 % Erythrocyte Sedimentation Rate 81 H 0-20 mm/hr Sodium Level 138 136-145 mmol/L Potassium Level 3.8 3.5-5.1 mmol/L Chloride Level 104 98-107 mmol/L Carbon Dioxide Level 25 20-31 mmol/L Anion Gap 9 5-15 Blood Urea Nitrogen 19 9-23 mg/dL Creatinine 0.80 0.550-1.02 mg/dL Glomerular Filtration Rate Calc 74 >90 mL/min BUN/Creatinine Ratio 23.8 H 10.0-20.0 Serum Glucose 89 74-106 mg/dL Lactic Acid Level 1.1 0.4-2.0 mmol/L Calcium Level 9.6 8.7-10.4 mg/dL Total Bilirubin 0.7 0.2-1.0 mg/dL Aspartate Amino Transferase (AST) 14 13-40 U/L Alanine Aminotransferase (ALT) < 9 7-40 U/L Alkaline Phosphatase 76 46-116 U/L C-Reactive Protein High Sensitivity 15.38 H <1.0 mg/dL Total Protein 8.0 5.7-8.2 g/dL Albumin 4.5 3.2-4.8 g/dL Influenza Type A Antigen Negative Negative Influenza Type B Antigen Negative Negative SARS-CoV-2 Antigen (Rapid) Negative NEGATIVE Assessment/Plan Assessment/Plan acute generalized weakness cxr normal ordered ck and ua fu results ordered PT consult fu results ordered ivf hydration for now ordered ua ordered us fu results ordered RA factor fu results acute lower back pain ordered ct l spine ordered morphine prn pain ordered PT consult fu results acute right knee pain xry knee fu results ordered morphine as needed pain acute leukocytosis unknown etiology cxr normal ordered ua fu results monitor for fever no antibiotics for now chronic problems ckf cva dm ISS hld htn AR hypothyroidism ordered TSH fen/ppx diet ivf no gi ppx since no hx of gerds or gi bleed scd plan admit to medicine Plan discussed with: Patient Date of Service: March 05, 2025 Billing Provider: KARINA SKY DNP Common Visit Codes: 53775-UASZOYI INP/OBS CARE (HIGH) KARINA SKY DNP March 05, 2025 16:39
[2025-03-05 17:01] LABS: Urine Blood 1+ /uL (Negative); Urine Budding Yeast OCCASIONAL /hpf (None Seen); Urine Clarity Turbid (Clear); Urine Color Yellow (Yellow); Urine Mucus FEW (None Seen); Urine Protein, UAD 1+ (Negative); Urine Specific Gravity 1.027 (1.001-1.035); Urine Squamous Epithelial Cell MOD /hpf (<5); Urine Urobilinogen 4 mg/dL (Negative); Urine WBC 14 /HPF (0-5); Urine pH 5.5 (5.0-9.0)
[2025-03-05] MEDS ORDERED: ONDANSETRON HCL 4 MG/2 ML VIAL IV PRN (17:15)
[2025-03-05] MEDS ORDERED: NITROGLYCERIN 0.4 MG SL TAB SL PRN (17:15)
[2025-03-05] MEDS ORDERED: DOCUSATE SOD 100 MG CAP PO PRN (17:15)
--- NOTE | 2025-03-05 17:46 | DVH ---
EXAM: XY R KNEE 3V XRAY CLINICAL HISTORY: eval for fx COMPARISON: None TECHNIQUE: XY R KNEE 3V XRAY Findings/Impression: 3 views of the right knee. There is no evidence of an acute fracture, dislocation, blastic, or lytic lesions. No radiopaque foreign bodies. Chondrocalcinosis of bilateral menisci. Small joint effusion. [id number] soft tissue edema.
--- NOTE | 2025-03-05 18:03 | DVH ---
Bilateral lower extremity venous duplex Clinical History: eval for dvt Comparison: US RT LOWER DVT on DOS: 10/28/24, US RT LOWER DVT on DOS: 06/13/23 Technique: Duplex Doppler evaluation of the deep venous systems of both lower extremities from the common femora l veins to the popliteal veins including color Doppler and spectral/pulsed waveform analysis was perf ormed. Findings: RIGHT SIDE: The common femoral vein demonstrates appropriate compressibility and waveform variability. There is compressibility/patency of the great saphenous vein at the proximal thigh. The femoral vein demonstrates appropriate compressibility and waveform variability. The deep femoral vein demonstrates appropriate compressibility and waveform variability. The popliteal vein demonstrates appropriate compressibility and waveform variability. There is normal compressibility at the tibioperoneal trunk. LEFT SIDE: The common femoral vein demonstrates appropriate compressibility and waveform variability. There is compressibility/patency of the great saphenous vein at the proximal thigh. The femoral vein demonstrates appropriate compressibility and waveform variability. The deep femoral vein demonstrates appropriate compressibility and waveform variability. The popliteal vein demonstrates appropriate compressibility and waveform variability. There is normal compressibility at the tibioperoneal trunk. Impression: In the right lower extremity there is a complex structure in the posterior fossa measuring 6.2 cm. Po ssibly kraus's cyst. Clinical correlation is recommended. 1. No right or left femoropopliteal venous thrombosis.
--- NOTE | 2025-03-05 18:13 | DVH ---
EXAM: CT LS SPINE WO CONTRAST INDICATION: eval for lower back pain EXAM DATE: 03/05/2025 05:21 PM COMPARISON: None TECHNIQUE: Multiple axial CT images of the lumbar spine were obtained using bone algorithm. Axial and coronal reformatting was done. Bone and soft tissue windows were reviewed. Radiation Dose Information: CT Dose: CTDI volume is 29.51 mGy. Dose-length product is 1064.42 mGy*cm Findings: There are 5 nonrib-bearing lumbar vertebrae. There is no evidence of an acute fracture. Mild spondylosis. The vertebral body heights are well-main tained. Grade 1 retrolisthesis of L2 on L3. Multilevel moderate to severe degenerative disc disease. No spinal canal stenosis. The alignment is within normal limits. The paraspinal soft tissues appear within normal limits. The v isualized portions of the abdomen are unremarkable. Impression: 1. No evidence of an acute fracture. 2. Mild degenerative changes of the lumbar spine with multilevel moderate to severe degenerative disc disease. 3. Grade 1 retrolisthesis of L2 on L3.
[2025-03-05] MEDS: MORPHINE SULFATE INJ 2 MG/ml SYRG IV ONE (18:50)
[2025-03-05] MEDS: ENOXAPARIN SOD 40 MG/0.4 ML SYRINGE SC SCH (18:50)
[2025-03-05 21:11] VITALS: RESP 19; O2SAT 98
[2025-03-05 22:11] VITALS: PULSE 67; RESP 18
[2025-03-06] VITALS (8 sets, daily range): BP systolic 114–152; BP diastolic 45–63; PULSE 64–69; RESP 15–18; TEMP 97.8–99.1; O2SAT 91–98
[2025-03-06] MEDS: MORPHINE SULFATE INJ 2 MG/ml SYRG IV PRN (01:19)
[2025-03-06 07:40] LABS: Basophils # (auto) 0.1 10 ^3/uL (0-0.2); Basophils % (auto) 0.9 % (0.0-2.0); Eosinophils # (auto) 0.2 10 ^3/uL (0-0.8); Eosinophils % (auto) 1.8 % (0.0-7.0); Hematocrit 35.5 % (36.0-46.0); Hemoglobin 11.7 g/dL (12.2-16.2); Lymphocytes # (auto) 2.8 10 ^3/uL (0.4-5.4); Mean Corpuscular Hemoglobin 26.7 pg (28.0-32.0); Mean Corpuscular Hgb Conc. 32.9 g/dL (32.0-36.0); Mean Corpuscular Volume 81.1 fL (80.0-100.0); Monocytes # (auto) 0.9 10 ^3/uL (0-1.3); Monocytes % (auto) 9.6 % (0.0-12.0); Neutrophils # (auto) 5.3 10 ^3/uL (1.6-8.6); Neutrophils % (auto) 57.7 % (37.0-80.0); Platelet Count (auto) 304 10^3/uL (140-450); Red Blood Cells 4.38 10^6/uL (4.0-5.20); White Blood Cell 9.2 10^3/uL (4.4-10.8)
[2025-03-06 08:57] LABS: Albumin 3.8 g/dL (3.2-4.8); Alkaline Phosphatase 69 U/L (46-116); Anion Gap 11 (5-15); BUN/Creatinine Ratio 31.4 (10.0-20.0); Blood Urea Nitrogen 22 mg/dL (9-23); Calcium 9.6 mg/dL (8.7-10.4); Carbon Dioxide 22 mmol/L (20-31); Chloride 104 mmol/L (98-107); Sodium 137 mmol/L (136-145); Total Protein 6.8 g/dL (5.7-8.2)
[2025-03-06 08:59] LABS: Alanine Aminotransferase < 9 U/L (7-40); Aspartate Aminotransferase 11 U/L (13-40); Glucose 180 mg/dL (74-106); Potassium 3.4 mmol/L (3.5-5.1)
[2025-03-06 09:19] LABS: Folate (Folic Acid) 15.95 ng/mL (>5.38)
[2025-03-06 09:25] LABS: LDL Cholesterol 54 mg/dL (< 100)
[2025-03-06 09:26] LABS: Cholesterol 99 mg/dL (< 200)
[2025-03-06 09:28] LABS: HDL Cholesterol 17 mg/dL (40-59); Triglycerides 188 mg/dL (< 150)
[2025-03-06] MEDS ORDERED: MESA10003 RE (10:19)
[2025-03-06] MEDS ORDERED: LEV75T PO (10:20)
[2025-03-06] MEDS: FAMOTIDINE 20 MG TAB PO ONE (10:45)
--- NOTE | 2025-03-06 12:23 | DVH ---
Indication: hip joint disease bilateral hip x-ray to look for sacroilia Technique: 5 views pelvis Comparison: None FINDINGS/IMPRESSION: No radiographic evidence for acute fracture or dislocation. No significant soft tissue edema. No radi opaque foreign body. There are mild degenerative changes of the bilateral sacroiliac joints, [id number]. Mild degenerate changes bilateral hips.
[2025-03-06] MEDS: KETOROLAC TROMETH 30 MG/ML 1ML VIAL IV ONE (14:00)
[2025-03-06] MEDS ORDERED: IBUPROFEN 600 MG TAB PO SCH ×2 (14:00→22:00)
[2025-03-06] MEDS: POTASSIUM EFFERVESENT TAB 25 MEQ PO ONE (14:00)
[2025-03-06] MEDS: LOSARTAN POTASSIUM 50 MG TAB PO ONE (15:37)
[2025-03-06] MEDS ORDERED: DEXTROSE (50%) 50ML SYRG IV PRN (17:45)
--- NOTE | 2025-03-06 17:46 | DVHPNRES ---
Progress Note Date Seen: March 06, 2025 Resident Creating Document: KINDRA LAWRENCE RESIDENT Medical Necessity Reason Pt with a Central, PICC or Fol: No Subjective Review of Systems Patient was a 79-year-old female with a past medical history are described below presented to the ER with a chief complaint of pain in multiple joints since the last 1 week. Patient reported that she was apparently well until the last week when on Tuesday she started to have pain in the right knee and the right ankle and then she started to have back in her back extending from her neck to her sacrum. On talking with the patient's and reviewing the records patient has had similar episodes but not this severe where she had joint pains and was treated with pain medication and sent home but patient never got a workup done. Patient reports that she has arthritis but does not know what kind. Patient has a history of lower GI bleed following which colonoscopy was done and patient was diagnosed with a tubular adenoma in February 2024 and apparently patient has been taking mesalamine she does not know for what but ulcerative colitis is suspected. Patient denies any recent history of fever, chills, travel. Past medical history: Coronary artery disease status post PCI with a 1 EDWIN, i nsulin dependent type 2 diabetes mellitus, hypertension, CKD, glaucoma, COPD on oxygen at night 2 L/min Past surgical history: PCI Social history: Patient is an ex-smoker with 40-45 pack year smoking history, denies any alcohol or other drug use, lives with family Medications: Carvedilol 6.25 mg, clopidogrel, Farxiga, Kerendia, mesalamine 800 mg b.i.d., Protonix, timolol and travoprost for glaucoma, losartan Review of systems Patient seen and examined at bedside Currently is in extreme pain in multiple joints including right knee, right ankle, back and shoulders Denies abdominal pain, chest pain, nausea or vomiting, chills Objective vital signs Vital Sign Date Time Temp Pulse Resp B/P (MAP) Pulse Ox O2 Delivery O2 Flow Rate FiO2 03/06/25 15:37 148/78 03/06/25 10:41 65 18 03/06/25 08:00 98 Nasal Cannula* 2 28 03/06/25 05:00 98.7 98.7 Total Intake and Output 03/05/25 03/05/25 03/06/25 15:00 23:00 07:00 Intake Total 250 ml Balance 250 ml medications Current Medications Medications Dose Ordered Sig/Lance Route Start Time Stop Time Status Last Admin Dose Admin Ondansetron HCl 4 mg Q4HP PRN IV 03/05/25 17:15 Morphine Sulfate 2 mg Q4HPRN PRN IV 03/05/25 17:15 03/06/25 10:11 2 MG Enoxaparin Sodium 40 mg DAILY SC 03/05/25 17:15 03/06/25 10:11 40 MG Ibuprofen 600 mg TID PO 03/06/25 14:00 UNV Pantoprazole Sodium 40 mg DAILY@0600 PO 03/07/25 06:00 Carvedilol 6.25 mg Q12HR PO 03/06/25 22:00 Losartan Potassium 50 mg DAILY PO 03/07/25 10:00 Clopidogrel Bisulfate 75 mg DAILY PO 03/07/25 10:00 Empaglifozin 10 mg DAILY PO 03/07/25 10:00 Insulin Glargine 15 units HS SC 03/06/25 22:00 Levothyroxine Sodium 75 mcg QAM@0600 PO 03/07/25 06:00 Mesalamine 800 mg BID PO 03/06/25 22:00 Timolol Maleate 1 drop BID EACHEYE 03/06/25 22:00 Patient Own Medication 1 HS OP 03/06/25 22:00 Patient Own Medication 1 DAILY OP 03/07/25 10:00 Examination Constitutional: Patient was alert and oriented x4 and appears to be in moderate distress because of the pain Gen - no pallor, no icterus, no cyanosis, no clubbing, no LAD, no edema . Skin - Patients skin is warm and dry. HEENT - normocephalic, atraumatic, moist mucous membranes. Neck - full ROM, no LAD, no JVD Pulmonary - B/L vesicular breath sounds. no crackles , no wheezing, no stridor. cardiovascular - normal S1,S2 heard. no murmurs heard. GI - soft, nontender abdomen. no hepatospleenomegaly. Bowel sounds normoactive Musculoskeletal: Right knee swollen with a palpable tenderness and bogginess, mild swelling in the right ankle Neurological - Bilateral upper extremity strength 4/5, bilateral lower extremity strength 3/5, no facial droop, normal speech, no tremor, no sensory deficiets. laboratory and microbiology Laboratory Tests 03/06/25 06:27 Test 03/06/25 06:27 Range/Units Serum Glucose 180 H 74-106 mg/dL Problem List/Assessment/Plan Problem List/Assessment/Plan Acute intractable joint pain in multiple joints ? Seronegative spondyloarthropathy ? Ankylosing spondylitis ? Rheumatoid arthritis - elevated CRP and ESR - H/O ? Ulcerative Colitis positive stool calprotectin - pain control with the NSAIDs - morphine for breakthrough pain - rheumatoid factor negative but NELLY panel and anti-CCP antibodies pending -lumbar CT shows grade 1 retrolisthesis of L2 and L3, mild spondylosis, multilevel [id number] degenerative disc disease - pelvic x-ray shows degenerative changes of the bilateral sacroiliac joints, degenerative changes in bilateral hips Acute on chronic hypoxic respiratory failure COPD, no Exacerbation - on oxygen via nasal cannula, maintain SpO2 > 90% Hypertensive heart disease with ?diastolic heart failure, no exacerbation Coronary artery disease s/p PCI with 1 EDWIN - continued on carvedilol and losartan and Jardiance - on clopidogrel ? Ulcerative colitis - patient was been taking mesalamine as prescribed by her GI physician, continued Uncontrolled insulin-dependent type 2 diabetes mellitus - HbA1c 7.1% - insulin Lantus 15 units SC - mild insulin sliding scale DVT prophylaxis: Enoxaparin PUD prophylaxis: Protonix Goals of care discussed with the patient and her Nilay for over 27 minutes. Full code Plan discussed with Dr. Avila Plan discussed with: Patient, Spouse, Other (Nurse (Marley)) My Orders My Orders Orders - KINDRA LAWRENCE RESIDENT Procedure Category Date Status Time Ccp Igg/Iga Antibody LAB 03/06/25 In Process 10:38 Pelvis Ap XY 03/06/25 Resulted 10:38 Urine Bacterial FLAIKTA 03/06/25 In Process Culture 14:24 Pantoprazole Tablet PHA 03/07/25 In Process (Protonix Tablet) 06:00 Carvedilol Tablet PHA 03/06/25 In Process (Coreg Tablet) 22:00 Losartan Tablet PHA 03/07/25 In Process (Cozaar Tablet) 10:00 Clopidogrel Bisulfate PHA 03/07/25 In Process (Plavix) 10:00 Empagliflozin PHA 03/07/25 In Process (Jardiance) 10:00 Insulin Lantus PHA 03/06/25 In Process (Glargine) (Lantus) 22:00 Levothyroxine Tablet PHA 03/07/25 In Process (Synthroid Tablet) 06:[address] Capsule PHA 03/06/25 In Process (Delzicol Delayed 22:00 Timolol 0.5% Opth PHA 03/06/25 In Process Soln (Timoptic 0.5%) 22:00 Patients Own PHA 03/06/25 In Process Medication 22:00 Patients Own PHA 03/07/25 In Process Medication 10:00 Date of Service: March 06, 2025 Billing Provider: ZACH AVILA MD Common Visit Codes: [id number] INP/OBS CARE(HIGH) KINDRA LAWRENCE RESIDENT March 06, 2025 17:46 ZACH AVILA MD March 09, 2025 15:28
[2025-03-06] MEDS: TIMOLOL MAL 0.5% OPTH(EYE) SOL 5ML EACHEYE SCH (20:48)
[2025-03-06] MEDS: MESALAMINE 400mg Delayed Release Cap PO SCH (21:29)
[2025-03-06] MEDS: ACCU-CHEK COMFORT CURVE STRIP VI SCH (21:30)
[2025-03-06] MEDS: NAPROXEN 500 MG TAB PO SCH (21:30)
[2025-03-06] MEDS: INSULIN LANTUS (GLARGINE) 1 /0.01ml (100units/ml) SC SCH (21:34)
[2025-03-06] MEDS: InsuLIN REG 1unit/0.01ml Soln (100units/ml) SC SCH (21:34)
[2025-03-06] MEDS: CARVEDILOL 3.125 MG TAB PO SCH (21:35)
[2025-03-06] MEDS ORDERED: FAMOTIDINE 20 MG TAB PO SCH (22:00)
[2025-03-07] VITALS (8 sets, daily range): BP systolic 106–137; BP diastolic 48–87; PULSE 50–61; RESP 16–18; TEMP 97.2–98; O2SAT 95–99
[2025-03-07] MEDS: LEVOTHYROXINE SODIUM 25 MCG TAB PO SCH (06:19)
[2025-03-07] MEDS: PANTOPRAZOLE 40 MG TAB PO SCH (06:19)
[2025-03-07 06:45] LABS: Chloride 102 mmol/L (98-107); Potassium 4.3 mmol/L (3.5-5.1); Sodium 137 mmol/L (136-145)
[2025-03-07 06:46] LABS: Anion Gap 8 (5-15); Calcium 9.4 mg/dL (8.7-10.4); Carbon Dioxide 27 mmol/L (20-31)
[2025-03-07 06:47] LABS: Basophils # (auto) 0.1 10 ^3/uL (0-0.2); Basophils % (auto) 0.8 % (0.0-2.0); Eosinophils # (auto) 0.2 10 ^3/uL (0-0.8); Eosinophils % (auto) 2.1 % (0.0-7.0); Hematocrit 35.6 % (36.0-46.0); Hemoglobin 11.6 g/dL (12.2-16.2); Lymphocytes # (auto) 2.7 10 ^3/uL (0.4-5.4); Lymphocytes % (auto) 28.5 % (10.0-50.0); Mean Corpuscular Hemoglobin 26.3 pg (28.0-32.0); Mean Corpuscular Hgb Conc. 32.7 g/dL (32.0-36.0); Mean Corpuscular Volume 80.4 fL (80.0-100.0); Monocytes # (auto) 0.8 10 ^3/uL (0-1.3); Monocytes % (auto) 8.4 % (0.0-12.0); Neutrophils # (auto) 5.6 10 ^3/uL (1.6-8.6); Neutrophils % (auto) 60.2 % (37.0-80.0); Platelet Count (auto) 324 10^3/uL (140-450); Red Blood Cells 4.43 10^6/uL (4.0-5.20); Red Cell Distribution Width 13.8 % (11.8-14.3); White Blood Cell 9.3 10^3/uL (4.4-10.8)
[2025-03-07 06:51] LABS: BUN/Creatinine Ratio 34.5 (10.0-20.0)
[2025-03-07 07:00] LABS: Blood Urea Nitrogen 30 mg/dL (9-23); Glucose 188 mg/dL (74-106)
[2025-03-07] MEDS: LOSARTAN POTASSIUM 50 MG TAB PO SCH (10:00)
[2025-03-07] MEDS: EMPAGLIFLOZIN 10 MG TAB PO SCH (10:03)
[2025-03-07] MEDS: CLOPIDOGREL BISULFATE 75 MG TAB PO SCH (10:03)
[2025-03-07] MEDS: [UNRECOGNIZED DRUG - OTHER] OP SCH (10:12)
--- NOTE | 2025-03-07 17:58 | DVHPNRES ---
Progress Note Date Seen: March 07, 2025 Resident Creating Document: JHDanaJKINDRA Calle RESIDENT Medical Necessity Reason Pt with a Central, PICC or Fol: No Subjective Review of Systems Patient seen and examined at bedside Pain improved Denies abdominal pain, chest pain, nausea or vomiting, chills Objective vital signs Vital Sign Date Time Temp Pulse Resp B/P (MAP) Pulse Ox O2 Delivery O2 Flow Rate FiO2 03/07/25 16:46 97.5 50 16 106/50 (68) 99 97.5 03/07/25 08:00 Nasal Cannula* 2 28 Total Intake and Output 03/06/25 03/06/25 03/07/25 15:00 23:00 07:00 Intake Total 500 ml 600 ml Balance 500 ml 600 ml medications Current Medications Medications Dose Ordered Sig/Lance Route Start Time Stop Time Status Last Admin Dose Admin Ondansetron HCl 4 mg Q4HP PRN IV 03/05/25 17:15 Morphine Sulfate 2 mg Q4HPRN PRN IV 03/05/25 17:15 03/06/25 10:11 2 MG Enoxaparin Sodium 40 mg DAILY SC 03/05/25 17:15 03/07/25 10:04 40 MG Ibuprofen 600 mg TID PO 03/06/25 14:00 UNV Pantoprazole Sodium 40 mg DAILY@0600 PO 03/07/25 06:00 03/07/25 06:19 40 MG Carvedilol 6.25 mg Q12HR PO 03/06/25 22:00 Losartan Potassium 50 mg DAILY PO 03/07/25 10:00 Clopidogrel Bisulfate 75 mg DAILY PO 03/07/25 10:00 03/07/25 10:03 75 MG Empaglifozin 10 mg DAILY PO 03/07/25 10:00 03/07/25 10:03 10 MG Insulin Glargine 15 units HS SC 03/06/25 22:00 03/06/25 21:34 15 UNITS Levothyroxine Sodium 75 mcg QAM@0600 PO 03/07/25 06:00 03/07/25 06:19 75 MCG Mesalamine 800 mg BID PO 03/06/25 22:00 03/07/25 10:06 800 MG Timolol Maleate 1 drop BID EACHEYE 03/06/25 22:00 03/07/25 10:02 1 DROP Patient Own Medication 1 HS OP 5/7/25 22:00 Patient Own Medication 1 DAILY OP 03/07/25 10:00 03/07/25 10:12 1 Naproxen 250 mg BID PO 03/06/25 22:00 03/07/25 10:04 250 MG Diagnostic Test (Pha) 1 strip ACHS 03/06/25 22:00 03/07/25 16:38 1 STRIP Insulin Human Regular ACHS SC 03/06/25 22:00 03/07/25 16:38 3 UNITS Dextrose 50 ml UD PRN IV 03/06/25 17:45 Examination Constitutional: Patient was alert and oriented x4 and appears to be in moderate distress because of the pain Gen - no pallor, no icterus, no cyanosis, no clubbing, no LAD, no edema . Skin - Patients skin is warm and dry. HEENT - normocephalic, atraumatic, moist mucous membranes. Neck - full ROM, no LAD, no JVD Pulmonary - B/L vesicular breath sounds. no crackles , no wheezing, no stridor. cardiovascular - normal S1,S2 heard. no murmurs heard. GI - soft, nontender abdomen. no hepatospleenomegaly. Bowel sounds normoactive Musculoskeletal: Right knee swollen with a palpable tenderness and bogginess, mild swelling in the right ankle Neurological - Bilateral upper extremity strength 4/5, bilateral lower extremity strength 3/5, no facial droop, normal speech, no tremor, no sensory deficiets. laboratory and microbiology Laboratory Tests 03/07/25 05:57 Test 03/07/25 05:57 Range/Units Serum Glucose 188 H 74-106 mg/dL Microbiology Date/Time Source Procedure Growth Status 03/06/25 15:00 Voided Urine Urine Culture - Preliminary Resulted Problem List/Assessment/Plan Problem List/Assessment/Plan Acute intractable joint pain in multiple joints ? Seronegative spondyloarthropathy ? Ankylosing spondylitis ? Rheumatoid arthritis - elevated CRP and ESR - H/O ? Ulcerative Colitis positive stool calprotectin - pain control with the NSAIDs - morphine for breakthrough pain - rheumatoid factor negative but NELLY panel and anti-CCP antibodies pending -lumbar CT shows grade 1 retrolisthesis of L2 and L3, mild spondylosis, multilevel [id number] degenerative disc disease - pelvic x-ray shows degenerative changes of the bilateral sacroiliac joints, degenerative changes in bilateral hips Acute on chronic hypoxic respiratory failure COPD, no Exacerbation - on oxygen via nasal cannula, maintain SpO2 > 90% Hypertensive heart disease with ?diastolic heart failure, no exacerbation Coronary artery disease s/p PCI with 1 EDWIN - continued on carvedilol and losartan and Jardiance - on clopidogrel ? Ulcerative colitis - patient was been taking mesalamine as prescribed by her GI physician, continued Uncontrolled insulin-dependent type 2 diabetes mellitus - HbA1c 7.1% - insulin Lantus 15 units SC - mild insulin sliding scale DVT prophylaxis: Enoxaparin PUD prophylaxis: Protonix Goals of care discussed with the patient and her Nilay for over 23 minutes. Full code Plan discussed with Dr. Avila Plan discussed with: Patient, Spouse Date of Service: March 07, 2025 Billing Provider: ZACH AVILA MD Common Visit Codes: [id number] INP/OBS CARE(HIGH) KINDRA LAWRENCE RESIDENT March 07, 2025 17:58 ZACH AVILA MD March 09, 2025 15:40
[2025-03-08 01:00] VITALS: BP 108/53; PULSE 57; RESP 16; TEMP 98.2; O2SAT 98
[2025-03-08 05:00] VITALS: BP 149/60; PULSE 55; RESP 18; TEMP 97.5; O2SAT 96
[2025-03-08 06:12] LABS: Basophils # (auto) 0.1 10 ^3/uL (0-0.2); Eosinophils # (auto) 0.2 10 ^3/uL (0-0.8); Hemoglobin 11.8 g/dL (12.2-16.2); Nucleated Red Blood Cells % 0.1 %
[2025-03-08 06:14] LABS: Anion Gap 12 (5-15); Carbon Dioxide 24 mmol/L (20-31); Chloride 104 mmol/L (98-107); Potassium 4.3 mmol/L (3.5-5.1); Sodium 140 mmol/L (136-145)
[2025-03-08 06:15] LABS: Basophils % (auto) 1.5 % (0.0-2.0); Calcium 9.9 mg/dL (8.7-10.4); Eosinophils % (auto) 2.7 % (0.0-7.0); Hematocrit 36.1 % (36.0-46.0); Lymphocytes # (auto) 2.1 10 ^3/uL (0.4-5.4); Lymphocytes % (auto) 30.9 % (10.0-50.0); Mean Corpuscular Hemoglobin 26.6 pg (28.0-32.0); Mean Corpuscular Hgb Conc. 32.7 g/dL (32.0-36.0); Mean Corpuscular Volume 81.2 fL (80.0-100.0); Monocytes # (auto) 0.5 10 ^3/uL (0-1.3); Monocytes % (auto) 7.2 % (0.0-12.0); Neutrophils % (auto) 57.7 % (37.0-80.0); Platelet Count (auto) 331 10^3/uL (140-450); Red Blood Cells 4.45 10^6/uL (4.0-5.20); Red Cell Distribution Width 13.7 % (11.8-14.3); White Blood Cell 6.9 10^3/uL (4.4-10.8)
[2025-03-08 06:20] LABS: BUN/Creatinine Ratio 47.1 (10.0-20.0)
[2025-03-08 06:40] LABS: Blood Urea Nitrogen 33 mg/dL (9-23); Glucose 154 mg/dL (74-106)
[2025-03-08 09:24] VITALS: BP 142/76; PULSE 58; RESP 18; TEMP 97.9; O2SAT 98
[2025-03-08] MEDS: SODIUM CHLORIDE 0.9% 500 ML IV ONE (09:46)
[2025-03-08] MEDS ORDERED: NAP500T PO (12:36)
[2025-03-08 13:16] VITALS: BP 123/40; PULSE 66; RESP 16; TEMP 97.2; O2SAT 93
[2025-03-08 14:03] VITALS: BP 142/76; PULSE 58; TEMP 36.2
--- NOTE | 2025-03-08 19:11 | DVHDSRES ---
Discharge Summary Date of Admission Resident Creating Document: KINDRA LAWRENCE RESIDENT March 05, 2025 at 17:06 Date of Discharge: March 08, 2025 Admitting Diagnosis acute generalized weakness acute lower back pain acute right knee pain acute leukocytosis unknown etiology chronic problems Wounds: none Labs/Diagnostic Data: Laboratory Results Test 03/08/25 11:24 03/08/25 05:31 03/07/25 05:57 03/06/25 11:52 POC Glucose 204 mg/dl (70-106) White Blood Count 6.9 10^3/uL (4.4-10.8) Red Blood Count 4.45 10^6/uL (4.0-5.20) Hemoglobin 11.8 g/dL (12.2-16.2) Hematocrit 36.1 % (36.0-46.0) Mean Corpuscular Volume 81.2 fL (80.0-100.0) Mean Corpuscular Hemoglobin 26.6 pg (28.0-32.0) Mean Corpuscular Hemoglobin Concent 32.7 g/dL (32.0-36.0) Red Cell Distribution Width 13.7 % (11.8-14.3) Platelet Count 331 10^3/uL (140-450) Mean Platelet Volume 8.6 fL (6.9-10.8) Neutrophils (%) (Auto) 57.7 % (37.0-80.0) Lymphocytes (%) (Auto) 30.9 % (10.0-50.0) Monocytes (%) (Auto) 7.2 % (0.0-12.0) Eosinophils (%) (Auto) 2.7 % (0.0-7.0) Basophils (%) (Auto) 1.5 % (0.0-2.0) Neutrophils # (Auto) 4.0 10 ^3/uL (1.6-8.6) Lymphocytes # (Auto) 2.1 10 ^3/uL (0.4-5.4) Monocytes # (Auto) 0.5 10 ^3/uL (0-1.3) Eosinophils # (Auto) 0.2 10 ^3/uL (0-0.8) Basophils # (Auto) 0.1 10 ^3/uL (0-0.2) Nucleated Red Blood Cells 0.1 % Sodium Level 140 mmol/L (136-145) Potassium Level 4.3 mmol/L (3.5-5.1) Chloride Level 104 mmol/L (98-107) Carbon Dioxide Level 24 mmol/L (20-31) Anion Gap 12 (5-15) Blood Urea Nitrogen 33 mg/dL (9-23) Creatinine 0.70 mg/dL (0.550-1.02) Glomerular Filtration Rate Calc 87 mL/min (>90) BUN/Creatinine Ratio 47.1 (10.0-20.0) Serum Glucose 154 mg/dL (74-106) Calcium Level 9.9 mg/dL (8.7-10.4) Anti-Nuclear Antibody Screen Negative (Negative) Anti-Cyclic Citrullinated Peptide 7 units (0-19) Test 03/06/25 06:27 03/05/25 14:45 03/05/25 14:37 03/05/25 14:32 Hemoglobin A1c 7.1 % A1C (<5.7) Total Bilirubin 1.0 mg/dL (0.2-1.0) Aspartate Amino Transferase (AST) 11 U/L (13-40) Alanine Aminotransferase (ALT) < 9 U/L (7-40) Alkaline Phosphatase 69 U/L (46-116) Total Protein 6.8 g/dL (5.7-8.2) Albumin 3.8 g/dL (3.2-4.8) Triglycerides Level 188 mg/dL (< 150) Cholesterol Level 99 mg/dL (< 200) LDL Cholesterol 54 mg/dL (< 100) HDL Cholesterol 17 mg/dL (40-59) Vitamin B12 Level 376 pg/mL (211-911) Vitamin D 25-Hydroxy 36.8 ng/mL (30.0-100) Folic Acid 15.95 ng/mL (>5.38) Erythrocyte Sedimentation Rate 81 mm/hr (0-20) Lactic Acid Level 1.1 mmol/L (0.4-2.0) Creatine Kinase 25 U/L (34-145) C-Reactive Protein High Sensitivity 15.38 mg/dL (<1.0) Thyroid Stimulating Hormone (TSH) 1.24 uIU/mL (0.55-4.78) Rheumatoid Factor 13.3 IU/mL (<14.0) Influenza Type A Antigen Negative (Negative) Influenza Type B Antigen Negative (Negative) SARS-CoV-2 Antigen (Rapid) Negative (NEGATIVE) Urine Color Yellow (Yellow) Urine Clarity Turbid (Clear) Urine pH 5.5 (5.0-9.0) Urine Specific [place] 1.027 (1.001-1.035) Urine Protein 1+ (Negative) Urine Ketones Trace (Negative) Urine Blood 1+ /uL (Negative) Urine Nitrite Negative (Negative) Urine Bilirubin Negative (Negative) Urine Urobilinogen 4 mg/dL (Negative) Urine Leukocyte Esterase 2+ /uL (Negative) Urine RBC 12 /hpf (0 - 4) Urine Microscopic WBC 14 /HPF (0-5) Urine Squamous Epithelial Cells Mod /hpf (<5) Urine Bacteria None seen /hpf (None Seen) Urine Mucus Few (None Seen) Urine Yeast (Budding) Occasional /hpf (None Urine Glucose 4+ mg/dL (Normal) Other Laboratory Tests 03/08/25 05:31 Brief Hx & Hospital Course: HPI Patient was a 79-year-old female with a past medical history are described below presented to the ER with a chief complaint of pain in multiple joints since the last 1 week. Patient reported that she was apparently well until the last week when on Tuesday she started to have pain in the right knee and the right ankle and then she started to have back in her back extending from her neck to her sacrum. On talking with the patient's and reviewing the records patient has had similar episodes but not this severe where she had joint pains and was treated with pain medication and sent home but patient never got a workup done. Patient reports that she has arthritis but does not know what kind. Patient has a history of lower GI bleed following which colonoscopy was done and patient was diagnosed with a tubular adenoma in February 2024 and apparently patient has been taking mesalamine she does not know for what but ulcerative colitis is suspected. Patient denies any recent history of fever, chills, travel. Past medical history: Coronary artery disease status post PCI with a 1 EDWIN, i nsulin dependent type 2 diabetes mellitus, hypertension, CKD, glaucoma, COPD on oxygen at night 2 L/min Past surgical history: PCI Social history: Patient is an ex-smoker with 40-45 pack year smoking history, denies any alcohol or other drug use, lives with family Medications: Carvedilol 6.25 mg, clopidogrel, Farxiga, Kerendia, mesalamine 800 mg b.i.d., Protonix, timolol and travoprost for glaucoma, losartan Brief hospital course Patient presented to the hospital with a chief complaint of pain in multiple joints mostly in her right knee and with the spine. ESR and CRP elevated. Patient has a history of suspected ulcerative colitis as she was taking mesalamine and colonoscopy done in February of 2024 showed tubular adenoma and fecal calprotectin was positive. We suspected seronegative spondyloarthropathy patient underwent pelvic x-ray which showed degenerative changes more in the left than the right sacroiliac joint and lumbar CT spine shows degenerative changes in the lumbar spine with multilevel [id number] degenerative disc disease. Patient was started on naproxen 250 mg b.i.d. with significant pain relief. Rheumatoid factor was negative but NELLY panel and anti CCP antibodies results are pending. Patient was continued on her home blood pressure medications and medications for glaucoma, ulcerative colitis and insulin was given for uncontrolled insulin dependent type 2 diabetes mellitus. Patient's pain improved significantly and physical therapy evaluation was done which recommended patient with a walker but the patient has a walker at home and was discharged home in stable condition. Discharge plan Discharged home Medications: Naproxen 250 mg b.i.d. for 10 days, continue home medications Follow up with the PCP in 1 week and patient needs follow up with the deputy editor in chief for further workup Consults/Reason for consult none Operations or Procedures none Condition at Discharge: Good Final Diagnosis/Problems List Acute intractable joint pain in multiple joints ? Seronegative spondyloarthropathy likely Ankylosing spondylitis ? Rheumatoid arthritis Acute on chronic hypoxic respiratory failure COPD, no Exacerbation Hypertensive heart disease with ?diastolic heart failure, no exacerbation Coronary artery disease s/p PCI with 1 EDWIN ? Ulcerative colitis Uncontrolled insulin-dependent type 2 diabetes mellitus Discharge Disposition: Home Discharge Instruct/Medications Diet: Cardiac 2g Na,low cholest Activity: No Restrictions, As Tolerated Follow Up/Referral: Follow up in the discharge clinic in one week Follow up with the PCP in 1 week for further referral to deputy editor in chief Medications: as per EMR Discharge Statement: "Patient was advised to return to the ER or call 911 if any headaches, dizziness, shortness of breath, chest pain, abdominal pain, bleeding, fevers, or worsening of medical condition. Patient was counseled about treatment plan, medications, possible side effects, patient�verbalized understanding. All questions were answered to the best of my ability. This discharge took greater then 30 minutes in planning, reviewing documentation, counseling the patient, and discussing with other team members." ASSESSMENT ASSESSMENT Assessment Acute intractable joint pain in multiple joints ? Seronegative spondyloarthropathy likely Ankylosing spondylitis ? Rheumatoid arthritis Acute on chronic hypoxic respiratory failure COPD, no Exacerbation Hypertensive heart disease with ?diastolic heart failure, no exacerbation Coronary artery disease s/p PCI with 1 EDWIN ? Ulcerative colitis Uncontrolled insulin-dependent type 2 diabetes mellitus Date of Service: March 08, 2025 Billing Provider: ZACH AVILA MD Common Visit Codes: [id number] DISCH DAY >30min KINDRA LAWRENCE RESIDENT March 08, 2025 19:11 ZACH AVILA MD March 09, 2025 15:44
== END 2025-03-08 15:11 | disposition home or self-care (01) | DRG 545 ==
LOC: ER 12:49 → OVERFLOW 17:06 → CENTRAL 21:15
PROVIDERS: ADMIT Student in an Organized Health Care Education/Training Program; ATTEND Student in an Organized Health Care Education/Training Program
DX: M45.0 Ankylosing spondylitis of multiple sites in spine (principal); J96.21 Acute and chronic respiratory failure with hypoxia; K51.90 Ulcerative colitis, unspecified, without complications; D72.829 Elevated white blood cell count, unspecified; N18.9 Chronic kidney disease, unspecified; Z20.822 Contact with and (suspected) exposure to COVID-19; E03.9 Hypothyroidism, unspecified; E11.22 Type 2 diabetes mellitus with diabetic chronic kidney disease; M06.9 Rheumatoid arthritis, unspecified; I25.10 Atherosclerotic heart disease of native coronary artery without angina pectoris; I12.9 Hypertensive chronic kidney disease with stage 1 through stage 4 chronic kidney disease, or unspecified chronic kidney disease; Z86.73 Personal history of transient ischemic attack (TIA), and cerebral infarction without residual deficits; Z95.5 Presence of coronary angioplasty implant and graft; Z88.6 Allergy status to analgesic agent; Z88.3 Allergy status to other anti-infective agents; Z79.82 Long term (current) use of aspirin; Z79.4 Long term (current) use of insulin; Z79.899 Other long term (current) drug therapy
CPT/HCPCS: 36415; 71045; 72131; 72170; 73562; 80048; 80053; 80061; 81001; 82306; 82550; 82607; 82746; 82962; 83036; 83605; 84443; 85025; 85652; 86038; 86141; 86200; 86431; 87086; 87426; 87804; 93970; 96372; 96374; G0378; J1815; J1885